=== PATIENT | female | born 1960 | race Caucasian/White ===

== ENCOUNTER 2016-09-06 23:08 | Emergency (ER) | payer MEDICARE ==
[2016-09-06] MEDS ORDERED: Norco 10/325 MG Tablet PO ONE (23:39)
--- NOTE | 2016-09-06 23:45 | ERPHSYRPT ---
- History of Present Illness Time Seen by Provider: 09/06/16 23:35 Source: patient Exam Limitations: clinical condition Patient Subjective Stated Complaint: pt states she tripped over her dog causing her to fall and hit the window on the car with the left side of her head so hard she thought she broke the window and thought there should be bleeding -she is unsure of the exact time it happened -no loc no vomiting she is tired and has been all day and has a persistant headache tonight so her family thought she should be checked -there in obvious sign of injury no contusion no deformity -she has sl right sided neck pain when she turns her head to the far left -no numbness or tingling in extremeties and has been able to drive to [employer] and all around today Triage Nursing Assessment: pt is awake and talkative and able to answer questions Physician History: PATIENT WALKING HER DOG YESTERDAY, TRIPPED AND STRUCK HER HEAD AGAINST THE CAR DOOR WINDOW SUSTAINED HEADACHE, NECK PAIN AND DIZZINESS SINCE YESTERDAY. DENIES LOSS OF CONSCIOUSNESS, NUMBNESS, TINGLING IN EXTREMITIES. Occurred: yesterday Severity: moderate Head Injury Location: frontal, temporal Method of Injury: direct blow, fell Loss of Consciousness: no loss of consciousness, dazed Associated Symptoms: headaches, other (DIZZINESS) Allergies/Adverse Reactions: aripiprazole [From Abilify] Allergy (Verified 09/06/16 23:38) cyclobenzaprine HCl [From Flexeril] Allergy (Verified 09/06/16 23:37) Home Medications: Albuterol Sulfate [Ventolin Hfa] 1 puffs DAILY 09/06/16 [History] Amitriptyline HCl [Elavil] 1 tab HS 09/06/16 [History] Bupropion HCl [Wellbutrin] 75 mg DAILY 09/06/16 [History] Clonazepam 0.5 mg [Klonopin 0.5 MG] 1 tab HS 09/06/16 [History] Escitalopram Oxalate 10 mg [Lexapro 10 MG] 15 mg PO DAILY 09/06/16 [History] Meclizine HCl 25 mg [Antivert 25 mg] 1 tab DAILY 09/06/16 [History] Multivitamin with Folic Acid [One Daily Multivitamin Tablet] 1 tab DAILY [History] Omeprazole 20 MG [Prilosec 20 mg] 1 tab DAILY 09/06/16 [History] Hx Tetanus, Diphtheria Vaccination/Date Given: No Hx Influenza Vaccination/Date Given: No Hx Pneumococcal Vaccination/Date Given: No Immunizations Up to Date: No - Review of Systems Constitutional: No Fever, No Chills Eyes: No Symptoms Ears, Nose, & Throat: No Symptoms Respiratory: No Symptoms, No Cough, No Dyspnea Cardiac: No Symptoms, No Chest Pain, No Edema, No Syncope Abdominal/Gastrointestinal: No Symptoms, No Abdominal Pain, No Nausea, No Vomiting, No Diarrhea Genitourinary Symptoms: No Dysuria Musculoskeletal: Neck Pain, No Back Pain Skin: No Rash Neurological: Other (DIZZINESS), No Dizziness, No Focal Weakness, No Sensory Changes Psychological: No Symptoms Endocrine: No Symptoms All Other Systems: Reviewed and Negative - Past Medical History Pertinent Past Medical History: Yes Neurological History: Other ENT History: No Pertinent History Cardiac History: Arrhythmia, Hypertension Respiratory History: COPD Endocrine Medical History: No Pertinent History Musculoskeletal History: Arthritis, Other GI Medical History: GERD History: No Pertinent History Psycho-Social History: Anxiety Female Reproductive Disorders: No Pertinent History Other Medical History: FREQUENT PVCs vertigo history of abnormal vag bleeding which she is being treated for - Past Surgical History Past Surgical History: Yes Neuro Surgical History: No Pertinent History Cardiac: No Pertinent History Respiratory: No Pertinent History Gastrointestinal: Cholecystectomy Musculoskeletal: Orthopedic Surgery Female Surgical History: Tubal Ligation Other Surgical History: l foot - Social History Smoking Status: Current every day smoker How long have you smoked: 30 Exposure to second hand smoke: Yes Drug Use: none Patient Lives Alone: No - Female History Hx Last Menstrual Period: 4 months ago Hx Now: No - Nursing Vital Signs Nursing Vital Signs: Initial Vital Signs Temperature 98.4 F Temperature Source Oral Pulse Rate 80 Respiratory Rate 16 Blood Pressure [Right Arm] 120/78 Pain Intensity 3 - Physical Exam General Appearance: no apparent distress, alert Head Injury: tenderness (ANTERIOR SCALP, LEFT TEMPORAL, NO SWELLILN OR ECCHYMOSIS) Eye Exam: bilateral eye: normal inspection, PERRL, EOMI ENT Exam: airway nml, evidence of ENT injury Neck Exam: muscle spasm, tenderness (A RIGID CERVICAL APPLIED UPON ARRIVAL TO EMERGENCY ROOM) Cardiovascular/Respiratory Exam: chest non-tender Gastrointestinal/Abdominal Exam: soft, non tender, no distention, no mass Pelvic Exam: not done Back Exam: normal inspection, normal range of motion Extremity Exam: non-tender, normal range of motion 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 Exam: normal hearing, abnormal pupil position Coordination/Gait Exam: normal finger to nose Motor/Sensory Exam: no motor deficit DTR Exam: bicep (R): 2+, bicep (L): 2+, tricep (R): 2+, tricep (L): 2+, knee (R) : 2+, knee (L): 2+, ankle (R): 2+, ankle (L): 2+ SpO2: 95 Oxygen Delivery: Room Air - CT Exams Head CT Interpretation: Tele-radiologist Report, No/Intracranial Hemorrhag Cervical Spine CT Interpretation: Tele-radiologist Report (NO FRACTURE, LOSS OF NORMAL CERVICAL LORDOSIS) Ordered Tests: Active Orders 24 hr Category Date Time Status Cervical Collar Application STAT Care 09/06/16 23:36 Active CERVICAL SPINE WO CONTRAST [CT] Stat Exams 09/06/16 23:36 Taken HEAD WITHOUT CONTRAST [CT] Stat Exams 09/06/16 23:36 Taken Medication Summary Discontinued Medications Generic Name Dose Route Start Last Admin Trade Name Jose PRN Reason Stop Dose Admin Acetaminophen 650 mg 09/07/16 00:16 09/07/16 00:21 Tylenol 325 Mg PO 09/07/16 00:17 650 mg STAT STA Administration Acetaminophen Confirm 09/07/16 00:20 Tylenol 325 Mg Administered 09/07/16 00:21 Dose 650 mg .ROUTE .STK-MED ONE Hydrocodone Bitart/Acetaminophen 1 tab 09/06/16 23:39 09/07/16 00:15 [place] 10/325 Mg Tablet PO 09/07/16 00:14 Not Given STAT ONE - Progress Progress Note: 09/06/16 23:47 PATIENT GIVEN TYLENOL 650MG ORALLY 09/07/16 00:46 Counseled pt/family regarding: diagnosis, need for follow-up, rad results - Departure Time of Disposition: 01:57 Departure Disposition: Home Clinical Impression: CLOSED HEAD SYNDROME, ACUTE CERVICAL STRAID Condition: Stable Critical Care Time: No Additional Instructions: [place] 5/325 EVERY 4 HOURS FOR PAIN NEEDED. CONSULT YOUR FAMILY PHYSICIAN FOR FOLLOWUP. RETURN TO THE EMERGENCY ROOM FOR INCREASING PAIN DISCOMFORT, Prescriptions: Hydrocodone/Acetaminophen [[place] 5-325 Tablet] 1 each PO Q4H PRN PRN #10 tablet PRN Reason: Pain
[2016-09-07] MEDS ORDERED: TYLENOL 325 MG PO STA (00:16)
[2016-09-07] MEDS ORDERED: TYLENOL 325 MG ONE (00:20)
[2016-09-07] MEDS ORDERED: Norco 10/325 MG Tablet PO ONE (00:54)
[2016-09-07] MEDS ORDERED: Norco 10/325 MG Tablet ONE (00:59)
[2016-09-07 01:18] VITALS: BP 121/78; PULSE 76; O2SAT 98
--- NOTE | 2016-09-07 09:08 | XRAY ---
Indication: Head injury against car. Multiple contiguous axial images obtained through the head without contrast. Comparison: None Normal appearing brain parenchyma, ventricles, and bony calvarium. Visualized paranasal sinuses and mastoid air cells are clear. Impression: Normal CT head without contrast exam. Comment: Preliminary interpretation was made by [facility]. No discrepancy. CT DI 51.54
--- NOTE | 2016-09-07 09:10 | XRAY ---
Indication: Head/neck injury against car. Multiple contiguous axial images obtained through the cervical spine. Sagittal and coronal reformatted images obtained. Comparison: None Axial images negative for acute fracture, suspicious bony lesions, or spinal canal stenosis. Minimal C3-C4 endplate spurring. Sagittal and coronal reformatted images demonstrates lordotic straightening, positional versus paraspinal muscular spasm. Disc spaces maintained. No acute compression fracture, subluxation, or jumped facet. Normal-appearing craniocervical junction. Visualized noncontrasted soft tissues demonstrates benign bilateral cervical nodes. Lung apices are clear. Impression: Negative for acute fracture/subluxation. Lordotic straightening, positional versus paraspinal spasm. Minimal C3-C4 degenerative spurring. Comment: Preliminary interpretation was made by [facility]. No critical discrepancy. CT DI 57.12
== END 2016-09-07 01:19 | disposition home or self-care (01) ==
LOC: ED 23:08
DX: S00.93XA Contusion of unspecified part of head, initial encounter (principal); S16.1XXA Strain of muscle, fascia and tendon at neck level, initial encounter; R51 Headache; W01.198A Fall on same level from slipping, tripping and stumbling with subsequent striking against other object, initial encounter; Y93.K1 Activity, walking an animal
CPT/HCPCS: 70450; 72125; 99283; L0172; A9270-GY

== ENCOUNTER 2017-05-11 05:55 | Day surgery (SDC) | payer MEDICARE ==
[2017-05-11] MEDS ORDERED: Ketamine HCl 50 MG/ML IV ONE (05:56)
[2017-05-11] MEDS ORDERED: DIPRIVAN 200 MG/20 ML IV ONE (05:56)
[2017-05-11] MEDS ORDERED: Lactated Ringers 1,000 ML IV SCH (06:30)
[2017-05-11 09:06] VITALS: BP 135/87; PULSE 85; O2SAT 93
--- NOTE | 2017-05-11 10:16 | OP ---
SURGERY DATE/TIME: 05/11/2017 0756 PREOPERATIVE DIAGNOSIS: Screening exam. POSTOPERATIVE DIAGNOSIS: Normal colon. PROCEDURE: Colonoscopy. SURGEON: Dr. Oconnell. ANESTHESIA: MAC. Medications given by anesthesia department. HISTORY: The patient is a 57 year-old white female presenting now for her first colonoscopy. She was appraised of the risks of the procedure including the risk of perforation, phlebitis, untoward reaction to medication, bleeding and missed lesions. The patient verbalized her understanding and desired to have the procedure performed. DESCRIPTION OF PROCEDURE: The patient was given the medications by the anesthesia department. She had continuous pulse oximetry, ECG monitoring, intermittent blood pressure monitoring and tidal CO2 monitoring during the examination. She was placed in the left lateral decubitus position. A digital rectal examination was performed and revealed normal anal sphincter tone and no masses. The flexible Olympus pediatric colonoscope was used to intubate the rectum. A view of the colon was developed sequentially to the cecum. Upon insertion and withdrawal, including a retroflex view in the rectum, no mucosal lesions were encountered. The scope was removed from the patient who tolerated the procedure well and was sent back to OP recovery in good condition. The prep was noted to be fair.
== END 2017-05-11 09:15 | disposition home or self-care (01) ==
LOC: SDC 05:55
PROVIDERS: ATTEND Family Medicine
PROC: 0DJD8ZZ Inspection of Lower Intestinal Tract, Via Natural or Artificial Opening Endoscopic (ICD-10-PCS; principal; 2017-05-11)
DX: Z12.11 Encounter for screening for malignant neoplasm of colon (principal)
CPT/HCPCS: 00812; J2704

== ENCOUNTER 2018-11-06 07:56 | Day surgery (SDC) | payer MEDICARE ==
[2012-03-02 23:16] VITALS: BP 140/80
[2018-11-06] MEDS ORDERED: Depo-Medrol 40 MG/ML IM ONE (07:57)
[2018-11-06] MEDS ORDERED: Marcaine 0.5% SDV 10 ML IJ ONE (07:57)
[2018-11-06] MEDS ORDERED: DIPRIVAN 200 MG/20 ML IV ONE (09:31)
[2018-11-06] MEDS ORDERED: Ketamine HCl 50 MG/ML ONE (09:31)
--- NOTE | 2018-11-06 11:35 | XRAY ---
4 seconds fluoroscopy time in surgery for left intra-articular knee injection.
--- NOTE | 2018-11-06 11:35 | XRAY ---
10 seconds fluoroscopy time in surgery for right intra-articular knee injection.
--- NOTE | 2018-11-06 11:35 | XRAY ---
Indication: Right knee intra-articular injection. Intraoperative fluoroscopy was provided for 10 seconds. Single digital spot image submitted for interpretation demonstrates needle tip projecting over the right intercondylar notch. Small amount of contrast injected for needle tip placement. Correlate with intraoperative findings/report.
--- NOTE | 2018-11-06 11:45 | XRAY ---
Indication: Left knee intra-articular injection. Intraoperative fluoroscopy was provided for 4 seconds. Single digital spot image submitted for interpretation demonstrates needle tip projecting over the left intercondylar notch. Small amount of contrast injected for needle tip placement. Correlate with intraoperative findings/report.
[2018-11-06] MEDS ORDERED: Lactated Ringers 1,000 ML IV ONE (13:10)
== END 2018-11-06 09:53 | disposition home or self-care (01) ==
LOC: SDC-PAIN 07:56
PROVIDERS: ATTEND Psychiatry & Neurology Pain Medicine
DX: M17.0 Bilateral primary osteoarthritis of knee (principal); E11.9 Type 2 diabetes mellitus without complications; E78.5 Hyperlipidemia, unspecified; F31.9 Bipolar disorder, unspecified; J44.9 Chronic obstructive pulmonary disease, unspecified; F41.9 Anxiety disorder, unspecified; I48.92 Unspecified atrial flutter; K21.9 Gastro-esophageal reflux disease without esophagitis; F17.200 Nicotine dependence, unspecified, uncomplicated
CPT/HCPCS: 20610; 73560; 77002; 82962; J1030; J2704; Q9966

== ENCOUNTER 2019-03-19 09:25 | Day surgery (SDC) | payer MEDICARE ==
[2012-03-02 23:16] VITALS: BP 140/80
[2019-03-19] MEDS ORDERED: Marcaine 0.5% SDV 10 ML IJ ONE (09:26)
[2019-03-19] MEDS ORDERED: Depo-Medrol 40 MG/ML IM ONE (09:26)
[2019-03-19] MEDS ORDERED: DIPRIVAN 200 MG/20 ML IV ONE (11:10)
[2019-03-19] MEDS ORDERED: Ketamine HCl 50 MG/ML ONE (11:10)
--- NOTE | 2019-03-19 12:38 | XRAY ---
9 seconds fluoroscopy time in surgery for left intra-articular shoulder injection.
--- NOTE | 2019-03-19 12:39 | XRAY ---
Indication: Left shoulder injection. Intraoperative fluoroscopy was provided for 9 seconds. Single digital spot image submitted for interpretation demonstrates needle tip projecting over the superior left glenohumeral joint. Small amount of contrast injected for needle tip placement. Correlate with intraoperative findings/report.
--- NOTE | 2019-03-19 12:39 | XRAY ---
Indication: Right shoulder injection. Intraoperative fluoroscopy was provided for 15 seconds. Single digital spot image submitted for interpretation demonstrates needle tip projecting over the superior right glenohumeral joint. Small amount of contrast injected for needle tip placement. Correlate with intraoperative findings/report.
--- NOTE | 2019-03-19 12:48 | XRAY ---
15 seconds fluoroscopy time in surgery for right intra-articular shoulder injection.
[2019-03-19] MEDS ORDERED: Lactated Ringers 1,000 ML IV ONE (15:17)
== END 2019-03-19 11:41 | disposition home or self-care (01) ==
LOC: SDC-PAIN 09:25
PROVIDERS: ATTEND Psychiatry & Neurology Pain Medicine
DX: M75.52 Bursitis of left shoulder (principal); M75.51 Bursitis of right shoulder; E78.5 Hyperlipidemia, unspecified; E11.9 Type 2 diabetes mellitus without complications; J44.9 Chronic obstructive pulmonary disease, unspecified; I48.92 Unspecified atrial flutter; K21.9 Gastro-esophageal reflux disease without esophagitis; F41.8 Other specified anxiety disorders; F31.9 Bipolar disorder, unspecified; Z79.899 Other long term (current) drug therapy
CPT/HCPCS: 20610; 73030; 77002; 82962; J1030; J2704; Q9966

== ENCOUNTER 2019-11-12 08:24 | Day surgery (SDC) | payer MEDICARE ==
[2012-03-02 23:16] VITALS: BP 140/80
[2019-11-12] MEDS ORDERED: Depo-Medrol 40 MG/ML IM ONE (08:25)
[2019-11-12] MEDS ORDERED: LIDOCAINE HCL 2% 100 MG/5 ML IJ ONE (08:25)
[2019-11-12] MEDS ORDERED: Ketamine HCl 50 MG/ML ONE (11:00)
[2019-11-12] MEDS ORDERED: DIPRIVAN 200 MG/20 ML IV ONE (11:00)
[2019-11-12] MEDS ORDERED: Lactated Ringers 1,000 ML IV ONE (13:52)
--- NOTE | 2019-11-15 17:58 | XRAY ---
Indication: Bilateral L3-S1 MBB. Intraoperative fluoroscopy was provided for 20 seconds. A PA digital spot image demonstrates posterior spinal needle tips projected over the expected course of the left and right L3-S1 nerve roots. Correlate with intraoperative findings/report.
--- NOTE | 2019-11-17 07:45 | XRAY ---
20 seconds fluoroscopy time in surgery for bilateral L3-S1 MBB.
== END 2019-11-12 11:32 | disposition home or self-care (01) ==
LOC: SDC-PAIN 08:24
PROVIDERS: ATTEND Psychiatry & Neurology Pain Medicine
DX: M47.816 Spondylosis without myelopathy or radiculopathy, lumbar region (principal); E11.9 Type 2 diabetes mellitus without complications; E78.5 Hyperlipidemia, unspecified; F31.9 Bipolar disorder, unspecified; I48.92 Unspecified atrial flutter; J44.9 Chronic obstructive pulmonary disease, unspecified; F41.9 Anxiety disorder, unspecified; Z79.899 Other long term (current) drug therapy
CPT/HCPCS: 64493; 64494; 64495; 72020; 77002; 82962; J1030; J2704

== ENCOUNTER 2019-12-19 15:50 | Emergency (ER) | payer MEDICARE ==
--- NOTE | 2019-12-19 16:27 | ERPHSYRPT ---
- History of Present Illness Time Seen by Provider: 12/19/19 16:05 Source: patient Exam Limitations: no limitations Patient Subjective Stated Complaint: fell a week ago today on a ramp and co pain to left hip, lower back and sacrum, she states her home pain meds are to working Triage Nursing Assessment: pt alert, resp easy, face mask in place, has large purple bruise to left buttuck, moves all ext well Physician History: This is an obese 59-year-old white female who has multiple pain issues and sees a pain specialist for chronic pain issues. She saw her pain specialist approximately 3 weeks ago. Patient does have chronic low back pain and presents with left hip pain, low back pain and pain in her coccyx after a fall that occurred 1 week ago when she slipped on a ramp at her home. She has no other complaints of pain today. Patient takes hydrocodone 7.5 daily for her chronic pain issues. she has noticed bruising in the coccyx area. She primarily wants to know if there is anything broken. Timing/Duration: week(s) Method of Injury: fall Quality: aching Back Pain Location: lumbar spine, coccyx Severity of Pain-Max: moderate Severity of Pain-Current: moderate Associated Symptoms: denies symptoms Previous symptoms: no prior history Allergies/Adverse Reactions: aripiprazole [From Abilify] Allergy (Verified 12/19/19 16:04) cyclobenzaprine HCl [From Flexeril] Allergy (Verified 12/19/19 16:04) Home Medications: Albuterol Sulfate [Ventolin Hfa] 1 puffs IH Q4HPRN PRN 09/06/16 [History] Bupropion HCl [Wellbutrin] 150 mg PO DAILY 09/06/16 [History] Meclizine HCl 25 mg [Antivert 25 mg] 12.5 mg PO DAILY 09/06/16 [History] Multivitamin with Folic Acid [One Daily Multivitamin Tablet] 1 tab DAILY 09/06/16 [History] Omeprazole 20 MG [Prilosec 20 mg] 1 tab PO DAILY 09/06/16 [History] Atorvastatin Calcium [Lipitor] 1 ea DAILY 12/19/19 [History] Hydrocodone/Acetaminophen [Hydrocodone-Acetamin 7.5-325] 1 ea TID 12/19/19 [History] Metformin HCl 500 mg [Glucophage 500 MG] 1 ea BID 12/19/19 [History] Quetiapine Fumarate 1 ea DAILY 12/19/19 [History] Hx Tetanus, Diphtheria Vaccination/Date Given: No Hx Influenza Vaccination/Date Given: No Hx Pneumococcal Vaccination/Date Given: No Immunizations Up to Date: Yes Travel Risk - International Travel Have you traveled outside of the country in past 3 weeks: No - Coronavirus Screening Are you exhibiting any of the following symptoms?: No Close contact with a COVID-19 positive Pt in past 14-21 Days: No - Review of Systems Constitutional: No Symptoms Eyes: No Symptoms Ears, Nose, & Throat: No Symptoms Respiratory: No Symptoms Cardiac: No Symptoms Abdominal/Gastrointestinal: No Symptoms Genitourinary Symptoms: No Symptoms Musculoskeletal: Back Pain, Fall, Injury Skin: Other (bruising ) Neurological: No Symptoms Psychological: No Symptoms Endocrine: No Symptoms Hematologic/Lymphatic: No Symptoms Immunological/Allergic: No Symptoms All Other Systems: Reviewed and Negative - Past Medical History Pertinent Past Medical History: Yes Neurological History: Other ENT History: Glaucoma Cardiac History: Arrhythmia, High Cholesterol, Hypertension Respiratory History: COPD Endocrine Medical History: Diabetes Type II Musculoskeletal History: Arthritis, Other GI Medical History: GERD History: No Pertinent History Psycho-Social History: Anxiety Female Reproductive Disorders: No Pertinent History Other Medical History: FREQUENT PVCs vertigo history of abnormal vag bleeding which she is being treated for - Past Surgical History Past Surgical History: Yes Neuro Surgical History: No Pertinent History Cardiac: No Pertinent History Respiratory: No Pertinent History Gastrointestinal: Cholecystectomy Genitourinary: No Pertinent History Musculoskeletal: Orthopedic Surgery Female Surgical History: Tubal Ligation, Other Other Surgical History: l foot,leep procedure - Social History Smoking Status: Current every day smoker How long have you smoked: 30 Exposure to second hand smoke: Yes Drug Use: none Patient Lives Alone: No - Female History Hx Last Menstrual Period: post Hx Now: No - Nursing Vital Signs Nursing Vital Signs: Initial Vital Signs Temperature 98.1 F 12/19/19 15:53 Pulse Rate 69 12/19/19 15:53 Respiratory Rate 18 12/19/19 15:53 Blood Pressure 142/78 12/19/19 15:53 O2 Sat by Pulse Oximetry 92 L 12/19/19 15:53 Pain Scale Pain Intensity [Sacrum] 8 Pain Intensity 8 - Physical Exam General Appearance: no apparent distress, alert, anxiety, obese Eye Exam: PERRL/EOMI, eyes nml inspection Ears, Nose, Throat Exam: normal ENT inspection, moist mucous membranes Neck Exam: normal inspection, non-tender, supple, full range of motion Respiratory Exam: normal breath sounds, lungs clear, airway intact, No chest tenderness, No respiratory distress Cardiovascular Exam: regular rate/rhythm, normal heart sounds, normal peripheral pulses Gastrointestinal Exam: soft, normal bowel sounds, No tenderness Pelvic Exam: not done Rectal Exam: not done Back Exam: normal inspection, normal range of motion, No CVA tenderness, No vertebral tenderness Extremity Exam: normal inspection, normal range of motion, pelvis stable Neurologic Exam: alert, oriented x 3, cooperative, pump mechanic II-XII nml as tested, normal mood/affect, nml cerebellar function, nml station & gait, sensation nml Skin Exam: normal color, warm, dry Lymphatic Exam: No adenopathy SpO2 Interpretation: borderline oxygenation SpO2: 92 O2 Delivery: Room Air - Course Nursing assessment & vital signs reviewed: Yes Ordered Tests: Active Orders 24 hr Category Date Time Status HIP UNI (2V) INCL PEL IF DONE Stat Exams 12/19/19 16:09 Ordered LUMBAR LIMITED (2 OR 3 VIEWS) Stat Exams 12/19/19 16:10 Ordered SACRUM AND COCCYX Stat Exams 12/19/19 Ordered - Progress Progress: unchanged Progress Note: 12/19/19 16:49 X-ray of pelvis shows no acute fracture dislocation X-ray of left hip shows no acute fracture or dislocation X-ray of sacrum and coccyx reveals no acute fracture or dislocation X-ray of lumbar spine reveals no acute fracture or subluxation. However there is a possible old/chronic posterior compression fracture present. Counseled pt/family regarding: diagnosis, need for follow-up, rad results - Departure Departure Disposition: Home Clinical Impression: Fall with injury, Contusion Condition: Stable Critical Care Time: No Referrals: AMALIA PINEDA MD [Primary Care Provider] - Additional Instructions: Ice pack to area 3 times a day for the next 48 hours. Take your hydrocodone at home as prescribed. Follow-up with your primary care or your pain specialist for further management of your pain issues.
--- NOTE | 2019-12-19 16:51 | XRAY ---
Indication: Pain left hip pain following fall one week ago. Comparison: None. 2 view left hip obtained. No bony, articular, or soft tissue abnormalities.
--- NOTE | 2019-12-19 16:51 | XRAY ---
Indication: Pain left hip pain following fall one week ago. Comparison: None. 3 view sacrum/coccyx demonstrates lower lumbar degenerative changes reported separately and mild aortoiliac calcifications. No other bony, articular, or soft tissue abnormalities.
--- NOTE | 2019-12-19 16:54 | XRAY ---
Indication: Pain left hip pain following fall one week ago. Comparison: January 24, 2012. 3 view lumbar spine unchanged again demonstrating normal alignment with L5-S1 disc space narrowing, moderate bilateral L5-S1 degenerative facet hypertrophy, mild aortic calcifications, and cholecystectomy clips. No new/acute findings.
[2019-12-19 16:57] VITALS: BP 111/63; PULSE 72; O2SAT 95
== END 2019-12-19 16:57 | disposition home or self-care (01) ==
LOC: ED 15:50
DX: S30.0XXS Contusion of lower back and pelvis, sequela (principal); W10.2XXA Fall (on)(from) incline, initial encounter; M25.552 Pain in left hip
CPT/HCPCS: 72100; 72220; 73502; 99283

== ENCOUNTER 2020-01-18 13:17 | Emergency (ER) | payer MEDICARE ==
[2020-01-18] MEDS ORDERED: XYLOCAINE 1% HCL 20 ML MDV IJ ONE (13:18)
--- NOTE | 2020-01-18 13:54 | ERPHSYRPT ---
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 hx abnormal vag bleeding in which OBGYN found fibroid tumor "when she did my pap smear. 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 reports bright red blood. post menopausal x 5 years. denies problems with urination or bowel. 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 hx abnormal vag bleeding in which OBGYN found fibroid tumor "when she did my pap smear. 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 reports bright red blood. post menopausal x 5 years. denies problems with urination or bowel. Timing/Duration: today Activites at Onset: none Quality: cramping Onset Location: LLQ Pain Radiation: none Severity of Pain-Max: mild Severity of Pain-Current: mild Prior abdominal problems: none Sexual intercourse history: non-contributory Modifying Factors: Improves With: nothing Associated Symptoms: denies symptoms Allergies/Adverse Reactions: aripiprazole [From Abilify] Allergy (Verified 01/18/20 13:34) cyclobenzaprine HCl [From Flexeril] Allergy (Verified 01/18/20 13:34) Home Medications: Albuterol Sulfate [Ventolin Hfa] 1 puffs IH Q4HPRN PRN 09/06/16 [History] Bupropion HCl [Wellbutrin] 150 mg PO DAILY 09/06/16 [History] Meclizine HCl 25 mg [Antivert 25 mg] 12.5 mg PO DAILY 09/06/16 [History] Multivitamin with Folic Acid [One Daily Multivitamin Tablet] 1 tab DAILY 09/06/16 [History] Omeprazole 20 MG [Prilosec 20 mg] 1 tab PO DAILY 09/06/16 [History] Atorvastatin Calcium [Lipitor] 1 ea DAILY 12/19/19 [History] Hydrocodone/Acetaminophen [Hydrocodone-Acetamin 7.5-325] 1 ea TID 12/19/19 [History] Metformin HCl 500 mg [Glucophage 500 MG] 1 ea BID 12/19/19 [History] Quetiapine Fumarate 1 ea DAILY 12/19/19 [History] Hx Tetanus, Diphtheria Vaccination/Date Given: Yes Hx Influenza Vaccination/Date Given: No Hx Pneumococcal Vaccination/Date Given: No Travel Risk - International Travel Have you traveled outside of the country in past 3 weeks: No - Coronavirus Screening Are you exhibiting any of the following symptoms?: No Close contact with a COVID-19 positive Pt in past 14-21 Days: No - Review of Systems Constitutional: No Fever, No Chills Eyes: No Symptoms Ears, Nose, & Throat: No Symptoms Respiratory: No Cough, No Dyspnea Cardiac: No Chest Pain, No Edema, No Syncope Abdominal/Gastrointestinal: No Abdominal Pain, No Nausea, No Vomiting, No Diarrhea Genitourinary Symptoms: Vaginal Bleeding, No Dysuria Musculoskeletal: No Back Pain, No Neck Pain Skin: No Rash Neurological: No Dizziness, No Focal Weakness, No Sensory Changes Psychological: No Symptoms Endocrine: No Symptoms All Other Systems: Reviewed and Negative - Past Medical History Pertinent Past Medical History: Yes Neurological History: Other ENT History: Glaucoma Cardiac History: Arrhythmia, High Cholesterol, Hypertension Respiratory History: COPD Endocrine Medical History: Diabetes Type II Musculoskeletal History: Arthritis, Other GI Medical History: GERD History: No Pertinent History Psycho-Social History: Anxiety Female Reproductive Disorders: No Pertinent History Other Medical History: FREQUENT PVCs vertigo history of abnormal vag bleeding which she is being treated for - Past Surgical History Past Surgical History: Yes Neuro Surgical History: No Pertinent History Cardiac: No Pertinent History Respiratory: No Pertinent History Gastrointestinal: Cholecystectomy Genitourinary: No Pertinent History Musculoskeletal: Orthopedic Surgery Female Surgical History: Tubal Ligation, Other Other Surgical History: l foot,leep procedure - Social History Smoking Status: Current every day smoker How long have you smoked: 30 Exposure to second hand smoke: Yes Drug Use: none Patient Lives Alone: No - Female History Hx Now: No - Nursing Vital Signs Nursing Vital Signs: Initial Vital Signs Temperature 98.3 F 01/18/20 13:33 Pulse Rate 72 01/18/20 13:33 Respiratory Rate 18 01/18/20 13:33 Blood Pressure 150/92 01/18/20 13:33 O2 Sat by Pulse Oximetry 93 L 01/18/20 13:33 Pain Scale Pain Intensity 1 - Physical Exam General Appearance: no apparent distress, alert Eye Exam: PERRL/EOMI, eyes nml inspection Ears, Nose, Throat Exam: normal ENT inspection, TMs normal, pharynx normal, moist mucous membranes Neck Exam: normal inspection, non-tender, supple, full range of motion Respiratory Exam: normal breath sounds, lungs clear, No respiratory distress Cardiovascular Exam: regular rate/rhythm, normal heart sounds, normal peripheral pulses Gastrointestinal/Abdomen Exam: soft, No tenderness, No mass Pelvic Exam: not done Rectal Exam: deferred Back Exam: normal inspection, normal range of motion, No CVA tenderness, No vertebral tenderness Extremity Exam: normal inspection, normal range of motion, pelvis stable Neurologic Exam: alert, oriented x 3, cooperative, utilization review nurse II-XII nml as tested, normal mood/affect, sensation nml, No motor deficits Skin Exam: normal color, warm, dry Lymphatic Exam: No adenopathy SpO2: 93 - Course Nursing assessment & vital signs reviewed: Yes Ordered Tests: Active Orders 24 hr Category Date Time Status PELVIS TRANS VAGINAL [US] Routine Exams 01/19/20 13:36 Ordered CBC W DIFF Stat Lab 01/18/20 14:00 Completed CMP Stat Lab 01/18/20 14:00 Received CULTURE,URINE Stat Lab 01/18/20 13:51 Received HCG, Quantitative (Inhouse) Stat Lab 01/18/20 14:00 Received UA W/RFX UR CULTURE Stat Lab 01/18/20 13:51 Completed Lab/Rad Data: Laboratory Result Diagrams 01/18/20 14:00 Laboratory Results 01/18/20 01/18/20 Range/Units 14:00 13:51 WBC 8.5 (4.0-10.5) K/mm3 RBC 4.51 (4.1-5.4) M/mm3 Hgb 15.0 (12.0-16.0) gm/dl Hct 46.4 (35-47) % MCV 102.9 H (78-100) fl MCH 33.3 H (26-32) pg MCHC 32.3 (32-36) g/dl RDW 14.1 H (11.5-14.0) % Plt Count 216 (150-450) K/mm3 MPV 8.5 (7.5-11.0) fl Gran % 64.5 (36.0-66.0) % Eos # (Auto) 0.10 (0-0.5) Absolute Lymphs (auto) 2.40 (1.0-4.6) Absolute Monos (auto) 0.50 (0.0-1.3) Lymphocytes % 28.2 (24.0-44.0) % Monocytes % 5.9 (0.0-12.0) % Eosinophils % 1.2 (0.00-5.0) % Basophils % 0.2 (0.0-0.4) % Absolute Granulocytes 5.48 (1.4-6.9) Basophils # 0.02 (0-0.4) Urine Color YELLOW (YELLOW) Urine Appearance CLEAR (CLEAR) Urine pH 6.0 (5-6) Ur Specific Occidental 1.013 (1.005-1.025) Urine Protein NEGATIVE (Negative) Urine Ketones NEGATIVE (NEGATIVE) Urine Blood MODERATE (0-5) Edin/ul Urine Nitrite NEGATIVE (NEGATIVE) Urine Bilirubin NEGATIVE (NEGATIVE) Urine Urobilinogen NEGATIVE (0-1) mg/dL Ur Leukocyte Esterase MODERATE (NEGATIVE) Urine WBC (Auto) 16-25 (0-5) /HPF Urine RBC (Auto) 0-2 (0-2) /HPF U Epithel Cells (Auto) NONE (FEW) /HPF Urine Bacteria (Auto) FEW (NEGATIVE) /HPF Unidentified Crystals 2-5 (NEGATIVE) /HPF Urine Mucus (Auto) SLIGHT (NEGATIVE) /HPF Urine Yeast (Budding) Few (NEGATIVE) /HPF Urine Culture Reflexed YES (NO) Urine Glucose NEGATIVE (NEGATIVE) mg/dL - Progress Progress: unchanged Air Movement: good Progress Note: 01/18/20 13:55 .Patient pelvic ultrasound transvaginal is ordered. Patient is going to get that ultrasound tomorrow at 1:30 PM. Outpatient order form given to the patient. Blood Culture(s) Obtained: No Antibiotics given: No Counseled pt/family regarding: diagnosis, need for follow-up (Pelvic transvginal US ordered for 01/19/2020 at 130 pm) - Departure Departure Disposition: Home Clinical Impression: Abnormal vaginal bleeding in postmenopausal patient Fibroid uterus Qualifiers: Uterine leiomyoma location: intramural Qualified Code(s): D25.1 - Intramural leiomyoma of uterus UTI (urinary tract infection) Qualifiers: Urinary tract infection type: acute pyelonephritis Qualified Code(s): N10 - Acute pyelonephritis Condition: Stable Critical Care Time: No Referrals: AMALIA PINEDA MD [Primary Care Provider] - Instructions: Uterine Fibroids, Heavy Periods (DC) Additional Instructions: Schedule for pelvic ultrasound tomorrow at 1:30 PM. Please bring these o utpatient form with you tomorrow. Discharge/Care Plan JOYCE THOMAS was seen on 01/18/20 in the Emergency Room. The patient was counseled regarding Diagnosis,Lab results, Imaging studies, need for follow up and when to return to the Emergency Room. Prescriptions given: Discharge Note I have spoken with the patient and/or caregivers. I have explained the patient's condition, diagnosis and treatment plan based on the information available to me at this time. I have answered the patient's and/or caregiver's questions and addressed any concerns. The patient and/or caregivers have as good understanding of the patient's diagnosis, condition and treatment plan as can be expected at this point. The vital signs have been stable. The patient's condition is stable and appropriate for discharge from the emergency department. The patient will pursue further outpatient evaluation with the primary care physician or other designated or consulting physician as outlined in the discharge instructions. The patient and/or caregivers are agreeable to this plan of care and follow-up instructions have been explained in detail. The patient and/or caregivers have received these instruction. The patient/and or caregivers are aware that any significant change in condition or worsening of symptoms should prompt an immediate return to this or the closest emergency department or call 911. JOYCE THOMAS was seen on 01/18/20 n the Emergency Room. At that time you were treated for an emergent condition, during your visit Laboratory, Radiology and/or other procedures may have been ordered. It is very important that you follow-up with your Primary Care Physician AMALIA PINEDA within the next 24-48 hours to review your Emergency Room visit and the final results of testing that was ordered. Some test results such as Urine Cultures, Blood Cultures, and other cultures if ordered will not be finalized for 24-48 hours. If you do not have a Primary Care Provider please call the medical records department at [phone] ext [phone] to obtain a copy of your results or you may sign into our patient portal to obtain these results by visiting us @ [email or web address] and completing the following steps: 1. Click on the Patient Portal link 2. Click the Patient Self Enrollment Link to complete the enrollment form and entering your 3. Once the enrollment form is completed you will receive an email with a temporary ID and password at the email address you provided. 4. Next choose a user name and password. Your user name must be at least 4 misael cters long and your password must be at least 4 characters long. 5. Choose a security question from the list and provide your answer to the question. If you already have signed into the Health Portal you may access your Health Care Information 13/11 by the following steps: 1. Login to our website @ [email or web address] 2. Enter your original user name and password. FAQS The [facility] Portal is an online tool that contains your Lab Results, Radiology Reports, Visit History, Discharge Instructions and Health Summary Lab and Radiology Results will not be available for 72 hours on the portal. The Portal is a secure site, passwords are encryted and URLs are re-written so they cannot be copied and pasted. You and authorized family members are the only ones who can access your Portal. Also there is a timeout feature that protects your information if you leave the Portal page open. If you have technical difficulty please use the Contact Us link on the page this will allow you to submit any questions you have regarding the Portal or you may contact the Medical Record Department at [phone]. Prescriptions: Smz/Tmp Ds Tablet [Bactrim Ds Tablet] 1 udtab PO BID #20 tablet
[2020-01-18 14:24] LABS: Absolute Neutrophil Ct (ANC) 5.48 (1.4-6.9); BASOPHIL % 0.2 % (0.0-0.4); Basophil (Absolute #) 0.02 (0-0.4); Eosinophil % 1.2 % (0.00-5.0); Hematocrit 46.4 % (35-47); Lymphocytes % 28.2 % (24.0-44.0); Mean Cell Volume 102.9 fl (78-100); Mean Corpuscular Hemoglobin 33.3 pg (26-32); Mean Corpuscular Hgb Concent. 32.3 g/dl (32-36); Mean Platelet Volume 8.5 fl (7.5-11.0); Monocytes % 5.9 % (0.0-12.0); Neutrophil % 64.5 % (36.0-66.0); Platelet Count 216 K/mm3 (150-450); Red Blood Count 4.51 M/mm3 (4.1-5.4); Red Cell Distribution Width 14.1 % (11.5-14.0); White Blood Count 8.5 K/mm3 (4.0-10.5)
[2020-01-18 14:35] LABS: Appearance CLEAR (CLEAR); Bacteria FEW /HPF (NEGATIVE); Bilirubin NEGATIVE (NEGATIVE); Blood MODERATE Ery/ul (0-5); Glucose NEGATIVE (NEGATIVE); Ketones NEGATIVE (NEGATIVE); Leukocyte Esterase MODERATE (NEGATIVE); Mucus SLIGHT /HPF (NEGATIVE); Nitrite NEGATIVE (NEGATIVE); Protein,Urine Dip NEGATIVE (Negative); RBC 0-2 /HPF (0-2); Specific Gravity 1.013 (1.005-1.025); Urobilinogen NEGATIVE mg/dL (0-1)
[2020-01-18 14:40] LABS: Budding Yeast Few /HPF (NEGATIVE)
[2020-01-18 14:50] LABS: ALBUMIN 3.9 g/dL (3.5-5.0); ALKALINE PHOSPHATASE 87 U/L (38-126); ANION GAP 6.4 MEQ/L (5-15); BLOOD UREA NITROGEN 12 mg/dL (7-17); CHLORIDE 104 mmol/L (98-107); Calcium 8.8 mg/dL (8.4-10.2); Carbon Dioxide 33 mmol/L (22-30); Creatinine 1 0.68 mg/dL (0.52-1.04); EST GLOMERULAR FILTRATION RATE > 60.0 ML/MIN; Glucose 124 mg/dL (74-106); HCG, Quantitative (Inhouse) 3.25 mIU/ml; Potassium 4.4 mmol/L (3.5-5.1); SGOT/AST 33 U/L (14-36); SGPT/ALT 18 U/L (0-35); SODIUM 139 mmol/L (137-145); Total Protein 6.6 g/dL (6.3-8.2)
[2020-01-18] MEDS ORDERED: Rocephin 1000 MG INJ IM ONE (14:50)
[2020-01-18] MEDS ORDERED: Rocephin 1000 MG INJ ONE (14:53)
[2020-01-18 15:08] VITALS: BP 133/83; PULSE 69; O2SAT 99
== END 2020-01-18 15:30 | disposition home or self-care (01) ==
LOC: ED 13:17
DX: N95.0 Postmenopausal bleeding (principal); N10 Acute pyelonephritis; R10.32 Left lower quadrant pain; D25.1 Intramural leiomyoma of uterus; N39.0 Urinary tract infection, site not specified
CPT/HCPCS: 36415; 80053; 81001; 84702; 85025; 87077; 87086; 87186; 96372; 99284; J0696

== ENCOUNTER 2020-03-30 06:06 | Day surgery (SDC) | payer MEDICARE ==
[2020-03-30] MEDS ORDERED: CEFAZOLIN 2 GM-D5W BAG** 2 GM/50 ML ML IV ONE (06:52)
[2020-03-30] MEDS ORDERED: Lactated Ringers 1,000 ML IV ONE (06:52)
[2020-03-30] MEDS ORDERED: Lactated Ringers 1,000 ML IV SCH (07:00)
[2020-03-30] MEDS ORDERED: CEFAZOLIN 2 GM-D5W BAG** 2 GM/50 ML ML IV SCH (07:00)
[2020-03-30] MEDS ORDERED: Xopenex 1.25 MG/0.5 ML UD NEBULE IH ONE ×2 (07:29→07:43)
[2020-03-30] MEDS ORDERED: Sodium Chloride 3 ML UD NEBULES IH ONE (07:43)
[2020-03-30] MEDS ORDERED: SUBLIMAZE 100 MCG/2 ML ONE (08:27)
[2020-03-30] MEDS ORDERED: Zofran 4 MG/2 ML VIAL ONE (08:27)
[2020-03-30] MEDS ORDERED: DIPRIVAN 200 MG/20 ML IV ONE (08:27)
[2020-03-30] MEDS ORDERED: Decadron 4 MG INJ ONE (08:27)
[2020-03-30] MEDS ORDERED: Versed 2 MG/2 ML Injection ONE (08:27)
[2020-03-30] MEDS ORDERED: Xylocaine-Mpf 2% 5 Ml Vial ONE (08:27)
[2020-03-30] MEDS ORDERED: TORAdol 30 mg Injection ONE (09:30)
[2020-03-30 10:06] VITALS: PULSE 70
[2020-03-30 10:26] VITALS: BP 155/77; O2SAT 99
--- NOTE | 2020-03-31 09:54 | OP ---
SURGERY DATE/TIME: 03/30/2020 0833 PREOPERATIVE DIAGNOSES: 1) Abnormal uterine bleeding. 2) Postmenopausal bleeding and submucosal fibroid. POSTOPERATIVE DIAGNOSES: 1) Abnormal uterine bleeding. 2) Postmenopausal bleeding. There was no submucosal fibroid that was noted. PROCEDURE: Hysteroscopy, D&C. SURGEON: Kirk Mooney D.O. CAN SLIDER: advanced manufacturing technician. ANESTHESIA: General. ESTIMATED BLOOD LOSS: Minimal. COMPLICATIONS: None. INDICATIONS: The risks, benefits, indications and alternatives of the procedure were reviewed with the patient prior to procedure. The patient understood the risk of infection, bleeding, bowel injury, bladder injury, ureteral injury, uterine perforation, pelvic infection and thromboembolic disorder associated with this surgery. However desires to have this surgery as a possible need to alleviate her current medical condition. DESCRIPTION OF PROCEDURE AND FINDINGS: At this point the patient is taken to the operating room, given general sedation, placed in dorsal lithotomy position. Prepped and draped in the usual sterile fashion. A weighted speculum is then placed in the patient's vagina and the anterior lip of the cervix was grasped with a single tooth tenaculum. Endocervical dilators are advanced through the endocervical canal as a means to dilate the cervix. At this point a 5 mm hysteroscope was then placed in through the endocervical canal where visualization revealed no gross abnormalities in the uterine cavity. From this point the hysteroscope was then removed and the curette was then placed into the fundal region where currettage was performed in all quadrants of the uterus retrieving a mild to moderate amount of tissue. At this point hemostasis was obtained. From this point all instruments were then removed from the patient's vaginal region. The patient was then taken out of anesthesia and then taken to the recovery room in stable condition. All instruments and laps were accounted for x2.
== END 2020-03-30 10:30 | disposition home or self-care (01) ==
LOC: SDC 06:06
PROVIDERS: ATTEND Obstetrics & Gynecology
DX: N95.0 Postmenopausal bleeding (principal); N93.9 Abnormal uterine and vaginal bleeding, unspecified; E11.9 Type 2 diabetes mellitus without complications; Z79.899 Other long term (current) drug therapy
CPT/HCPCS: 82947; 94640; J0690; J1100; J1885; J2250; J2405; J2704; J3010; A9270-GY

== ENCOUNTER 2020-05-26 09:24 | Day surgery (SDC) | payer MEDICARE ==
[2012-03-02 23:16] VITALS: BP 140/80
[2020-05-26] MEDS ORDERED: BUPIVACAINE 0.5% VIAL IJ ONE (09:25)
[2020-05-26] MEDS ORDERED: Depo-Medrol 40 MG/ML IM ONE (09:25)
[2020-05-26] MEDS ORDERED: DIPRIVAN 200 MG/20 ML IV ONE (11:31)
[2020-05-26] MEDS ORDERED: Ketamine HCl 50 MG/ML ONE (11:31)
--- NOTE | 2020-05-26 12:08 | XRAY ---
Indication: Bilateral L3-S1 MBB. Intraoperative fluoroscopy was provided for 21 seconds. Single digital spot image submitted for interpretation demonstrates posterior needle tips projecting over the expected left and right L3-S1 nerve roots. Correlate with intraoperative findings/report.
--- NOTE | 2020-05-26 12:13 | XRAY ---
21 seconds fluoroscopy time in surgery for bilateral L3-S1 MBB.
[2020-05-26] MEDS ORDERED: Lactated Ringers 1,000 ML IV ONE (14:39)
== END 2020-05-26 11:56 | disposition home or self-care (01) ==
LOC: SDC-PAIN 09:24
PROVIDERS: ATTEND Psychiatry & Neurology Pain Medicine
DX: M47.816 Spondylosis without myelopathy or radiculopathy, lumbar region (principal); E11.9 Type 2 diabetes mellitus without complications; E78.5 Hyperlipidemia, unspecified; J44.9 Chronic obstructive pulmonary disease, unspecified; K21.9 Gastro-esophageal reflux disease without esophagitis; F31.9 Bipolar disorder, unspecified; Z79.899 Other long term (current) drug therapy
CPT/HCPCS: 64493; 64494; 64495; 72020; 77002; 82947; J1030; J2704

== ENCOUNTER 2020-06-15 16:37 | Emergency (ER) | payer MEDICARE ==
[2020-06-15] MEDS ORDERED: BABY ASPIRIN 81 MG CHEW PO ONE (17:55)
--- NOTE | 2020-06-15 17:59 | ERPHSYRPT ---
- History of Present Illness Time Seen by Provider: 06/15/20 17:00 Source: patient Exam Limitations: no limitations Patient Subjective Stated Complaint: pt here for headache frontal for 06/03 after starting on percocet, stoped meds on . which helped her headache, she aslo was at eye dr today and has high pressures in eye, and is started on new drops today Triage Nursing Assessment: pt alert, resp easy, face mask in place, skin w/d/p Physician History: Patient is a 60-year-old female presents to our ED for evaluation of possible ACS. Patient states she has a history of chronic low back pain. Patient's pain doctor started her on Percocet. Patient states the Percocet has been causing her to experience a headache. Patient followed up with her primary care doctor. Patient reports that her doctor was concerned because she appeared to be diaphoretic in the office. Therefore patient was sent to our ED to assess for possible acute coronary syndrome. Patient does not have chest pain. Patient denied being diaphoretic. Patient is here per her primary care doctor's request. No nausea or vomiting. No diaphoresis at time of this physical examination. Patient only complains of a mild frontal headache for which she does not want to be treated. No associated numbness tingling or weakness. No trauma. No fever. Patient voices no other complaints or concerns at this time. Timing/Duration: today Severity: mild Modifying Factors: Improves With: nothing Associated Symptoms: denies symptoms Allergies/Adverse Reactions: aripiprazole [From Abilify] Allergy (Severe, Verified 06/15/20 16:44) Lightheadedness cyclobenzaprine HCl [From Flexeril] Allergy (Severe, Verified 06/15/20 16:44) Lightheadedness Home Medications: Bupropion HCl [Wellbutrin] 150 mg PO DAILY 09/06/16 [History] Meclizine HCl 25 mg [Antivert 25 mg] 25 mg PO DAILY 09/06/16 [History] Omeprazole 20 MG [Prilosec 20 mg] 1 tab PO DAILY 09/06/16 [History] Atorvastatin Calcium [Lipitor] 1 ea PO DAILY 12/19/19 [History] Hydrocodone/Acetaminophen [Hydrocodone-Acetamin 7.5-325] 1 ea PO TID 12/19/19 [History] Metformin HCl 500 mg [Glucophage 500 MG] 1 ea DAILY 12/19/19 [History] Quetiapine Fumarate 100 mg PO HS 12/19/19 [History] Naproxen Sodium [Aleve] 220 mg PO Q6HPRN PRN 03/10/20 [History] Docusate Sodium [Colace] 100 mg PO DAILY 03/30/20 [History] Escitalopram Oxalate [Lexapro] 20 mg PO DAILY 03/30/20 [History] Nebivolol HCl 5 MG [Bystolic 5 MG] 5 mg PO DAILY 03/30/20 [History] Quetiapine Fumarate 25 mg [Seroquel 25 MG] 25 mg PO BID 03/30/20 [History] Hx Tetanus, Diphtheria Vaccination/Date Given: Yes Hx Influenza Vaccination/Date Given: No Hx Pneumococcal Vaccination/Date Given: No Immunizations Up to Date: Yes Travel Risk - International Travel Have you traveled outside of the country in past 3 weeks: No - Coronavirus Screening Are you exhibiting any of the following symptoms?: No Close contact with a COVID-19 positive Pt in past 14-21 Days: No - Review of Systems Constitutional: No Symptoms, No Fever, No Chills Eyes: No Symptoms Ears, Nose, & Throat: No Symptoms Respiratory: No Symptoms, No Cough, No Dyspnea Cardiac: No Symptoms, No Chest Pain, No Edema, No Syncope Abdominal/Gastrointestinal: No Symptoms, No Abdominal Pain, No Nausea, No Vomiting, No Diarrhea Genitourinary Symptoms: No Symptoms, No Dysuria Musculoskeletal: No Symptoms, No Back Pain, No Neck Pain Skin: No Symptoms, No Rash Neurological: No Symptoms, No Dizziness, No Focal Weakness, No Sensory Changes Psychological: No Symptoms Endocrine: No Symptoms Hematologic/Lymphatic: No Symptoms Immunological/Allergic: No Symptoms All Other Systems: Reviewed and Negative - Past Medical History Pertinent Past Medical History: Yes Neurological History: Other ENT History: Glaucoma Cardiac History: Arrhythmia, High Cholesterol, Hypertension Respiratory History: COPD Endocrine Medical History: Diabetes Type II Musculoskeletal History: Arthritis, Other GI Medical History: GERD History: No Pertinent History Psycho-Social History: Anxiety Female Reproductive Disorders: No Pertinent History Other Medical History: FREQUENT PVCs vertigo history of abnormal vag bleeding which she is being treated for - Past Surgical History Past Surgical History: Yes Neuro Surgical History: No Pertinent History Cardiac: No Pertinent History Respiratory: No Pertinent History Gastrointestinal: Cholecystectomy Genitourinary: No Pertinent History Musculoskeletal: Orthopedic Surgery Female Surgical History: Tubal Ligation, Other Other Surgical History: l foot,leep procedure. laser eye surgery - Social History Smoking Status: Current every day smoker How long have you smoked: 30 Exposure to second hand smoke: Yes Drug Use: none Patient Lives Alone: No - Female History Hx Last Menstrual Period: post Hx Now: No - Nursing Vital Signs Nursing Vital Signs: Initial Vital Signs Temperature 97.2 F 06/15/20 16:55 Pulse Rate 77 06/15/20 16:55 Respiratory Rate 18 06/15/20 16:55 Blood Pressure 130/82 06/15/20 16:55 O2 Sat by Pulse Oximetry 95 06/15/20 16:55 Pain Scale Pain Intensity 4 - Physical Exam General Appearance: no apparent distress, alert Eye Exam: PERRL/EOMI, eyes nml inspection Ears, Nose, Throat Exam: normal ENT inspection, TMs normal, pharynx normal, m oist mucous membranes Neck Exam: normal inspection, non-tender, supple, full range of motion Respiratory Exam: normal breath sounds, lungs clear, No respiratory distress Cardiovascular Exam: regular rate/rhythm, normal heart sounds, normal peripheral pulses Gastrointestinal/Abdomen Exam: soft, normal bowel sounds, No tenderness, No mass Back Exam: normal inspection, normal range of motion, No CVA tenderness, No vertebral tenderness Extremity Exam: normal inspection, normal range of motion, pelvis stable Neurologic Exam: alert, oriented x 3, cooperative, surgery specialist II-XII nml as tested, normal mood/affect, nml cerebellar function, nml station & gait, sensation nml, No motor deficits, No sensory deficit Skin Exam: normal color, warm, dry, No rash Lymphatic Exam: No adenopathy SpO2 Interpretation: normal SpO2: 95 O2 Delivery: Room Air - Course Nursing assessment & vital signs reviewed: Yes EKG Interpreted by Me: RATE (69), Sinus Rhythm, NORMAL AXIS, NORMAL INTERVALS - Radiology Exams Chest X-ray Interpretation: Interpreted by me (Negative chest x-ray.) Ordered Tests: Active Orders 24 hr Category Date Time Status Quality Control Tech STAT Care 06/15/20 17:53 Active EKG-ER Only STAT Care 06/15/20 17:52 Active IV Insertion STAT Care 06/15/20 17:52 Active Pulse Oximetry (ED) STAT Care 06/15/20 17:52 Active CHEST 1 VIEW (PORTABLE) Stat Exams 06/15/20 17:53 Taken CBC W DIFF Stat Lab 06/15/20 06:10 Completed CMP Stat Lab 06/15/20 06:10 Completed MAGNESIUM Stat Lab 06/15/20 06:10 Completed TROPONIN Q3H Lab 06/15/20 06:10 Completed TROPONIN Q3H Lab 06/15/20 20:41 Completed TROPONIN Q3H Lab 06/16/20 00:00 Ordered TROPONIN Q3H Lab 06/16/20 03:00 Ordered TROPONIN Q3H Lab 06/16/20 06:00 Ordered UA W/RFX UR CULTURE Stat Lab 06/15/20 20:24 Completed Medication Summary Discontinued Medications Generic Name Dose Route Start Last Admin Trade Name Freq PRN Reason Stop Dose Admin Aspirin 324 mg 06/15/20 17:55 06/15/20 18:01 Baby Aspirin 81 Mg Chew PO 06/15/20 17:56 324 mg STAT ONE Administration Lab/Rad Data: Laboratory Result Diagrams 06/15/20 06:10 06/15/20 06:10 Laboratory Results 06/15/20 06/15/20 06/15/20 Range/Units 20:41 20:24 06:10 WBC (4.0-10.5) K/mm3 RBC (4.1-5.4) M/mm3 Hgb (12.0-16.0) gm/dl Hct (35-47) % MCV (78-100) fl MCH (26-32) pg MCHC (32-36) g/dl RDW (11.5-14.0) % Plt Count (150-450) K/mm3 MPV (7.5-11.0) fl Gran % (36.0-66.0) % Eos # (Auto) (0-0.5) Absolute Lymphs (auto) (1.0-4.6) Absolute Monos (auto) (0.0-1.3) Lymphocytes % (24.0-44.0) % Monocytes % (0.0-12.0) % Eosinophils % (0.00-5.0) % Basophils % (0.0-0.4) % Absolute Granulocytes (1.4-6.9) Basophils # (0-0.4) Sodium (137-145) mmol/L Potassium (3.5-5.1) mmol/L Chloride (98-107) mmol/L Carbon Dioxide (22-30) mmol/L Anion Gap (5-15) MEQ/L BUN (7-17) mg/dL Creatinine (0.52-1.04) mg/dL Estimated GFR ML/MIN Glucose (74-106) mg/dL Calcium (8.4-10.2) mg/dL Magnesium (1.6-2.3) mg/dL Total Bilirubin (0.2-1.3) mg/dL AST (14-36) U/L ALT (0-35) U/L Alkaline Phosphatase (38-126) U/L Troponin I < 0.012 < 0.012 (0.000-0.034) ng/mL Serum Total Protein (6.3-8.2) g/dL Albumin (3.5-5.0) g/dL Urine Color YELLOW (YELLOW) Urine Appearance CLEAR (CLEAR) Urine pH 6.0 (5-6) Ur Specific [place] 1.017 (1.005-1.025) Urine Protein NEGATIVE (Negative) Urine Ketones NEGATIVE (NEGATIVE) Urine Blood NEGATIVE (0-5) Edin/ul Urine Nitrite NEGATIVE (NEGATIVE) Urine Bilirubin NEGATIVE (NEGATIVE) Urine Urobilinogen NEGATIVE (0-1) mg/dL Ur Leukocyte Esterase NEGATIVE (NEGATIVE) Urine WBC (Auto) 0-2 (0-5) /HPF Urine RBC (Auto) NONE (0-2) /HPF U Hyaline Cast (Auto) 0-2 (0-2) /LPF U Epithel Cells (Auto) RARE (FEW) /HPF Urine Bacteria (Auto) NONE SEEN (NEGATIVE) /HPF Urine Mucus (Auto) SLIGHT (NEGATIVE) /HPF Urine Culture Reflexed NO (NO) Urine Glucose NEGATIVE (NEGATIVE) mg/dL 06/15/20 06/15/20 Range/Units 06:10 06:10 WBC 9.4 (4.0-10.5) K/mm3 RBC 4.85 (4.1-5.4) M/mm3 Hgb 15.0 (12.0-16.0) gm/dl Hct 48.6 H (35-47) % MCV 100.2 H (78-100) fl MCH 30.9 (26-32) pg MCHC 30.9 L (32-36) g/dl RDW 14.0 (11.5-14.0) % Plt Count 206 (150-450) K/mm3 MPV 8.2 (7.5-11.0) fl Gran % 69.5 H (36.0-66.0) % Eos # (Auto) 0.09 (0-0.5) Absolute Lymphs (auto) 2.19 (1.0-4.6) Absolute Monos (auto) 0.56 (0.0-1.3) Lymphocytes % 23.3 L (24.0-44.0) % Monocytes % 6.0 (0.0-12.0) % Eosinophils % 1.0 (0.00-5.0) % Basophils % 0.2 (0.0-0.4) % Absolute Granulocytes 6.54 (1.4-6.9) Basophils # 0.02 (0-0.4) Sodium 135 L (137-145) mmol/L Potassium 4.9 (3.5-5.1) mmol/L Chloride 99 (98-107) mmol/L Carbon Dioxide 33 H (22-30) mmol/L Anion Gap 7.9 (5-15) MEQ/L BUN 15 (7-17) mg/dL Creatinine 0.63 (0.52-1.04) mg/dL Estimated GFR > 60.0 ML/MIN Glucose 116 H (74-106) mg/dL Calcium 9.8 (8.4-10.2) mg/dL Magnesium 1.9 (1.6-2.3) mg/dL Total Bilirubin 0.60 (0.2-1.3) mg/dL AST 33 (14-36) U/L ALT 25 (0-35) U/L Alkaline Phosphatase 83 (38-126) U/L Troponin I (0.000-0.034) ng/mL Serum Total Protein 7.2 (6.3-8.2) g/dL Albumin 4.1 (3.5-5.0) g/dL Urine Color (YELLOW) Urine Appearance (CLEAR) Urine pH (5-6) Ur Specific [place] (1.005-1.025) Urine Protein (Negative) Urine Ketones (NEGATIVE) Urine Blood (0-5) Edin/ul Urine Nitrite (NEGATIVE) Urine Bilirubin (NEGATIVE) Urine Urobilinogen (0-1) mg/dL Ur Leukocyte Esterase (NEGATIVE) Urine WBC (Auto) (0-5) /HPF Urine RBC (Auto) (0-2) /HPF U Hyaline Cast (Auto) (0-2) /LPF U Epithel Cells (Auto) (FEW) /HPF Urine Bacteria (Auto) (NEGATIVE) /HPF Urine Mucus (Auto) (NEGATIVE) /HPF Urine Culture Reflexed (NO) Urine Glucose (NEGATIVE) mg/dL - Progress Progress: improved Progress Note: 06/15/20 21:24 Patient reassessed. She remains asymptomatic. Troponin negative x2. Patient has no chest pain or shortness of breath. No nausea vomiting. No diaphoresis. Headache resolved. Chest x-ray negative as well. Patient requesting discharge. Will discharge at this time. Patient agrees to follow-up with her primary care doctor within 48 hours for reevaluation. Patient voices no other complaints concerns at this time. Counseled pt/family regarding: lab results, diagnosis, need for follow-up, rad results - Departure Departure Disposition: Home Clinical Impression: Encounter for medical screening examination, Cough, Diaphoresis Condition: Stable Critical Care Time: No Referrals: AMALIA PINEDA MD [Primary Care Provider] - Additional Instructions: Discharge/Care Plan MARTHAJOYCE LIM was seen on 06/15/20 in the Emergency Room. The patient was counseled regarding Diagnosis,Lab results, Imaging studies, need for follow up and when to return to the Emergency Room. Prescriptions given: Discharge Note I have spoken with the patient and/or caregivers. I have explained the patient's condition, diagnosis and treatment plan based on the information available to me at this time. I have answered the patient's and/or caregiver's questions and addressed any concerns. The patient and/or caregivers have as good understanding of the patient's diagnosis, condition and treatment plan as can be expected at this point. The vital signs have been stable. The patient's condition is stable and appropriate for discharge from the emergency department. The patient will pursue further outpatient evaluation with the primary care physician or other designated or consulting physician as outlined in the disch arge instructions. The patient and/or caregivers are agreeable to this plan of care and follow-up instructions have been explained in detail. The patient and/or caregivers have received these instruction. The patient/and or caregivers are aware that any significant change in condition or worsening of symptoms should prompt an immediate return to this or the closest emergency department or call 911.
[2020-06-15 18:17] LABS: Absolute Neutrophil Ct (ANC) 6.54 (1.4-6.9); BASOPHIL % 0.2 % (0.0-0.4); Basophil (Absolute #) 0.02 (0-0.4); Eosinophil (Absolute #) 0.09 (0-0.5); Hematocrit 48.6 % (35-47); Lymphocyte (Absolute #) 2.19 (1.0-4.6); Lymphocytes % 23.3 % (24.0-44.0); Mean Cell Volume 100.2 fl (78-100); Mean Corpuscular Hemoglobin 30.9 pg (26-32); Mean Corpuscular Hgb Concent. 30.9 g/dl (32-36); Mean Platelet Volume 8.2 fl (7.5-11.0); Monocyte (Absolute #) 0.56 (0.0-1.3); Neutrophil % 69.5 % (36.0-66.0); Platelet Count 206 K/mm3 (150-450); Red Blood Count 4.85 M/mm3 (4.1-5.4); White Blood Count 9.4 K/mm3 (4.0-10.5)
[2020-06-15 18:39] LABS: ALBUMIN 4.1 g/dL (3.5-5.0); ALKALINE PHOSPHATASE 83 U/L (38-126); BLOOD UREA NITROGEN 15 mg/dL (7-17); Calcium 9.8 mg/dL (8.4-10.2); Carbon Dioxide 33 mmol/L (22-30); Creatinine 1 0.63 mg/dL (0.52-1.04); EST GLOMERULAR FILTRATION RATE > 60.0 ML/MIN; Glucose 116 mg/dL (74-106); MAGNESIUM 1.9 mg/dL (1.6-2.3); SGOT/AST 33 U/L (14-36); SGPT/ALT 25 U/L (0-35); SODIUM 135 mmol/L (137-145); Total Protein 7.2 g/dL (6.3-8.2)
[2020-06-15 18:52] LABS: CHLORIDE 99 mmol/L (98-107); Potassium 4.9 mmol/L (3.5-5.1)
[2020-06-15 18:54] LABS: ANION GAP 7.9 MEQ/L (5-15)
[2020-06-15 20:34] LABS: Appearance CLEAR (CLEAR); Bacteria NONE SEEN /HPF (NEGATIVE); Bilirubin NEGATIVE (NEGATIVE); Blood NEGATIVE Ery/ul (0-5); Epithelial Cells RARE /HPF (FEW); Glucose NEGATIVE (NEGATIVE); Hyaline Casts 0-2 /LPF (0-2); Ketones NEGATIVE (NEGATIVE); Leukocyte Esterase NEGATIVE (NEGATIVE); Mucus SLIGHT /HPF (NEGATIVE); Nitrite NEGATIVE (NEGATIVE); Protein,Urine Dip NEGATIVE (Negative); Specific Gravity 1.017 (1.005-1.025); Urobilinogen NEGATIVE mg/dL (0-1); WBC 0-2 /HPF (0-5)
[2020-06-15 21:05] VITALS: BP 134/73; PULSE 67
[2020-06-15 21:24] VITALS: O2SAT 95
--- NOTE | 2020-06-16 08:44 | XRAY ---
Indication: Cough. Comparison: None Portable apical lordotic chest hyperinflated and clear. Heart and mediastinal structures within normal limits. Bony thorax intact. Impression: Nonacute hyperinflated chest.
== END 2020-06-15 21:29 | disposition home or self-care (01) ==
LOC: ED 16:37
DX: R51.9 Headache, unspecified (principal); R05 Cough; R61 Generalized hyperhidrosis; E78.5 Hyperlipidemia, unspecified; E11.9 Type 2 diabetes mellitus without complications; I10 Essential (primary) hypertension; I49.9 Cardiac arrhythmia, unspecified; F17.210 Nicotine dependence, cigarettes, uncomplicated; Z79.899 Other long term (current) drug therapy; Z51.89 Encounter for other specified aftercare
CPT/HCPCS: 36000; 36415; 71045; 80053; 81001; 83735; 84484; 85025; 93005; 93041; 94760; 99284; A9270-GY

== ENCOUNTER 2020-07-14 09:23 | Day surgery (SDC) | payer MEDICARE ==
[2012-03-02 23:16] VITALS: BP 140/80
[2020-07-14] MEDS ORDERED: Depo-Medrol 40 MG/ML IM ONE (09:24)
[2020-07-14] MEDS ORDERED: Xylocaine 1% Vial 30 ML PF IJ ONE (09:24)
[2020-07-14] MEDS ORDERED: BUPIVACAINE 0.5% VIAL IJ ONE (09:24)
[2020-07-14] MEDS ORDERED: DIPRIVAN 200 MG/20 ML IV ONE (11:10)
[2020-07-14] MEDS ORDERED: Ketamine HCl 50 MG/ML ONE (11:10)
--- NOTE | 2020-07-14 14:14 | XRAY ---
Indication: Left L3-S1 RFA. Intraoperative fluoroscopy provided for 46 seconds. 3 digital spot image submitted for interpretation demonstrates posterior needle tips projecting over the expected left L3-S1 nerve roots. Correlate with intraoperative findings/report.
--- NOTE | 2020-07-14 14:18 | XRAY ---
46 seconds of fluoroscopy was used in surgery for a left L3-L4, L4-L5, and L5-S1 RFA.
[2020-07-14] MEDS ORDERED: Lactated Ringers 1,000 ML IV ONE (15:13)
== END 2020-07-14 12:17 | disposition home or self-care (01) ==
LOC: SDC-PAIN 09:23
PROVIDERS: ATTEND Psychiatry & Neurology Pain Medicine
DX: M47.816 Spondylosis without myelopathy or radiculopathy, lumbar region (principal); E11.9 Type 2 diabetes mellitus without complications; E78.5 Hyperlipidemia, unspecified; J44.9 Chronic obstructive pulmonary disease, unspecified; K21.9 Gastro-esophageal reflux disease without esophagitis; I48.92 Unspecified atrial flutter; F31.9 Bipolar disorder, unspecified; Z79.899 Other long term (current) drug therapy
CPT/HCPCS: 64635; 64636; 72100; 77002; 82947; J1030; J2001; J2704

== ENCOUNTER 2020-08-04 09:55 | Day surgery (SDC) | payer MEDICARE ==
[2012-03-02 23:16] VITALS: BP 140/80
[2020-08-04] MEDS ORDERED: Depo-Medrol 40 MG/ML IM ONE (09:56)
[2020-08-04] MEDS ORDERED: BUPIVACAINE 0.5% VIAL IJ ONE (09:56)
[2020-08-04] MEDS ORDERED: Xylocaine 1% Vial 30 ML PF IJ ONE (09:56)
[2020-08-04] MEDS ORDERED: DIPRIVAN 200 MG/20 ML IV ONE (11:20)
--- NOTE | 2020-08-04 12:56 | XRAY ---
Indication: Right L3-S1 RFA. Intraoperative fluoroscopy provided for 30 seconds. 3 digital spot images submitted for interpretation demonstrates posterior needle tips projecting over the expected right L3-S1 nerve roots. Correlate with intraoperative findings/report.
--- NOTE | 2020-08-04 12:59 | XRAY ---
30 seconds fluoroscopy time in surgery for right L3-S1 RFA.
[2020-08-04] MEDS ORDERED: Lactated Ringers 1,000 ML IV ONE (16:11)
== END 2020-08-04 11:57 | disposition home or self-care (01) ==
LOC: SDC-PAIN 09:55
PROVIDERS: ATTEND Psychiatry & Neurology Pain Medicine
DX: M47.816 Spondylosis without myelopathy or radiculopathy, lumbar region (principal); E11.9 Type 2 diabetes mellitus without complications; E78.5 Hyperlipidemia, unspecified; J44.9 Chronic obstructive pulmonary disease, unspecified; F31.9 Bipolar disorder, unspecified; F41.9 Anxiety disorder, unspecified; Z79.899 Other long term (current) drug therapy; I48.92 Unspecified atrial flutter
CPT/HCPCS: 64635; 64636; 72100; 77002; 82947; J1030; J2001; J2704

== ENCOUNTER 2020-09-15 07:33 | Day surgery (SDC) | payer MEDICARE ==
[2012-03-02 23:16] VITALS: BP 140/80
[2020-09-15] MEDS ORDERED: BUPIVACAINE 0.5% VIAL IJ ONE (07:34)
[2020-09-15] MEDS ORDERED: Depo-Medrol 40 MG/ML IM ONE (07:34)
[2020-09-15] MEDS ORDERED: DIPRIVAN 200 MG/20 ML IV ONE (09:12)
--- NOTE | 2020-09-15 10:45 | XRAY ---
Indication: Bilateral SI joint injection. Intraoperative fluoroscopy provided for 24 seconds. 4 digital spot images submitted for interpretation demonstrates posterior needle tip projecting over the inferior left and right SI joint. Correlate with intraoperative findings/report.
--- NOTE | 2020-09-15 10:58 | XRAY ---
24 seconds fluoroscopy time in surgery for bilateral injections of the SI joints.
[2020-09-15] MEDS ORDERED: Lactated Ringers 1,000 ML IV ONE (16:17)
== END 2020-09-15 09:45 | disposition home or self-care (01) ==
LOC: SDC-PAIN 07:33
PROVIDERS: ATTEND Psychiatry & Neurology Pain Medicine
DX: M46.1 Sacroiliitis, not elsewhere classified (principal); E78.5 Hyperlipidemia, unspecified; E11.9 Type 2 diabetes mellitus without complications; J44.9 Chronic obstructive pulmonary disease, unspecified; F31.9 Bipolar disorder, unspecified; I48.92 Unspecified atrial flutter; K21.9 Gastro-esophageal reflux disease without esophagitis; F41.9 Anxiety disorder, unspecified; H40.9 Unspecified glaucoma; Z79.899 Other long term (current) drug therapy
CPT/HCPCS: 27096; 72202; 77002; 82947; G0260; J1030; J2704

== ENCOUNTER 2020-12-11 19:30 | Emergency (ER) | payer MEDICARE ==
[2020-12-11] MEDS ORDERED: XYLOCAINE 1% HCL 20 ML MDV IJ ONE (19:31)
--- NOTE | 2020-12-11 20:00 | ERPHSYRPT ---
- History of Present Illness Time Seen by Provider: 12/11/20 20:00 Source: patient Exam Limitations: no limitations Physician History: This is a 60-year-old white female patient of nurse practitioner Carolee who has been given 2 rounds of antibiotics of Augmentin in the last approximately 2 weeks. She was on 1 dose of Augmentin and completed that and she is now on second round of Augmentin but higher strength and has been on this for 2 days. She has persistent left ear pain. Patient is on hydrocodone for chronic pain issues. She has not seen an research soil scientist. She is here because there is persistent pain in her left ear despite the antibiotic treatment that she is on. Timing/Duration: gradual onset Severity: moderate ENT Location: ear (L) Prearrival Treatment: over the counter meds, prescription meds Associated Symptoms: ear pain (L) Allergies/Adverse Reactions: aripiprazole [From Abilify] Allergy (Severe, Verified 12/11/20 19:41) Lightheadedness cyclobenzaprine HCl [From Flexeril] Allergy (Severe, Verified 12/11/20 19:41) Lightheadedness Home Medications: Bupropion HCl [Wellbutrin] 150 mg PO DAILY 09/06/16 [History] Meclizine HCl 25 mg [Antivert 25 mg] 25 mg PO DAILY 09/06/16 [History] Omeprazole 20 MG [Prilosec 20 mg] 1 tab PO DAILY 09/06/16 [History] Atorvastatin Calcium [Lipitor] 1 ea PO DAILY 12/19/19 [History] Hydrocodone/Acetaminophen [Hydrocodone-Acetamin 7.5-325] 1 ea PO TID 12/19/19 [History] Metformin HCl 500 mg [Glucophage 500 MG] 1 ea DAILY 12/19/19 [History] Quetiapine Fumarate 200 mg PO HS 12/19/19 [History] Docusate Sodium [Colace] 100 mg PO DAILY 03/30/20 [History] Escitalopram Oxalate [Lexapro] 20 mg PO DAILY 03/30/20 [History] Nebivolol HCl 5 MG [Bystolic 5 MG] 5 mg PO DAILY 03/30/20 [History] Quetiapine Fumarate 25 mg [Seroquel 25 MG] 25 mg PO DAILY 03/30/20 [History] Albuterol Sulfate [Albuterol Sulfate Hfa] 18 gm IH Q4-6HPRN PRN 12/11/20 [History] Amoxicillin [Amoxil] 875 mg PO BID 12/11/20 [History] Naloxone HCl [Narcan] 1 puff IH PRN 12/11/20 [History] Nitroglycerin [Nitrostat] 0.3 mg SL 12/11/20 [History] Prazosin HCl 3 mg PO HS 12/11/20 [History] Hx Tetanus, Diphtheria Vaccination/Date Given: Yes Hx Influenza Vaccination/Date Given: No Hx Pneumococcal Vaccination/Date Given: No Travel Risk - International Travel Have you traveled outside of the country in past 3 weeks: No - Coronavirus Screening Are you exhibiting any of the following symptoms?: No Close contact with a COVID-19 positive Pt in past 14-21 Days: No - Review of Systems Constitutional: No Symptoms Eyes: No Symptoms Ears, Nose, & Throat: Ear Pain (Left), Ear Discharge (Mild) Respiratory: No Symptoms Cardiac: No Symptoms Abdominal/Gastrointestinal: No Symptoms Genitourinary Symptoms: No Symptoms Musculoskeletal: No Symptoms Skin: No Symptoms Neurological: No Symptoms Psychological: No Symptoms Endocrine: No Symptoms Hematologic/Lymphatic: No Symptoms Immunological/Allergic: No Symptoms All Other Systems: Reviewed and Negative - Past Medical History Pertinent Past Medical History: Yes Neurological History: Other ENT History: Glaucoma Cardiac History: Arrhythmia, High Cholesterol, Hypertension Respiratory History: COPD Endocrine Medical History: Diabetes Type II Musculoskeletal History: Arthritis, Other GI Medical History: GERD History: No Pertinent History Psycho-Social History: Anxiety Female Reproductive Disorders: No Pertinent History Other Medical History: FREQUENT PVCs vertigo history of abnormal vag bleeding which she is being treated for - Past Surgical History Past Surgical History: Yes Neuro Surgical History: No Pertinent History Cardiac: No Pertinent History Respiratory: No Pertinent History Gastrointestinal: Cholecystectomy Genitourinary: No Pertinent History Musculoskeletal: Orthopedic Surgery Female Surgical History: Tubal Ligation, Other Other Surgical History: l foot,leep procedure. laser eye surgery - Social History Smoking Status: Current every day smoker How long have you smoked: 30 Exposure to second hand smoke: Yes Drug Use: none Patient Lives Alone: No - Nursing Vital Signs Nursing Vital Signs: Initial Vital Signs Temperature 98.8 F 12/11/20 19:49 Pulse Rate 81 12/11/20 19:49 Respiratory Rate 22 12/11/20 19:49 Blood Pressure 144/86 12/11/20 19:49 O2 Sat by Pulse Oximetry 93 L 12/11/20 19:49 Pain Scale Pain Intensity 9 - Physical Exam General Appearance: no apparent distress, alert, anxiety Eye Exam: bilateral eye: normal inspection, PERRL, EOMI Ear Exam: right ear: canal normal, other (Tympanic membrane obscured by cerumen), left ear: discharge, tenderness, bilateral ear: auricle normal Nasal Exam: normal inspection Throat Exam: normal Neck Exam: normal inspection, non-tender, supple, full range of motion, trachea midline Cardiovascular/Respiratory Exam: chest non-tender, no respiratory distress Abdominal Exam: non-tender Neurologic Exam: alert Skin Exam: normal color, warm, dry SpO2 Interpretation: normal O2 Delivery: Room Air - Course Nursing assessment & vital signs reviewed: Yes Ordered Tests: Medication Summary Discontinued Medications Generic Name Dose Route Start Last Admin Trade Name Jose PRN Reason Stop Dose Admin Ceftriaxone Sodium 1,000 mg 12/11/20 21:09 Rocephin 1000 Mg Inj IM 12/11/20 21:10 STAT ONE Ceftriaxone Sodium Confirm 12/11/20 21:17 Rocephin 1000 Mg Inj Administered 12/11/20 21:18 Dose 1,000 mg .ROUTE .STK-MED ONE Methylprednisolone Sodium 0 mg 12/11/20 21:09 Succinate 125 mg/ Sterile IM 12/11/20 21:10 Water 2 ml STAT ONE Methylprednisolone Sodium Succinate Confirm 12/11/20 21:17 Solu-Medrol Administered 12/11/20 21:18 Dose 125 mg .ROUTE .STK-MED ONE Sterile Water Confirm 12/11/20 21:17 Sterile H2o 10 Ml Administered 12/11/20 21:18 Dose 10 ml IJ .STK-MED ONE - Progress Progress: unchanged, pain not gone completely Progress Note: 12/11/20 21:29 Medical decision making: This patient has been on 2 rounds of antibiotics of Augmentin. What was changed and the second round was the same antibiotics but stronger medication dosing. The patient does not want a new antibiotic at this time. She is only been taking the second round for 2 days and wants to see if this is going to clear up her left ear infection. We will provide her with names of a couple different research soil scientist that she should contact. I will be adding steroid to her pain regimen Counseled pt/family regarding: diagnosis, need for follow-up - Departure Departure Disposition: Home Clinical Impression: Left otitis media Condition: Stable Critical Care Time: No Additional Instructions: Take your antibiotics as prescribed. Fill the your steroid prescription. Monitor your blood glucose closely while taking steroids. Call research soil scientist on 12/13/2020 for further management. Prescriptions: Prednisone 10 mg [Deltasone 10 mg] 10 mg PO BID #10 tablet
[2020-12-11] MEDS ORDERED: Rocephin 1000 MG INJ IM ONE (21:09)
[2020-12-11] MEDS ORDERED: solu-MEDROL 125 MG, Sterile H2O 10 ml 2 ML IM ONE ×2 (21:09)
[2020-12-11] MEDS ORDERED: solu-MEDROL ONE (21:17)
[2020-12-11] MEDS ORDERED: Rocephin 1000 MG INJ ONE (21:17)
[2020-12-11] MEDS ORDERED: Sterile H2O 10 ml IJ ONE (21:17)
[2020-12-11 21:43] VITALS: BP 144/86; PULSE 83; O2SAT 94
== END 2020-12-11 21:41 | disposition home or self-care (01) ==
LOC: ED 19:30
DX: H66.92 Otitis media, unspecified, left ear (principal)
CPT/HCPCS: 96372; 99284; J0696; J2930

== ENCOUNTER 2021-02-09 16:16 | Emergency (ER) | payer MEDICARE ==
[2021-02-09] MEDS ORDERED: TORAdol 30 mg Injection IM ONE (16:22)
[2021-02-09] MEDS ORDERED: TORAdol 30 mg Injection ONE (16:48)
--- NOTE | 2021-02-09 16:51 | XRAY ---
Indication: Pain and swelling following fall. Comparison: None 3 view right ankle demonstrates mildly displaced distal fibula shaft and posterior malleolus fractures with laterally subluxed talus and soft tissue swelling. Incidental small posterior/plantar heel spurs.
--- NOTE | 2021-02-09 16:51 | XRAY ---
Indication: Pain and swelling following fall. Comparison: None 2 view right lower leg demonstrates mildly displaced distal fibula shaft and posterior malleolus fractures with laterally subluxed talus and soft tissue swelling. Incidental small heel spurs. No other bony, articular, or soft tissue abnormalities.
--- NOTE | 2021-02-09 17:01 | ERPHSYRPT ---
- History of Present Illness Time Seen by Provider: 02/09/21 16:30 Source: patient Exam Limitations: no limitations Patient Subjective Stated Complaint: PT states "I was going to the bathroom in the childs and I slid into a hole and my ankle snapped." Triage Nursing Assessment: PT presented alert and oriented X 3, skin pwd Pt right ankle deformity noted to ankle Physician History: Patient is a 61-year-old female presents to our ED with pain to her right ankle. Patient states she was walking in the childs looking for a place to use the bathroom when she stepped into a hole. Patient fell and heard a pop at her right ankle. Patient arrived via EMS. Patient complains of swelling and pain to the right ankle. No other injuries reported. No knee pain. No hip pain no back pain. No BHT or LOC. The fall was mechanical. The fall was not associated with any neuro cardiovascular symptomology. No chest pain or shortness of breath. No numbness tingling or weakness. Patient voices no other complaints concerns at this time. Method of Injury: fell, twisted Occurred: just prior to arrival Quality: constant Severity of Pain-Max: moderate Severity of Pain-Current: mild Lower Extremities Pain: ankle: right Modifying Factors: Improves With: movement Associated Symptoms: none Allergies/Adverse Reactions: aripiprazole [From Abilify] Allergy (Severe, Verified 12/11/20 19:41) Lightheadedness cyclobenzaprine HCl [From Flexeril] Allergy (Severe, Verified 12/11/20 19:41) Lightheadedness Home Medications: Bupropion HCl [Wellbutrin] 150 mg PO DAILY 09/06/16 [History] Meclizine HCl 25 mg [Antivert 25 mg] 25 mg PO DAILY 09/06/16 [History] Omeprazole 20 MG [Prilosec 20 mg] 1 tab PO DAILY 09/06/16 [History] Atorvastatin Calcium [Lipitor] 1 ea PO DAILY 12/19/19 [History] Hydrocodone/Acetaminophen [Hydrocodone-Acetamin 7.5-325] 1 ea PO TID 12/19/19 [History] Metformin HCl 500 mg [Glucophage 500 MG] 1 ea DAILY 12/19/19 [History] Quetiapine Fumarate 200 mg PO HS 12/19/19 [History] Docusate Sodium [Colace] 100 mg PO DAILY 03/30/20 [History] Escitalopram Oxalate [Lexapro] 20 mg PO DAILY 03/30/20 [History] Nebivolol HCl 5 MG [Bystolic 5 MG] 5 mg PO DAILY 03/30/20 [History] Quetiapine Fumarate 25 mg [Seroquel 25 MG] 25 mg PO DAILY 03/30/20 [History] Albuterol Sulfate [Albuterol Sulfate Hfa] 18 gm IH Q4-6HPRN PRN 12/11/20 [History] Amoxicillin [Amoxil] 875 mg PO BID 12/11/20 [History] Naloxone HCl [Narcan] 1 puff IH PRN 12/11/20 [History] Nitroglycerin [Nitrostat] 0.3 mg SL 12/11/20 [History] Prazosin HCl 3 mg PO HS 12/11/20 [History] Hx Tetanus, Diphtheria Vaccination/Date Given: Yes Hx Influenza Vaccination/Date Given: No Hx Pneumococcal Vaccination/Date Given: No Immunizations Up to Date: Yes Travel Risk - International Travel Have you traveled outside of the country in past 3 weeks: No - Coronavirus Screening Are you exhibiting any of the following symptoms?: No Close contact with a COVID-19 positive Pt in past 14-21 Days: No - Vaccine Status Have you recieved a Covid-19 vaccination: No - Review of Systems Constitutional: No Symptoms, No Fever, No Chills Eyes: No Symptoms Ears, Nose, & Throat: No Symptoms Respiratory: No Symptoms, No Cough, No Dyspnea Cardiac: No Symptoms, No Chest Pain, No Edema, No Syncope Abdominal/Gastrointestinal: No Symptoms, No Abdominal Pain, No Nausea, No Vomiting, No Diarrhea Genitourinary Symptoms: No Symptoms, No Dysuria Musculoskeletal: No Symptoms, No Back Pain, No Neck Pain Skin: No Symptoms, No Rash Neurological: No Symptoms, No Dizziness, No Focal Weakness, No Sensory Changes Psychological: No Symptoms Endocrine: No Symptoms Hematologic/Lymphatic: No Symptoms Immunological/Allergic: No Symptoms All Other Systems: Reviewed and Negative - Past Medical History Pertinent Past Medical History: Yes Neurological History: Other ENT History: Glaucoma Cardiac History: Arrhythmia, High Cholesterol, Hypertension Respiratory History: COPD Endocrine Medical History: Diabetes Type II Musculoskeletal History: Arthritis, Other GI Medical History: GERD History: No Pertinent History Psycho-Social History: Anxiety Female Reproductive Disorders: No Pertinent History Other Medical History: FREQUENT PVCs vertigo history of abnormal vag bleeding which she is being treated for - Past Surgical History Past Surgical History: Yes Neuro Surgical History: No Pertinent History Cardiac: No Pertinent History Respiratory: No Pertinent History Gastrointestinal: Cholecystectomy Genitourinary: No Pertinent History Musculoskeletal: Orthopedic Surgery Female Surgical History: Tubal Ligation, Other Other Surgical History: l foot,leep procedure. laser eye surgery - Social History Smoking Status: Current every day smoker How long have you smoked: 30 Exposure to second hand smoke: Yes Drug Use: none Patient Lives Alone: No - Nursing Vital Signs Nursing Vital Signs: Initial Vital Signs Temperature 97.5 F 02/09/21 16:18 Pulse Rate 77 02/09/21 16:18 Respiratory Rate 22 02/09/21 16:18 Blood Pressure 122/68 02/09/21 16:18 O2 Sat by Pulse Oximetry 96 02/09/21 16:18 Pain Scale Pain Intensity 6 - Physical Exam General Appearance: no apparent distress, alert Eyes, Ears, Nose, Throat Exam: normal ENT inspection, TMs normal, pharynx normal, moist mucous membranes Neck Exam: normal inspection, non-tender, supple, full range of motion Cardiovascular/Respiratory Exam: chest non-tender, normal breath sounds, regular rate/rhythm, no respiratory distress Gastrointestinal/Abdominal Exam: non-tender, guarding Back Exam: normal inspection, No vertebral tenderness Hips Exam: bilateral: non-tender, normal inspection, normal range of motion, no evidence of injury Legs Exam: bilateral leg: non-tender, normal inspection, normal range of motion, no evidence of injury Knees Exam: bilateral knee: non-tender, normal inspection, normal range of motion, no evidence of injury Ankle Exam: right ankle: pain, soft tissue tenderness, swelling, other (Right ankle swollen and slightly deformed. PT DP pulse palpable. Cap refill less than 2 seconds. Sensation intact.), left ankle: non-tender, normal inspection, normal range of motion, no evidence of injury Foot Exam: bilateral foot: non-tender, normal inspection, normal range of motion, no evidence of injury Neuro/Tendon Exam: normal sensation, normal motor functions Mental Status Exam: alert, oriented x 3, cooperative Skin Exam: normal color, warm, dry SpO2 Interpretation: normal SpO2: 96 O2 Delivery: Room Air Procedures - Joint Reduction Time of Procedure: 18:07 Timeout: Performed Joint Reduction Site: Right, ankle Conscious Sedation: No Reduction Attempts: 1 Pre-Procedure Neurovascular Exam: neurovascular intact Post Procedure Neurovascular Exam: neurovascular intact Post Joint Reduction Film: joint reduced Progress: Patient neurovascular tact post procedure. Analgesia achieved using hematoma block. Hematoma block was performed: The skin was prepped using Betadine and alcohol. A 25-gauge needle was used to anesthetize the overlying skin. A 18-gauge needle was used to perform the block. A total of 8 cc 2% lidocaine was used to perform the block. 4 cc on the medial and forces on the lateral side from an anterior approach. Patient tolerated procedure well. We achieved excellent anesthesia. Patient's foot was suspended the joint was reduced and splinted. Patient tolerated procedure well. Patient neurovascular intact post procedure. - Course Nursing assessment & vital signs reviewed: Yes - Radiology Exams Ankle X-ray Interpretation: Interpreted by me (Bimalleolar ankle fracture involving the lateral and the posterior malleolus. There is a anterolateral dislocation of the tibia on the talus. Heel spur. No soft tissue abnormalities.) Lower Leg X-ray Interpretation: Interpreted by me (Lateral and posterior malleolus fracture with anterolateral subluxation, heel spur. No soft tissue abnormalities. Tib-fib otherwise intact.) Other X-ray Interpretation: Interpreted by me (Postreduction view of right ankle shows improved alignment of ankle subluxation on the lateral and mortise view.) Ordered Tests: Active Orders 24 hr Category Date Time Status ANKLE (3 VIEWS) Stat Exams 02/09/21 16:21 Completed ANKLE (3 VIEWS) Stat Exams 02/09/21 17:37 Taken LOWER LEG Stat Exams 02/09/21 16:22 Completed Medication Summary Discontinued Medications Generic Name Dose Route Start Last Admin Trade Name Freq PRN Reason Stop Dose Admin Ketorolac Tromethamine 30 mg 02/09/21 16:22 02/09/21 16:50 Ketorolac Tromethamine 30 Mg/Ml Inj IM 02/09/21 16:23 Not Given STAT ONE Ketorolac Tromethamine Confirm 02/09/21 16:48 Ketorolac Tromethamine 30 Mg/Ml Inj Administered 02/09/21 16:49 Dose 30 mg .ROUTE .STK-MED ONE Lidocaine HCl 5 ml 02/09/21 17:05 02/09/21 17:09 Lidocaine Hcl 2% 20 Ml Mdv IJ 02/09/21 17:06 5 ml STAT ONE Administration Lidocaine HCl Confirm 02/09/21 17:08 Lidocaine Hcl 2% 20 Ml Mdv Administered 02/09/21 17:09 Dose 5 ml .ROUTE .STK-MED ONE - Progress Progress: improved Progress Note: 61-year-old female status post mechanical fall with subsequent right ankle fracture subluxation. Ankle successfully reduced. Ankle splinted. Patient neurovascular intact post procedure. Patient was provided a referral to podiatry who performs ankle surgery. Patient will follow up tomorrow morning for reevaluation. Plan of care discussed with patient. She agrees to follow-up tomorrow morning for reevaluation. Patient voiced no other complaints concerns at this time. Portions of this note were created with voice recognition technology. There may be grammatical, spelling, punctuation or sound alike errors 02/09/21 18:11 Counseled pt/family regarding: diagnosis, need for follow-up, rad results - Departure Departure Disposition: Home Clinical Impression: Bimalleolar ankle fracture, Subluxation of ankle joint Condition: Stable Critical Care Time: No Referrals: SHARATH SIFUENTES [employer]INEER[employer]OLOGIST [Primary Care Provider] - Additional Instructions: Discharge/Care Plan MARTHAJOYCE LIM was seen on 02/09/21 in the Emergency Room. The patient was counseled regarding Diagnosis,Lab results, Imaging studies, need for follow up and when to return to the Emergency Room. Prescriptions given: Discharge Note I have spoken with the patient and/or caregivers. I have explained the patient's condition, diagnosis and treatment plan based on the information available to me at this time. I have answered the patient's and/or caregiver's questions and addressed any concerns. The patient and/or caregivers have as good understanding of the patient's diagnosis, condition and treatment plan as can be expected at this point. The vital signs have been stable. The patient's condition is stable and appropriate for discharge from the emergency department. The patient will pursue further outpatient evaluation with the primary care physician or other designated or consulting physician as outlined in the discharge instructions. The patient and/or caregivers are agreeable to this plan of care and follow-up instructions have been explained in detail. The patient and/or caregivers have received these instruction. The patient/and or caregivers are aware that any significant change in condition or worsening of symptoms should prompt an immediate return to this or the closest emergency department or call 911. Outpatient Orders: Ortho Referral Time Frame: 1 Day, Facility: [facility], Location: ORTHO CLINIC
[2021-02-09] MEDS ORDERED: XYLOCAINE 2% HCL 20 ML MDV IJ ONE (17:05)
[2021-02-09] MEDS ORDERED: XYLOCAINE 2% HCL 20 ML MDV ONE (17:08)
[2021-02-09 18:43] VITALS: BP 134/86; PULSE 96; O2SAT 97
--- NOTE | 2021-02-10 08:55 | XRAY ---
Indication: Post reduction. Comparison: Taken earlier today. 3 view right ankle demonstrates new posterior splint material with stable minimally displaced posterior malleolus fracture and incidental heel spurs. Distal fibula fracture and laterally subluxed talus mildly improved in apposition/alignment. Talus remains mildly subluxed laterally. No other bony, articular, or soft tissue abnormalities.
== END 2021-02-09 18:44 | disposition home or self-care (01) ==
LOC: ED 16:16
DX: S82.841A Displaced bimalleolar fracture of right lower leg, initial encounter for closed fracture (principal); W17.2XXA Fall into hole, initial encounter; Y93.89 Activity, other specified; Y92.89 Other specified places as the place of occurrence of the external cause; X50.1XXA Overexertion from prolonged static or awkward postures, initial encounter; I10 Essential (primary) hypertension; E11.9 Type 2 diabetes mellitus without complications; Z79.899 Other long term (current) drug therapy; E78.00 Pure hypercholesterolemia, unspecified; J44.9 Chronic obstructive pulmonary disease, unspecified
CPT/HCPCS: 73590; 73610; 96372; 99284; J1885

== ENCOUNTER 2021-02-11 08:22 | Observation (INO) | payer MEDICARE ==
[~2021-02-11 08:22] MED LIST: BUPIVACAINE 0.5% VIAL IJ ONE; XYLOCAINE 1% HCL 20 ML MDV ONE
[2021-02-11] MEDS ORDERED: Xopenex 1.25 MG/0.5 ML UD NEBULE IH ONE (09:12)
[2021-02-11] MEDS ORDERED: Sodium Chloride 3 ML UD NEBULES IH ONE (09:13)
[2021-02-11] MEDS ORDERED: Lactated Ringers 1,000 ML IV ONE (09:51)
[2021-02-11] MEDS: Lactated Ringers 1,000 ML IV SCH ×2 (09:54→17:18)
[2021-02-11] MEDS ORDERED: CEFAZOLIN 2 GM-D5W BAG** 2 GM/50 ML ML IV SCH (10:00)
[2021-02-11] MEDS ORDERED: CEFAZOLIN 2 GM-D5W BAG** 2 GM/50 ML ML IV ONE (10:04)
[2021-02-11 10:28] LABS: Hematocrit 47.9 % (35-47); Hemoglobin 15.4 gm/dl (12.0-16.0); Mean Cell Volume 99.8 fl (78-100); Mean Corpuscular Hemoglobin 32.1 pg (26-32); Mean Corpuscular Hgb Concent. 32.2 g/dl (32-36); Mean Platelet Volume 8.3 fl (7.5-11.0); Platelet Count 202 K/mm3 (150-450); Red Cell Distribution Width 14.6 % (11.5-14.0); White Blood Count 9.5 K/mm3 (4.0-10.5)
[2021-02-11 10:42] LABS: ANION GAP 11.3 MEQ/L (5-15); BLOOD UREA NITROGEN 15 mg/dL (7-17); CHLORIDE 100 mmol/L (98-107); Calcium 9.2 mg/dL (8.4-10.2); Carbon Dioxide 33 mmol/L (22-30); Creatinine 1 0.54 mg/dL (0.52-1.04); EST GLOMERULAR FILTRATION RATE > 60.0 ML/MIN; Glucose 115 mg/dL (74-106); Potassium 4.7 mmol/L (3.5-5.1); SODIUM 140 mmol/L (137-145)
[2021-02-11] MEDS ORDERED: Versed 2 MG/2 ML Injection ONE (11:20)
[2021-02-11] MEDS ORDERED: SUBLIMAZE 100 MCG/2 ML ONE (11:20)
[2021-02-11] MEDS ORDERED: DIPRIVAN 200 MG/20 ML IV ONE ×6 (11:20→15:57)
[2021-02-11] MEDS ORDERED: Ketamine HCl 50 MG/ML ONE (11:22)
[2021-02-11] MEDS ORDERED: Zofran 4 MG/2 ML VIAL ONE (11:22)
--- NOTE | 2021-02-11 12:17 | XRAY ---
Indication: Preop testing. Comparison: June 20, 2020. Portable chest again hyperinflated with new right mid to lower lung hazy interstitial alveolar opacity, possibly pneumonia in the right clinical setting. Remaining heart and lungs unremarkable. Bony thorax intact.
[2021-02-11] MEDS ORDERED: EPINEPHRINE 1MG/ML AMP ONE (12:46)
[2021-02-11] MEDS ORDERED: Decadron 4 MG INJ ONE (15:25)
[2021-02-11] MEDS ORDERED: Naropin 0.5% 30 ML VIAL ONE (15:25)
[2021-02-11] MEDS ORDERED: TORAdol 30 mg Injection ONE (15:57)
[2021-02-11] MEDS ORDERED: HYDROCODONE-ACETAMIN 10-325 MG PO PRN (17:24)
[2021-02-11] MEDS ORDERED: MOTRIN 600 MG PO PRN (17:25)
[2021-02-11] MEDS ORDERED: NITROGLYCERIN 0.3 MG SL PRN (17:28)
[2021-02-11] MEDS ORDERED: Ventolin Hfa MDI IH PRN (17:28)
[2021-02-11] MEDS ORDERED: [UNRECOGNIZED DRUG - REMARK] IH PRN (17:28)
[2021-02-11] MEDS ORDERED: Nitrostat 0.4 MG Tablet SL PRN (17:35)
[2021-02-11] MEDS ORDERED: VENTOLIN COMMON CANISTER IH PRN (17:37)
[2021-02-11] MEDS: Wellbutrin XL 150 MG PO SCH (17:42)
[2021-02-11] MEDS: Protonix 40MG Tablet PO SCH (17:42)
[2021-02-11] MEDS: Lexapro 10 MG PO SCH (17:42)
[2021-02-11] MEDS: Glucophage 500 MG PO SCH (17:42)
[2021-02-11] MEDS: Bystolic 5 MG PO SCH (17:42)
[2021-02-11] MEDS: XARELTO 10 MG TABLET PO SCH (17:42)
[2021-02-11] MEDS: ANTIVERT 25 MG PO SCH (17:42)
[2021-02-11] MEDS: Zocor 10MG PO SCH (17:43)
[2021-02-11] MEDS ORDERED: MEDICATION INTERVENTION PO SCH (17:45)
[2021-02-11] MEDS ORDERED: MEDICATION INTERVENTION MC SCH (17:45)
[2021-02-11 20:50] LABS: Appearance CLEAR (CLEAR); Bilirubin NEGATIVE (NEGATIVE); Blood NEGATIVE Ery/ul (0-5); Epithelial Cells RARE /HPF (FEW); Glucose NEGATIVE (NEGATIVE); Ketones NEGATIVE (NEGATIVE); Leukocyte Esterase NEGATIVE (NEGATIVE); Mucus SLIGHT /HPF (NEGATIVE); Nitrite NEGATIVE (NEGATIVE); Protein,Urine Dip NEGATIVE (Negative); RBC 0-2 /HPF (0-2); Specific Gravity 1.019 (1.005-1.025); Urobilinogen NEGATIVE mg/dL (0-1); WBC 0-2 /HPF (0-5)
[2021-02-11] MEDS: Vibramycin 100 MG PO SCH (20:57)
[2021-02-11] MEDS: NON-FORMULARY ITEM PO SCH (20:57)
[2021-02-11] MEDS ORDERED: NON-FORMULARY ITEM (Cefdinir [Cefdinir] 300 MG Capsule) PO SCH (22:00)
[2021-02-11] MEDS ORDERED: NON-FORMULARY ITEM (Quetiapine Fumarate [Quetiapine Fumarate] 50 MG Tablet) PO SCH (22:00)
[2021-02-11] MEDS ORDERED: Seroquel 100 MG PO SCH (22:00)
[2021-02-11] MEDS ORDERED: NON-FORMULARY ITEM (Prazosin Hcl [Prazosin Hcl] 1 MG Capsule) PO SCH (22:00)
--- NOTE | 2021-02-11 23:02 | XRAY ---
Indication: Right ankle open reduction internal fixation. Intraoperative fluoroscopy provided for 3 minutes 48 seconds. 18 digital spot images submitted for interpretation ultimately demonstrates lateral fixation plate/screws fixating distal fibula shaft fracture and 2 screws traversing distal tibia/fibula. Fracture apposition/alignment appears anatomic. Correlate with intraoperative findings/report.
--- NOTE | 2021-02-12 07:57 | PCM.NOTE ---
Date and Time: 02/12/21748 Subjective Assessment: Patient seen at bedside this morning. Status post right ankle open reduction internal fixation with syndesmotic reduction and deltoid ligament repair postop day 1 date of surgery 02/11/2021. Resting comfortably. Admits to no pain. No complaints of calf pain. No shortness of breath. Physical Exam - Narrative Narrative Physical Exam: Podiatry Physical Exam Posterior splint with sugar tong overlying right lower extremity with no stri kethrough noted wiggles toes no pain on compression to the bilateral calfs. No subjective complaints of shortness of breath. Capillary refill time is less than 3 seconds OBJECTIVE DATA Vital Signs: Vital Signs - 24 hr Temp Pulse Resp BP Pulse Ox 02/12/21 04:00 97.6 F 85 16 116/61 97 02/12/21 00:00 18 02/11/21 23:07 97.1 F 88 18 111/59 93 L 02/11/21 20:50 98.1 F 85 20 167/73 94 L 02/11/21 20:00 17 02/11/21 19:50 97.9 F 90 17 113/68 96 02/11/21 18:50 97.7 F 97 H 16 107/60 91 L 02/11/21 18:20 97.1 F 85 18 120/71 92 L 02/11/21 17:44 78 20 92 L 02/11/21 17:24 97.6 F 91 H 18 150/76 91 L 02/11/21 09:47 97.6 F 91 H 18 150/76 91 L 02/11/21 09:42 97.6 F 91 H 18 150/76 91 L 02/11/21 09:23 87 18 88 L Pain Assessment - Last Documented Pain Intensity [right ankle] 4 Pain Intensity 0 Pain Scale Used 0-10 Pain Scale Intake and Output: Intake & Output 02/09/21 02/10/21 02/11/21 02/12/21 11:59 11:59 11:59 11:59 Intake Total 1587 Output Total 900 Balance 687 Weight 114.305 kg 114.305 kg Lab Results: Lab Results-Last 24 Hours 02/11/21 02/11/21 02/11/21 Range/Units 10:00 10:00 11:49 WBC 9.5 (4.0-10.5) K/mm3 RBC 4.80 (4.1-5.4) M/mm3 Hgb 15.4 (12.0-16.0) gm/dl Hct 47.9 H (35-47) % MCV 99.8 (78-100) fl MCH 32.1 H (26-32) pg MCHC 32.2 (32-36) g/dl RDW 14.6 H (11.5-14.0) % Plt Count 202 (150-450) K/mm3 MPV 8.3 (7.5-11.0) fl Sodium 140 (137-145) mmol/L Potassium 4.7 (3.5-5.1) mmol/L Chloride 100 (98-107) mmol/L Carbon Dioxide 33 H (22-30) mmol/L Anion Gap 11.3 (5-15) MEQ/L BUN 15 (7-17) mg/dL Creatinine 0.54 (0.52-1.04) mg/dL Estimated GFR > 60.0 ML/MIN Glucose 115 H (74-106) mg/dL Calcium 9.2 (8.4-10.2) mg/dL Urine Color (YELLOW) Urine Appearance (CLEAR) Urine pH (5-6) Ur Specific [place] (1.005-1.025) Urine Protein (Negative) Urine Ketones (NEGATIVE) Urine Blood (0-5) Edin/ul Urine Nitrite (NEGATIVE) Urine Bilirubin (NEGATIVE) Urine Urobilinogen (0-1) mg/dL Ur Leukocyte Esterase (NEGATIVE) Urine WBC (Auto) (0-5) /HPF Urine RBC (Auto) (0-2) /HPF U Epithel Cells (Auto) (FEW) /HPF Urine Mucus (Auto) (NEGATIVE) /HPF Urine Glucose (NEGATIVE) mg/dL SARS-CoV-2 (PCR) NEGATIVE (NEGATIVE) 02/11/21 Range/Units 13:30 WBC (4.0-10.5) K/mm3 RBC (4.1-5.4) M/mm3 Hgb (12.0-16.0) gm/dl Hct (35-47) % MCV (78-100) fl MCH (26-32) pg MCHC (32-36) g/dl RDW (11.5-14.0) % Plt Count (150-450) K/mm3 MPV (7.5-11.0) fl Sodium (137-145) mmol/L Potassium (3.5-5.1) mmol/L Chloride (98-107) mmol/L Carbon Dioxide (22-30) mmol/L Anion Gap (5-15) MEQ/L BUN (7-17) mg/dL Creatinine (0.52-1.04) mg/dL Estimated GFR ML/MIN Glucose (74-106) mg/dL Calcium (8.4-10.2) mg/dL Urine Color YELLOW (YELLOW) Urine Appearance CLEAR (CLEAR) Urine pH 5.0 (5-6) Ur Specific [place] 1.019 (1.005-1.025) Urine Protein NEGATIVE (Negative) Urine Ketones NEGATIVE (NEGATIVE) Urine Blood NEGATIVE (0-5) Edin/ul Urine Nitrite NEGATIVE (NEGATIVE) Urine Bilirubin NEGATIVE (NEGATIVE) Urine Urobilinogen NEGATIVE (0-1) mg/dL Ur Leukocyte Esterase NEGATIVE (NEGATIVE) Urine WBC (Auto) 0-2 (0-5) /HPF Urine RBC (Auto) 0-2 (0-2) /HPF U Epithel Cells (Auto) RARE (FEW) /HPF Urine Mucus (Auto) SLIGHT (NEGATIVE) /HPF Urine Glucose NEGATIVE (NEGATIVE) mg/dL SARS-CoV-2 (PCR) (NEGATIVE) Radiology Exams: Radiology Procedures Category Date Time Status ANKLE (3 VIEWS) Routine Exams 02/11/21 15:48 Completed CHEST 1 VIEW (PORTABLE) Stat Exams 02/11/21 11:55 Completed FLUOROSCOPY UP TO 1 HR Routine Exams 02/11/21 15:48 Taken Multi-Disciplinary Progress Notes: Multi-Disciplinary Progress Notes 02/11/21 13:04 Case Management Note by Doreen Serrano ORDER FOR KNEE SCOOTER FAXED TO [facility] AT THIS TIME Initialized on 02/11/21 13:04 - END OF NOTE 02/11/21 09:18 (created 02/11/21 11:28) Respiratory Note by Winter Davidson The patient's O2 sat on room air at rest is 88%. Checked patient's O2 sats with two different oximeters and O2 sat remains 88% on room air at rest. Initialized on 02/11/21 11:28 - END OF NOTE Assessment/Plan (1) COPD (chronic obstructive pulmonary disease) Current Visit: Yes Status: Acute (2) Pain in right ankle and joints of right foot Current Visit: Yes Status: Acute Code(s): M25.571 - PAIN IN RIGHT ANKLE AND JOINTS OF RIGHT FOOT (3) Tear of deltoid ligament of right ankle Current Visit: Yes Status: Acute Code(s): S93.421A - SPRAIN OF DELTOID LIGAMENT OF RIGHT ANKLE, INITIAL ENCOUNTER (4) Tobacco dependence due to cigarettes Current Visit: Yes Status: Acute Code(s): F17.210 - NICOTINE DEPENDENCE, CIGARETTES, UNCOMPLICATED (5) Fall with injury Current Visit: No Status: Acute Code(s): W19.XXXA - UNSPECIFIED FALL, INITIAL ENCOUNTER (6) Bimalleolar ankle fracture Current Visit: No Status: Acute Assessment & Plan: Patient examination evaluation. Patient is progressing without complication at this time and is resting comfort ably without pain status post bimalleolar ankle open reduction internal fixation with syndesmotic reduction and deltoid ligament repair postop day 1 date of surgery 02/11/2021. Patient is to remain nonweightbearing to the right lower extremity with the assistance of knee scooter Dressings to remain clean dry and intact to the right lower extremity Postoperative pain control prescribed [place] 10 every 6 hours for breakthrough pain alternate with ibuprofen 600 mg every 6 hours for first 2 weeks Postoperative DVT prophylaxis Xarelto 10 mg p.o. daily until fully weightbearing Postoperative infection prophylaxis doxycycline 100 mg twice daily for 10 days Follow-up 1 week() in office for postop visit #1 Patient okay from my standpoint to discharge home once patient has obtained means for home oxygen therapy secondary to her COPD. Advised smoking cessation. Please provide patient education. Will follow until dc Code(s): S82.843A - DISPLACED BIMALLEOLAR FRACTURE OF UNSP LOWER LEG, INIT
--- NOTE | 2021-02-12 08:14 | XRAY ---
3 minutes 48 seconds of fluoroscopy was used in surgery for a right ankle ORIF deltoid ligament repair.
--- NOTE | 2021-02-12 08:53 | PCM.NOTE ---
Date and Time: 02/12/21850 Subjective Assessment: patient is feeling ok, still requiring oxygen. she is taking po, pain is controlled Objective Exam General Appearance: no apparent distress, obese Wound Assessment: Skin/Wound Assessment Wound/Incision Assessment Start: 02/11/21 12:24 Text: Status: Active Freq: Q4H Protocol: Document 02/12/21 04:00 ST (Rec: 02/12/21 04:13 ST [id number]) Wound/Incision Assessment Right Ankle Wound Assessment Shift Assessment Dressing Status Dry & Intact Comment Plaster splint with ZACHARY wrap intact, elevated on pillows Respiratory Exam: wheezing, No accessory muscle use Cardiovascular Exam: regular rate/rhythm, normal heart sounds Gastrointestinal/Abdomen Exam: soft, No tenderness, No mass OBJECTIVE DATA Vital Signs: Vital Signs - 24 hr Temp Pulse Resp BP Pulse Ox 02/12/21 08:00 96.6 F 84 18 128/69 90 L 02/12/21 04:00 97.6 F 85 16 116/61 97 02/12/21 00:00 18 02/11/21 23:07 97.1 F 88 18 111/59 93 L 02/11/21 20:50 98.1 F 85 20 167/73 94 L 02/11/21 20:00 17 02/11/21 19:50 97.9 F 90 17 113/68 96 02/11/21 18:50 97.7 F 97 H 16 107/60 91 L 02/11/21 18:20 97.1 F 85 18 120/71 92 L 02/11/21 17:44 78 20 92 L 02/11/21 17:24 97.6 F 91 H 18 150/76 91 L 02/11/21 09:47 97.6 F 91 H 18 150/76 91 L 02/11/21 09:42 97.6 F 91 H 18 150/76 91 L 02/11/21 09:23 87 18 88 L Pain Assessment - Last Documented Pain Intensity [right ankle] 4 Pain Intensity 0 Pain Scale Used 0-10 Pain Scale Intake and Output: Intake & Output 02/09/21 02/10/21 02/11/21 02/12/21 11:59 11:59 11:59 11:59 Intake Total 1587 Output Total 900 Balance 687 Weight 114.305 kg 114.305 kg Lab Results: Lab Results-Last 24 Hours 02/11/21 02/11/21 02/11/21 Range/Units 10:00 10:00 11:49 WBC 9.5 (4.0-10.5) K/mm3 RBC 4.80 (4.1-5.4) M/mm3 Hgb 15.4 (12.0-16.0) gm/dl Hct 47.9 H (35-47) % MCV 99.8 (78-100) fl MCH 32.1 H (26-32) pg MCHC 32.2 (32-36) g/dl RDW 14.6 H (11.5-14.0) % Plt Count 202 (150-450) K/mm3 MPV 8.3 (7.5-11.0) fl Sodium 140 (137-145) mmol/L Potassium 4.7 (3.5-5.1) mmol/L Chloride 100 (98-107) mmol/L Carbon Dioxide 33 H (22-30) mmol/L Anion Gap 11.3 (5-15) MEQ/L BUN 15 (7-17) mg/dL Creatinine 0.54 (0.52-1.04) mg/dL Estimated GFR > 60.0 ML/MIN Glucose 115 H (74-106) mg/dL Calcium 9.2 (8.4-10.2) mg/dL Urine Color (YELLOW) Urine Appearance (CLEAR) Urine pH (5-6) Ur Specific [place] (1.005-1.025) Urine Protein (Negative) Urine Ketones (NEGATIVE) Urine Blood (0-5) Edin/ul Urine Nitrite (NEGATIVE) Urine Bilirubin (NEGATIVE) Urine Urobilinogen (0-1) mg/dL Ur Leukocyte Esterase (NEGATIVE) Urine WBC (Auto) (0-5) /HPF Urine RBC (Auto) (0-2) /HPF U Epithel Cells (Auto) (FEW) /HPF Urine Mucus (Auto) (NEGATIVE) /HPF Urine Glucose (NEGATIVE) mg/dL SARS-CoV-2 (PCR) NEGATIVE (NEGATIVE) 02/11/21 Range/Units 13:30 WBC (4.0-10.5) K/mm3 RBC (4.1-5.4) M/mm3 Hgb (12.0-16.0) gm/dl Hct (35-47) % MCV (78-100) fl MCH (26-32) pg MCHC (32-36) g/dl RDW (11.5-14.0) % Plt Count (150-450) K/mm3 MPV (7.5-11.0) fl Sodium (137-145) mmol/L Potassium (3.5-5.1) mmol/L Chloride (98-107) mmol/L Carbon Dioxide (22-30) mmol/L Anion Gap (5-15) MEQ/L BUN (7-17) mg/dL Creatinine (0.52-1.04) mg/dL Estimated GFR ML/MIN Glucose (74-106) mg/dL Calcium (8.4-10.2) mg/dL Urine Color YELLOW (YELLOW) Urine Appearance CLEAR (CLEAR) Urine pH 5.0 (5-6) Ur Specific [place] 1.019 (1.005-1.025) Urine Protein NEGATIVE (Negative) Urine Ketones NEGATIVE (NEGATIVE) Urine Blood NEGATIVE (0-5) Edin/ul Urine Nitrite NEGATIVE (NEGATIVE) Urine Bilirubin NEGATIVE (NEGATIVE) Urine Urobilinogen NEGATIVE (0-1) mg/dL Ur Leukocyte Esterase NEGATIVE (NEGATIVE) Urine WBC (Auto) 0-2 (0-5) /HPF Urine RBC (Auto) 0-2 (0-2) /HPF U Epithel Cells (Auto) RARE (FEW) /HPF Urine Mucus (Auto) SLIGHT (NEGATIVE) /HPF Urine Glucose NEGATIVE (NEGATIVE) mg/dL SARS-CoV-2 (PCR) (NEGATIVE) Radiology Exams: Radiology Procedures Category Date Time Status ANKLE (3 VIEWS) Routine Exams 02/11/21 15:48 Completed CHEST 1 VIEW (PORTABLE) Stat Exams 02/11/21 11:55 Completed FLUOROSCOPY UP TO 1 HR Routine Exams 02/11/21 15:48 Completed Multi-Disciplinary Progress Notes: Multi-Disciplinary Progress Notes 02/11/21 13:04 Case Management Note by Doreen Serrano ORDER FOR KNEE SCOOTER FAXED TO [facility] AT THIS TIME Initialized on 02/11/21 13:04 - END OF NOTE 02/11/21 09:18 (created 02/11/21 11:28) Respiratory Note by Winter Davidson The patient's O2 sat on room air at rest is 88%. Checked patient's O2 sats with two different oximeters and O2 sat remains 88% on room air at rest. Initialized on 02/11/21 11:28 - END OF NOTE Assessment/Plan (1) COPD (chronic obstructive pulmonary disease) Current Visit: Yes Status: Acute Assessment & Plan: on doxy, add po prednisone, nebs and advair. might require home oxygen (2) Trimalleolar fracture of right ankle Current Visit: Yes Status: Acute Code(s): S82.851A - DISPLACED TRIMALLEOLAR FRACTURE OF RIGHT LOWER LEG, INIT
[2021-02-12] MEDS ORDERED: Seroquel 25 MG PO SCH (10:00)
[2021-02-12] MEDS ORDERED: NON-FORMULARY ITEM (Omeprazole 20 Mg [Prilosec 20 Mg] 20 MG Capsule.Dr) PO SCH (10:00)
[2021-02-12] MEDS ORDERED: NON-FORMULARY ITEM (Atorvastatin Calcium 10 MG Tablet) PO SCH (10:00)
[2021-02-12] MEDS ORDERED: BUPROPION HCL 100 MG PO SCH (10:00)
[2021-02-12] MEDS ORDERED: NON-FORMULARY ITEM (Escitalopram Oxalate [Lexapro] 20 MG Tablet) PO SCH (10:00)
[2021-02-12] MEDS ORDERED: DELTASONE 20 MG PO SCH (10:00)
[2021-02-12] MEDS: Glucophage 500 MG PO SCH (10:22)
[2021-02-12] MEDS: XARELTO 10 MG TABLET PO SCH (10:22)
[2021-02-12] MEDS: Lexapro 10 MG PO SCH (10:22)
[2021-02-12] MEDS: Protonix 40MG Tablet PO SCH (10:23)
[2021-02-12] MEDS: ANTIVERT 25 MG PO SCH (10:23)
[2021-02-12] MEDS: Zocor 10MG PO SCH (10:23)
[2021-02-12] MEDS: Vibramycin 100 MG PO SCH (10:23)
[2021-02-12] MEDS: NON-FORMULARY ITEM PO SCH (10:23)
[2021-02-12] MEDS: Bystolic 5 MG PO SCH (10:23)
[2021-02-12] MEDS: Wellbutrin XL 150 MG PO SCH (10:24)
[2021-02-12 12:03] VITALS: BP 127/72; PULSE 77; O2SAT 92
[2021-02-12] MEDS ORDERED: DUONEB 0.5-3 MG/3 ml Neb IH SCH (13:00)
[2021-02-12] MEDS ORDERED: Advair Hfa 230/21 Mcg COMMON CANISTER IH SCH (19:00)
--- NOTE | 2021-02-14 11:42 | OP ---
SURGERY DATE/TIME: 02/11/2021 1300 PREOPERATIVE DIAGNOSIS: Bimalleolar equivalent with medial deltoid ligament rupture as well as syndesmosis rupture. POSTOPERATIVE DIAGNOSIS: Bimalleolar equivalent with medial deltoid ligament rupture as well as syndesmosis rupture. PROCEDURE: Open reduction internal fixation of right ankle fracture, syndesmotic reduction as well as medial deltoid repair. SURGEON: Nav Hannon DPM. SCIENTIFIC LABORATORY SUPERVISOR: None. ANESTHESIA: Spinal block with sedation as well as a popliteal and saphenous block postoperatively. HEMOSTASIS: Thigh tourniquet set to 350 mm of Mercury for a total of 118 minutes total tourniquet time. ESTIMATED BLOOD LOSS: Less than 40 cc. MATERIALS: Prasad 10-hole anatomical fibular plate with a combination of locking and nonlocking screws, two syndesmotic screws as well as a 5.5 biocomposite suture anchor for medial deltoid repair, 2-0 Vicryl, 4-0 Monocryl and surgical staple. INJECTABLES: See anesthesia report for details. INDICATION FOR PROCEDURE: Fifi is a very pleasant 61-year-old female who presented to my clinic on Sunday after having suffered a fracture the previous night. The patient indicates that she was in the childs and slipped and fell and suffered an ankle fracture while in the seated position. She indicates when she went to get up there was a further snapping sensation of the ankle. Immediate pain and inability to bear weight and presented to the emergency department. The patient was diagnosed with a bimalleolar ankle fracture with a widened syndesmosis as well as widening in the clear space. The patient was reduced in the emergency room and sent to my clinic the following day for assessment. At the time of assessment, the patient was deemed to have adequate skin tension lines with no cyanosis, necrosis or significant ecchymosis associated with the fracture and we decided to proceed the following day with surgical intervention. The patient understands given the fact that she is a significantly heavy cigarette smoker as well as controlled diabetic, she has a higher risk than the normal population for potential complications by treating this nonoperatively and still having complications of being a diabetic and going forward with surgical intervention. She understands and wishes to proceed with surgical intervention at this time understanding all risks that were presented to her including but not limited to delayed wound healing, nonwound healing, delayed bone healing, no bone healing, possible failure of surgical intervention, potential failure of hardware and possible need for surgical intervention in the future. The patient was also consulted on the possibility of loss of limb and loss of life as a result of the fracture and complications that could result with this type of injury. The patient understands all of this and wishes to proceed at this time. Surgical consent has been signed, dated and is in the patient's paper chart. It is with that she wishes to proceed with surgical intervention. DESCRIPTION OF PROCEDURE AND FINDINGS: The patient was brought into the OR and placed on the OR table in supine position. She as then placed in the seated position and a spinal block was administered. Following the successful spinal block, the patient was sedated mildly and a well-padded thigh tourniquet was applied to the right lower extremity. At this time the right lower extremity was prepped and draped in the typical sterile fashion. At this time fluoroscopy was brought in and utilized to identify the location of fibular fracture. This was marked out using a skin marker and an Esmarch was then utilized to exsanguinate the right lower extremity. At this time the tourniquet was set to 350 mm of Mercury and inflated. Attention was directed to the lateral aspect of the right lower extremity where an incision was made directly over the fibula. At this time attention was made while making dissection which was completed using a combination of sharp and blunt in order to provide for no neurovascular injury. We encountered the fracture site. At this time copious amounts of sterile saline were utilized to flush the fracture site and dental pick was utilized to elevate periosteum that was enveloped within the fracture. At this time, bone reduction forceps were utilized to hold the bone in anatomical position this was checked under fluoroscopy and temporary fixation was left while placing the lag screws perpendicular to longitudinal axis of the fracture site. Once this was achieved, the bone reduction forceps were removed and a 10-hole anatomically marking plate was applied to the fibula. At this time traditional fixation screws placed and BB tack this was checked under fluoroscopy and deemed to be in an adequate position. At this time the distal 2.7 mm screws were placed in combination of locking and nonlocking screws. At this time functional fixation was then accomplished utilizing 3.5 mm locking screws in bicortical fashion, this was checked under fluoroscopy and deemed to be adequate making sure that the ankle mortise was anatomical with dime sized fragment in the anatomical position. At this time the syndesmotic screws were placed in a bicortical fashion across the fibula and the tibia reducing the syndesmosis. The size screws that were used were a 50 and 55 in quadricortical-type fashion. At this time attention then was directed to the medial malleolus where the deltoid ligament was stressed under fluoroscopy and demonstrated a significant amount of laxity at this ligament. Incidentally, it was also found that there was a rupture of the lateral ankle ligaments as well. The medial deltoid was assessed at this time and a small 2 cm incision was made just over the distal tip of the fibula. At this time dissection was made and the distal and proximal length of the deep and superficial deltoid were found from this incision. A BioComposite 5.5 mm anchor was then drilled, tapped and placed into the distal tip of the medial malleolus. At this time the anchor was tested and deemed to be adequate. The two limbs of the fiber tape were then passed through the deep and superficial deltoid and secured utilizing hand tying making sure to hold the foot in rectus position while tying those down this was once again stressed demonstrating no laxity of the superficial or deep deltoid at this site. Copious amounts of sterile saline were utilized to flush the surgical site. A 2-0 Vicryl was then utilized to coapt the subcutaneous skin edges, and then the skin was coapted utilizing surgical haritha with everting staple edges. The tourniquet was then let down at 117 total minutes tourniquet time. A wet lap was used to cleanse the extremity and a dry lap was used to dry. Dressing consisting of Betadine, Adaptic, 4x4, Kerlix were then applied to the right lower extremity and then a well-padded posterior splint with Sugar-Tong was applied to the right lower extremity and secured with a 4-inch and 6-inch ZACHARY. Following the procedure, the patient will be sedated provided by popliteal as well as saphenous block in order to provide the patient in postoperative pain management. The patient was then reversed from anesthesia and brought to the postoperative anesthesia care unit with vital signs stable and vascular status intact. The patient handled the procedure without complication from the anesthesia or the procedure. Patient orders as indicated in the patient's outpatient chart.
--- NOTE | 2021-02-14 12:53 | HP ---
CHIEF COMPLAINT: Hypoxia and right ankle fracture. HISTORY OF PRESENT ILLNESS: This patient is a 61-year-old female patient who was taken to the OR by Dr. Nav Hannon today. She does not see a local physician but sees a nurse practitioner, Kary Bond at [facility]. The patient had a recent injury to the right ankle with a trimalleolar fracture and had open reduction internal fixation today with Dr. Chopra. She was mildly hypoxic on her arrival for this procedure therefore is being admitted postoperatively for observation. Of note, she has a 30 pack year history of tobacco use. She does have an Albuterol inhaler she uses as needed. She does not know of a specific diagnosis of chronic obstructive pulmonary disease but she has multiple other co-morbidities including morbid obesity and diabetes type II. She was seen by me today in the postoperative anesthesia care unit following her procedure and she is resting comfortably and saturating good on 2 liters of oxygen. Her surgery went successfully and she is alert, oriented and answered questions appropriately. PAST MEDICAL HISTORY: Includes diabetes type II, anxiety, depression, CURRENT MEDICATIONS: She takes Seroquel 200 mg at bedtime, Prazosin 1 to 3 capsules at bedtime, omeprazole 20 mg daily, Nitro PRN, metformin extended release 500 mg daily, meclizine 25 mg daily as needed for vertigo, lisinopril 10 mg daily, escitalopram 20 mg daily, Celebrex 100 mg twice a day, Bystolic 5 mg daily, bupropion XL 150 mg daily, atorvastatin 10 mg daily, aspirin 325 mg daily, Albuterol sulfate 2 puffs every six hours PRN. ALLERGIES: ABILIFY. CYCLOBENZAPRINE. PERCOCET. SOCIAL HISTORY: She has a 30 pack year history of smoking, denies alcohol or illicit drug use. FAMILY HISTORY: Noncontributory. REVIEW OF SYSTEMS: Again, she is seen in postoperative anesthesia care unit. She is alert but slightly drowsy from sedation. Her pain is currently well controlled postoperatively. CVS: She denies chest pain. No syncope. No palpitations. RESPIRATORY: She had some chronic cough which she attributes to her tobacco use. She is not acutely short of breath. Her cough is currently not productive. She has not had a fever. NEUROLOGIC: She denies numbness, tingling to the extremities. No muscle weakness or sensory deficits. SKIN: No rashes. No suspicious lesions. The remainder of systems reviewed on presentation was found to be negative. PHYSICAL EXAMINATION: Temperature 97.6F, pulse 91, respiratory rate 18, blood pressure 150/76. Oxygen saturation 98% on 2 liters nasal cannula during exam. GENERAL: Alert, oriented x3, morbidly obese in no apparent distress. HEENT: Head - Normocephalic, atraumatic. Eyes - Pupils equal round and reactive to light and accommodation. Extra-ocular movements intact. NECK: Supple without lymphadenopathy. CVS: Regular rate and rhythm. No murmur. No gallop. No rub. RESPIRATORY: There are prolonged expiratory phase with minimal wheezing throughout bilateral lung mccabe. ABDOMEN: Soft, obese. SKIN: Odon, warm and dry. EXTREMITIES: She has a dressing in the right lower extremity. LAB DATA AND TESTS: Laboratory results: CBC, white blood cell count 9.5, hemoglobin 15.4, hematocrit 47.9, PLT count 202,000. Chemistries: Sodium 140, potassium 4.7, chloride 100, carbon dioxide 33, BUN 15, creatinine 0.54, glucose 115. X-ray results: Chest x-ray shows mild interstitial haziness in the right lung, questionable infiltrate, no other acute cardiopulmonary process. ASSESSMENT: The patient is a 61-year-old female with apparent chronic obstructive pulmonary disease diagnosed clinically based upon tobacco use history and current symptomatology with suspected chronic hypoxemic respiratory failure. She had a successful open reduction internal fixation of trimalleolar right ankle fracture. At this time she is admitted to observation, will treat her with DuoNeb every six hours and supplemental oxygen and see if we can wean her from the oxygen requirement. Postoperative ankle fracture care will be managed per Dr. Chopra. Also for diabetes type II will continue sliding scale coverage at this time. No other changes.
== END 2021-02-12 16:00 | disposition home or self-care (01) ==
LOC: SDC 08:22 → MED SURG 11:46
PROVIDERS: ADMIT Family Medicine; ATTEND Family Medicine
DX: S82.841A Displaced bimalleolar fracture of right lower leg, initial encounter for closed fracture (principal); S93.421A Sprain of deltoid ligament of right ankle, initial encounter; M25.571 Pain in right ankle and joints of right foot; R09.02 Hypoxemia; E11.9 Type 2 diabetes mellitus without complications; E66.01 Morbid (severe) obesity due to excess calories; Z79.899 Other long term (current) drug therapy; F17.200 Nicotine dependence, unspecified, uncomplicated; Z20.822 Contact with and (suspected) exposure to COVID-19
CPT/HCPCS: 27695; 27814; 27829; 36415; 71045; 73610; 76000; 80048; 81001; 85027; 87086; 94640; 94760; G0378; U0003; 64450; 64486; 76937; 76942; J0171; J0690; J1100; J1885; J2250; J2405; J2704; J2795; J3010; A9270-GY

== ENCOUNTER 2021-05-25 09:54 | Day surgery (SDC) | payer MEDICARE ==
[2012-03-02 23:16] VITALS: BP 140/80
[2021-05-25] MEDS ORDERED: BUPIVACAINE 0.5% VIAL IJ ONE (09:55)
[2021-05-25] MEDS ORDERED: Depo-Medrol 40 MG/ML IM ONE (09:55)
[2021-05-25] MEDS ORDERED: Lactated Ringers 1,000 ML IV ONE (12:29)
[2021-05-25] MEDS ORDERED: DIPRIVAN 200 MG/20 ML IV ONE (12:48)
--- NOTE | 2021-05-25 13:59 | XRAY ---
10 seconds fluoroscopy time in surgery for injection of the right greater trochanter of the right hip.
--- NOTE | 2021-05-25 14:07 | XRAY ---
Indication: Right greater trochanter bursa injection. Intraoperative fluoroscopy provided for 10 seconds. Single digital spot image submitted for interpretation demonstrates needle tip projecting lateral to the right greater trochanter. Small amount of contrast injected for needle tip placement. Correlate with intraoperative findings/report.
== END 2021-05-25 13:15 | disposition home or self-care (01) ==
LOC: SDC-PAIN 09:54
PROVIDERS: ATTEND Psychiatry & Neurology Pain Medicine
DX: M70.61 Trochanteric bursitis, right hip (principal); E11.9 Type 2 diabetes mellitus without complications; Z79.899 Other long term (current) drug therapy
CPT/HCPCS: 20610; 73501; 77002; 82947; J1030; J2704; Q9966

== ENCOUNTER 2021-09-28 11:46 | Day surgery (SDC) | payer MEDICARE ==
[2012-03-02 23:16] VITALS: BP 140/80
[2021-09-28] MEDS ORDERED: Depo-Medrol 40 MG/ML IM ONE (11:47)
[2021-09-28] MEDS ORDERED: Marcaine Mpf 0.5% Vial 30 Ml IJ ONE (11:47)
[2021-09-28] MEDS ORDERED: DIPRIVAN 200 MG/20 ML IV ONE (12:56)
[2021-09-28] MEDS ORDERED: Lactated Ringers 1,000 ML IV ONE (14:14)
--- NOTE | 2021-09-28 14:34 | XRAY ---
Indication: Bilateral greater trochanter bursa injections. Intraoperative fluoroscopy provided for 21 seconds. 2 digital spot image submitted for interpretation demonstrates needle tip projecting lateral to the left and right greater trochanters. Small amount of contrast was injected for both needle tip placement. Correlate with intraoperative findings/report.
--- NOTE | 2021-09-28 14:36 | XRAY ---
21 seconds of fluoroscopy was used in surgery for bilateral hip greater trochanteric bursa injections.
== END 2021-09-28 13:22 | disposition home or self-care (01) ==
LOC: SDC-PAIN 11:46
PROVIDERS: ATTEND Psychiatry & Neurology Pain Medicine
DX: M70.62 Trochanteric bursitis, left hip (principal); M70.61 Trochanteric bursitis, right hip; E11.9 Type 2 diabetes mellitus without complications; Z79.899 Other long term (current) drug therapy
CPT/HCPCS: 20610; 73521; 77002; 82947; J1030; J2704; Q9966

== ENCOUNTER 2021-11-22 05:54 | Day surgery (SDC) | payer MEDICARE ==
[2021-11-22] MEDS ORDERED: Lactated Ringers 1,000 ML IV SCH (07:30)
[2021-11-22] MEDS ORDERED: CEFAZOLIN 2 GM-D5W BAG** 2 GM/50 ML ML IV SCH (07:30)
[2021-11-22] MEDS ORDERED: CEFAZOLIN 2 GM-D5W BAG** 2 GM/50 ML ML IV ONE (07:49)
[2021-11-22] MEDS ORDERED: Lactated Ringers 1,000 ML IV ONE (07:50)
[2021-11-22] MEDS ORDERED: Sodium Chloride 3 ML UD NEBULES IH ONE (09:17)
[2021-11-22] MEDS ORDERED: Xopenex 1.25 MG/0.5 ML UD NEBULE IH ONE (09:18)
[2021-11-22] MEDS ORDERED: Atrovent 0.5MG NEBULE IH ONE (09:19)
[2021-11-22 10:47] VITALS: BP 106/62; PULSE 83; O2SAT 91
--- NOTE | 2021-11-23 08:28 | OP ---
SURGERY DATE/TIME: 11/22/2021 0831 PREOPERATIVE DIAGNOSIS: Postmenopausal bleeding. POSTOPERATIVE DIAGNOSIS: Postmenopausal bleeding. PROCEDURE: Hysteroscopy D&C. SURGEON: Kirk Mooney D.O. SALES AND MARKETING MANAGER: Kellie Del Cid surgical product sales consultant. ANESTHESIA: General. ESTIMATED BLOOD LOSS: Minimal. COMPLICATIONS: None. INDICATIONS: The risks, benefits, indications and alternatives of the procedure were reviewed with the patient prior to the procedure. The patient understood the risk of infection, bleeding, bowel injury, bladder injury, ureteral injury, uterine perforation associated with this surgery and desires to have this surgery as a possible means to alleviate her current medical condition. DESCRIPTION OF PROCEDURE AND FINDINGS: At this point the patient is taken to the operating room, given general sedation, placed in dorsal lithotomy position, prepped and draped in the usual sterile fashion. A weighted speculum is then placed in the patient's vagina and the anterior lip of the cervix grasped with a single tooth tenaculum. Endocervical dilators were advanced through the endocervical canal as a means to dilate the cervix and a 5 mm hysteroscope was then placed in through the endocervical region where visualization of the uterine cavity appeared to be within normal limits. From this point, the hysteroscope was removed and a curette was then placed into the fundus of the uterus and curettage performed in all quadrants of the uterus retrieving a moderate amount of tissue. There did appear to be posteriorly a fibroid appearing lesion that was felt by the curette. At this point the curette was removed. There was minimal bleeding that was noted at this time. All instruments were then removed from the patient's vaginal region. The patient was then taken out of dorsal lithotomy position, was taken out of anesthesia and taken to the recovery room in stable condition. All instruments and laps were accounted for x2.
== END 2021-11-22 10:45 | disposition home or self-care (01) ==
LOC: SDC 05:54
PROVIDERS: ATTEND Obstetrics & Gynecology
DX: N95.0 Postmenopausal bleeding (principal); E11.9 Type 2 diabetes mellitus without complications
CPT/HCPCS: 82947; 94640; J0690; A9270-GY

== ENCOUNTER 2022-02-07 10:52 | Inpatient (IN) | payer MEDICARE ==
[2022-02-07] MEDS ORDERED: DUONEB 0.5-3 MG/3 ml Neb IH ONE ×2 (11:27→12:02)
[2022-02-07] MEDS: Sodium Chloride 0.9% 1000 ML 1,000 ML IV SCH ×3 (11:50→20:37)
[2022-02-07 12:05] LABS: Hematocrit 46.1 % (35-47); Hemoglobin 14.7 g/dL (12.0-16.0); Mean Cell Volume 98.5 fL (78-100); Mean Corpuscular Hemoglobin 31.4 pg (26-32); Mean Corpuscular Hgb Concent. 31.9 g/dL (32-36); Mean Platelet Volume 8.7 fL (7.5-11.0); Platelet Count 223 x10^3/uL (150-450); Red Blood Count 4.68 x10^6/uL (4.1-5.4); Red Cell Distribution Width 15.9 % (11.5-14.0); White Blood Count 19.7 x10^3/uL (4.0-10.5)
[2022-02-07 12:17] LABS: ISTAT CREA 2.7 mg/dL (0.6-1.3); ISTAT K 4.2 mmol/L (3.5-4.9)
[2022-02-07 12:21] LABS: INR 1.3 (0.8-3.0); PROTIME 13.5 SECONDS (9.4-12.5); PTT 30.2 SECONDS (25.1-36.5)
[2022-02-07 12:24] LABS: Bacteria MANY /HPF (NEGATIVE); Epithelial Cells FEW /HPF (FEW); Mucus SLIGHT /HPF (NEGATIVE); WBC 51-100 /HPF (0-5)
[2022-02-07 12:25] LABS: Appearance CLOUDY (CLEAR); Bilirubin MODERATE (NEGATIVE); Dipstick done @ ? MAIN LAB; Glucose NEGATIVE (NEGATIVE); Ketones SMALL-15 (NEGATIVE); Nitrite POSITIVE (NEGATIVE); Protein,Urine Dip 100 (Negative); RBC SMALL Ery/ul (0-5); Specific Gravity >=1.030 (1.005-1.025); Urobilinogen 1 mg/dL (0-1)
[2022-02-07 12:26] LABS: Urine Cultured Indicated? YES
[2022-02-07] MEDS ORDERED: Hydromorphone 1 mg/ml Injection ONE (12:27)
[2022-02-07] MEDS ORDERED: Hydromorphone 1 mg/ml Injection IV ONE (12:28)
--- NOTE | 2022-02-07 12:36 | ERPHSYRPT ---
- History of Present Illness Time Seen by Provider: 02/07/22 11:15 Source: patient Exam Limitations: no limitations Patient Subjective Stated Complaint: Vomiting Triage Nursing Assessment: Patient brought into ED per w/c and transferred to bed with assist of 1. Patient complains of vomiting blood tinged emesis, dizziness, pain to left upper back. Patient states it hurts to take a deep breath. Patient wears O2 at 2 liters per n/c but states she hasn't worn it since last night. O2 noted to be 88% on 6 liters per N/C. Patient complains of pain all over. Patient post hysterectomy December 30, 2021. Lungs noted to be diminished. Physician History: Patient is a 62-year-old white female who presents with a primary complaint of vomiting. She recently had a hysterectomy on 30 December and had done well until a few days ago. Her surgery consisted of a recent hysterectomy. She has COPD and is on O2 chronically at home she is on 2 L. She has not been using her O2 at home. She has been dizzy she has been vomiting she has been coughing up blood-streaked streaked sputum she has been short of breath she complains of weakness and left-sided chest pain in the left posterior chest primarily. Timing/Duration: yesterday Severity: moderate Associated Symptoms: nausea, vomiting, abdominal pain, shortness of breath, heartburn, cough, chest pain, weakness Allergies/Adverse Reactions: aripiprazole [From Abilify] Allergy (Severe, Verified 02/07/22 11:10) Lightheadedness cyclobenzaprine HCl [From Flexeril] Allergy (Severe, Verified 02/07/22 11:10) Lightheadedness oxycodone [From Percocet] Allergy (Verified 02/07/22 11:10) Home Medications: Omeprazole 20 MG [Prilosec 20 mg] 1 tab PO DAILY 09/06/16 [History] buPROPion HCL [Wellbutrin] 150 mg PO DAILY 09/06/16 [History] Atorvastatin Calcium [Lipitor] 1 ea PO DAILY 12/19/19 [History] Metformin HCl 500 mg [Glucophage 500 MG] 1 ea PO DAILY 12/19/19 [History] Quetiapine Fumarate 200 mg PO HS 12/19/19 [History] Escitalopram Oxalate [Lexapro] 20 mg PO DAILY 03/30/20 [History] Quetiapine Fumarate 25 mg [Seroquel 25 MG] 25 mg PO BID 03/30/20 [History] Albuterol Sulfate [Albuterol Sulfate Hfa] 18 gm IH Q4-6HPRN PRN 12/11/20 [History] Naloxone HCl [Narcan] 1 puff IH DIRECTIONS UNKNOWN PRN 12/11/20 [History] Nitroglycerin [Nitrostat] 0.3 mg SL Q5MIN PRN MR X 3 PRN 12/11/20 [History] Prazosin HCl 3 mg PO HS 12/11/20 [History] Hydrocodone/Acetaminophen [Hydrocodone-Acetamin 10-325 mg] 1 tablet PO QID 02/11/21 [History] Ibuprofen 600 mg PO Q8H PRN PRN 02/11/21 [History] Meclizine HCl 25 mg [Antivert 25 mg] 25 mg PO DAILY PRN PRN 11/18/21 [History] Hx Tetanus, Diphtheria Vaccination/Date Given: Yes Hx Influenza Vaccination/Date Given: No Hx Pneumococcal Vaccination/Date Given: No Immunizations Up to Date: Yes Travel Risk - International Travel Have you traveled outside of the country in past 3 weeks: No - Coronavirus Screening Are you exhibiting any of the following symptoms?: No Close contact with a COVID-19 positive Pt in past 14-21 Days: No - Vaccine Status Have you recieved a Covid-19 vaccination: No - Review of Systems Constitutional: Fatigue, Lethargy, Weakness Eyes: No Symptoms Ears, Nose, & Throat: No Symptoms Respiratory: Cough, Other (Hemoptysis) Cardiac: Chest Pain Abdominal/Gastrointestinal: Abdominal Pain, Nausea, Vomiting Genitourinary Symptoms: No Dysuria Musculoskeletal: Back Pain Skin: No Rash Neurological: No Dizziness, No Focal Weakness, No Sensory Changes Psychological: No Symptoms Endocrine: No Symptoms All Other Systems: Reviewed and Negative - Past Medical History Pertinent Past Medical History: Yes Neurological History: Migraines ENT History: Cataracts, Glaucoma Cardiac History: Hypertension Respiratory History: COPD Endocrine Medical History: Diabetes Type II Musculoskeletal History: Fractures, Osteoarthritis GI Medical History: GERD History: No Pertinent History Psycho-Social History: Anxiety Female Reproductive Disorders: Other Other Medical History: FREQUENT PVCs vertigo history of abnormal vag bleeding which. uterine cancer; total hysterectomy 2022 - Past Surgical History Past Surgical History: Yes Neuro Surgical History: No Pertinent History Cardiac: No Pertinent History Respiratory: No Pertinent History Gastrointestinal: Cholecystectomy Genitourinary: No Pertinent History Musculoskeletal: Orthopedic Surgery Female Surgical History: Hysterectomy, Tubal Ligation, Other Other Surgical History: l foot,leep procedure. laser eye surgery. ORIF of rt leg. hysterectomy 2021 - Social History Smoking Status: Current every day smoker How long have you smoked: 45 Exposure to second hand smoke: No Drug Use: none Patient Lives Alone: Yes - Nursing Vital Signs Nursing Vital Signs: Initial Vital Signs Temperature 97.2 F 02/07/22 11:11 Pulse Rate 104 H 02/07/22 11:11 Respiratory Rate 25 H 02/07/22 11:11 Blood Pressure 91/55 02/07/22 11:11 O2 Sat by Pulse Oximetry 88 L 02/07/22 11:11 Pain Scale Pain Intensity 3 - Physical Exam General Appearance: moderate distress, alert Eye Exam: PERRL/EOMI, eyes nml inspection Ears, Nose, Throat Exam: normal ENT inspection, TMs normal, pharynx normal, moist mucous membranes Neck Exam: normal inspection, non-tender, supple, full range of motion Respiratory Exam: respiratory distress, diminished breath sounds, crackles/rales, rhonchi, wheezing, pleural rub Cardiovascular Exam: regular rate/rhythm, normal heart sounds, normal peripheral pulses Gastrointestinal/Abdomen Exam: soft, normal bowel sounds, No tenderness, No mass Back Exam: normal inspection, normal range of motion, No CVA tenderness, No vertebral tenderness Extremity Exam: normal inspection, normal range of motion, pelvis stable Neurologic Exam: alert, oriented x 3, cooperative, normal mood/affect, nml cerebellar function, nml station & gait, sensation nml, No motor deficits Skin Exam: normal color, warm, dry, No rash Lymphatic Exam: No adenopathy SpO2: 90 - Course Nursing assessment & vital signs reviewed: Yes EKG Interpreted by Me: RATE (95), Sinus Rhythm, NORMAL AXIS, NORMAL INTERVALS, NORMAL QRS, NORMAL ST-T - CT Exams Chest CT Interpretation: Other (Left lower lobe consolidating pneumonia suspicious for aspiration) Abdomen/Pelvis CT Interpretation: Other (Abdomen pelvis CT essentially negative for any acute findings) Ordered Tests: Active Orders 24 hr Category Date Time Status Conductor Pullman STAT Care 02/07/22 11:31 Active EKG-ER Only STAT Care 02/07/22 11:30 Active ABDOMEN AND PELVIS W/0 CONTRAS [CT] Stat Exams 02/07/22 11:41 Ordered CHEST WITHOUT CONTRAST [CT] Stat Exams 02/07/22 11:36 Ordered AMYLASE Stat Lab 02/07/22 11:23 Received BLOOD CULTURE Stat Lab 02/07/22 12:47 Ordered CBC W DIFF Stat Lab 02/07/22 11:23 Completed CULTURE,SPUTUM Stat Lab 02/07/22 11:54 Received CULTURE,URINE Stat Lab 02/07/22 11:36 Received D-DIMER QUANTITATIVE Stat Lab 02/07/22 11:23 Completed LIPASE Stat Lab 02/07/22 11:23 Received Lactic Acid Stat Lab 02/07/22 11:32 Completed Manual Differential NC Stat Lab 02/07/22 11:23 Completed NT PRO BNP Stat Lab 02/07/22 11:23 Received PROCALCITONIN Stat Lab 02/07/22 11:23 Received PROTIME WITH INR Stat Lab 02/07/22 11:23 Completed PTT Stat Lab 02/07/22 11:23 Completed TROPONIN Q4H Lab 02/07/22 15:30 Ordered TROPONIN Q4H Lab 02/07/22 19:30 Ordered UA W/RFX CULTURE Stat Lab 02/07/22 11:36 Completed Urine Triage Profile Stat Lab 02/07/22 11:36 Received Respiratory Therapy Assessment DAILY RT 02/07/22 12:02 Active Medication Summary Generic Name Dose Route Start Last Admin Trade Name Freq PRN Reason Stop Dose Admin Sodium Chloride 1,000 mls @ 200 mls/hr 02/07/22 11:30 02/07/22 12:55 Sodium Chloride 0.9% 1000 Ml IV 03/09/22 11:29 999 mls/hr .Q5H GUNNER Infusion Metronidazole 500 mg in 100 mls @ 200 mls/hr 02/07/22 13:17 02/07/22 13:32 Flagyl 500 Mg Ivpb IV 02/07/22 13:46 200 mls/hr STAT STA 200 mls/hr Administration Discontinued Medications Generic Name Dose Route Start Last Admin Trade Name Freq PRN Reason Stop Dose Admin Albuterol/Ipratropium Confirm 02/07/22 11:27 Ipratropium/Albuterol Sulfate 3 Ml Ampul.Neb Administered 02/07/22 11:28 Dose 3 ml IH .STK-MED ONE Albuterol/Ipratropium 3 ml 02/07/22 12:02 02/07/22 11:30 Ipratropium/Albuterol Sulfate 3 Ml Ampul.Neb IH 02/07/22 12:03 3 ml STAT ONE Administration Hydromorphone HCl 1 mg 02/07/22 12:28 02/07/22 12:36 Hydromorphone 1 Mg/1ml Inj 1 Mg/Ml Syringe IV 02/07/22 12:29 1 mg STAT ONE Administration Hydromorphone HCl Confirm 02/07/22 12:27 Hydromorphone 1 Mg/1ml Inj 1 Mg/Ml Syringe Administered 02/07/22 12:28 Dose 1 mg .ROUTE .STK-MED ONE Ceftriaxone Sodium/Dextrose 1 g in 50 mls @ 100 mls/hr 02/07/22 12:48 02/07/22 13:33 Rocephin 1 Gm-D5w 50 Ml Bag IV 02/07/22 13:17 Infused STAT STA Infusion Ceftriaxone Sodium/Dextrose Confirm 02/07/22 13:01 Rocephin 1 Gm-D5w 50 Ml Bag Administered 02/07/22 13:02 Dose 1 g in 50 mls @ ud IV .STK-MED ONE Metronidazole Confirm 02/07/22 13:30 Flagyl 500 Mg Ivpb Administered 02/07/22 13:31 Dose 500 mg in 100 mls @ ud IV .STK-MED ONE Lab/Rad Data: Laboratory Result Diagrams 02/07/22 11:23 02/07/22 11:23 Laboratory Results 02/07/22 02/07/22 02/07/22 Range/Units 11:50 11:36 11:32 WBC (4.0-10.5) x10^3/uL RBC (4.1-5.4) x10^6/uL Hgb (12.0-16.0) g/dL Hct (35-47) % MCV (78-100) fL MCH (26-32) pg MCHC (32-36) g/dL RDW (11.5-14.0) % Plt Count (150-450) x10^3/uL MPV (7.5-11.0) fL PT (9.4-12.5) SECONDS INR (0.8-3.0) APTT (25.1-36.5) SECONDS D-Dimer (0.0-0.50) mg/L Sodium Direct (138-146) mmol/L Potassium (3.5-4.9) mmol/L Chloride (98-109) mmol/L Carbon Dioxide (24-29) mmol/L Venous BUN (8-26) mg/dL Creatinine (0.6-1.3) mg/dL Glucose (70-105) mg/dL Lactic Acid 2.6 H (0.4-2.0) Ionized Calcium (1.12-1.32) mmol/L Troponin (0.00-0.03) ng/mL Urinalys Dipstick Clnc MAIN LAB Urine Color SIGIFREDO (YELLOW) Urine Appearance CLOUDY (CLEAR) Urine pH 5.0 (5-6) Ur Specific [place] >=1.030 (1.005-1.025) POC Urine Protein Conf 100 (Negative) Urine Ketones SMALL-15 (NEGATIVE) Urine Nitrite POSITIVE (NEGATIVE) Urine Bilirubin MODERATE (NEGATIVE) Urine Urobilinogen 1 (0-1) mg/dL Urine Leukocytes SMALL (NEGATIVE) Urine WBC (Auto) 51-100 (0-5) /HPF Urine RBC (Auto) 6-10 (0-2) /HPF U Hyaline Cast (Auto) 3-5 (0-2) /LPF U Epithel Cells (Auto) FEW (FEW) /HPF Urine Bacteria (Auto) MANY (NEGATIVE) /HPF Urine RBC SMALL (0-5) Edin/ul Urine Mucus (Auto) SLIGHT (NEGATIVE) /HPF Ur Culture Indicated? YES Urine Glucose NEGATIVE (NEGATIVE) mg/dL Influenza Type A Ag NEGATIVE (NEGATIVE) Influenza Type B Ag NEGATIVE (NEGATIVE) RSV (PCR) NEGATIVE (Negative) SARS-CoV-2 (PCR) NEGATIVE (NEGATIVE) 02/07/22 02/07/22 02/07/22 Range/Units 11:23 11:23 11:23 WBC (4.0-10.5) x10^3/uL RBC (4.1-5.4) x10^6/uL Hgb (12.0-16.0) g/dL Hct (35-47) % MCV (78-100) fL MCH (26-32) pg MCHC (32-36) g/dL RDW (11.5-14.0) % Plt Count (150-450) x10^3/uL MPV (7.5-11.0) fL PT 13.5 H (9.4-12.5) SECONDS INR 1.30 (0.8-3.0) APTT 30.2 (25.1-36.5) SECONDS D-Dimer 0.76 H* (0.0-0.50) mg/L Sodium Direct 133 L (138-146) mmol/L Potassium 4.2 (3.5-4.9) mmol/L Chloride 92 L (98-109) mmol/L Carbon Dioxide 29 (24-29) mmol/L Venous BUN 30 H (8-26) mg/dL Creatinine 2.7 H (0.6-1.3) mg/dL Glucose 138 H (70-105) mg/dL Lactic Acid (0.4-2.0) Ionized Calcium 1.05 L (1.12-1.32) mmol/L Troponin 0.00 (0.00-0.03) ng/mL Urinalys Dipstick Clnc Urine Color (YELLOW) Urine Appearance (CLEAR) Urine pH (5-6) Ur Specific [place] (1.005-1.025) POC Urine Protein Conf (Negative) Urine Ketones (NEGATIVE) Urine Nitrite (NEGATIVE) Urine Bilirubin (NEGATIVE) Urine Urobilinogen (0-1) mg/dL Urine Leukocytes (NEGATIVE) Urine WBC (Auto) (0-5) /HPF Urine RBC (Auto) (0-2) /HPF U Hyaline Cast (Auto) (0-2) /LPF U Epithel Cells (Auto) (FEW) /HPF Urine Bacteria (Auto) (NEGATIVE) /HPF Urine RBC (0-5) Edin/ul Urine Mucus (Auto) (NEGATIVE) /HPF Ur Culture Indicated? Urine Glucose (NEGATIVE) mg/dL Influenza Type A Ag (NEGATIVE) Influenza Type B Ag (NEGATIVE) RSV (PCR) (Negative) SARS-CoV-2 (PCR) (NEGATIVE) 02/07/22 Range/Units 11:23 WBC 19.7 H (4.0-10.5) x10^3/uL RBC 4.68 (4.1-5.4) x10^6/uL Hgb 14.7 (12.0-16.0) g/dL Hct 46.1 (35-47) % MCV 98.5 (78-100) fL MCH 31.4 (26-32) pg MCHC 31.9 L (32-36) g/dL RDW 15.9 H (11.5-14.0) % Plt Count 223 (150-450) x10^3/uL MPV 8.7 (7.5-11.0) fL PT (9.4-12.5) SECONDS INR (0.8-3.0) APTT (25.1-36.5) SECONDS D-Dimer (0.0-0.50) mg/L Sodium Direct (138-146) mmol/L Potassium (3.5-4.9) mmol/L Chloride (98-109) mmol/L Carbon Dioxide (24-29) mmol/L Venous BUN (8-26) mg/dL Creatinine (0.6-1.3) mg/dL Glucose (70-105) mg/dL Lactic Acid (0.4-2.0) Ionized Calcium (1.12-1.32) mmol/L Troponin (0.00-0.03) ng/mL Urinalys Dipstick Clnc Urine Color (YELLOW) Urine Appearance (CLEAR) Urine pH (5-6) Ur Specific [place] (1.005-1.025) POC Urine Protein Conf (Negative) Urine Ketones (NEGATIVE) Urine Nitrite (NEGATIVE) Urine Bilirubin (NEGATIVE) Urine Urobilinogen (0-1) mg/dL Urine Leukocytes (NEGATIVE) Urine WBC (Auto) (0-5) /HPF Urine RBC (Auto) (0-2) /HPF U Hyaline Cast (Auto) (0-2) /LPF U Epithel Cells (Auto) (FEW) /HPF Urine Bacteria (Auto) (NEGATIVE) /HPF Urine RBC (0-5) Edin/ul Urine Mucus (Auto) (NEGATIVE) /HPF Ur Culture Indicated? Urine Glucose (NEGATIVE) mg/dL Influenza Type A Ag (NEGATIVE) Influenza Type B Ag (NEGATIVE) RSV (PCR) (Negative) SARS-CoV-2 (PCR) (NEGATIVE) - Progress Progress: improved Discussed with : Luda Will see patient in: hospital (observation) - Departure Departure Disposition: Observation Clinical Impression: Left lower lobe pneumonia, Cough, COPD (chronic obstructive pulmonary disease), Urinary tract infection, Sepsis Condition: Serious Critical Care Time: Yes Critical Care Time(excluding separately billable procedures): Critical 30-74 mins (60 minutes) Referrals: RASTA MCGHEE FNP [Primary Care Provider] - Follow up/PCP as directed Instructions: Chronic Obstructive Pulmonary Disease
[2022-02-07 12:40] LABS: D-DIMER QUANTITATIVE 0.76 mg/L (0.0-0.50)
[2022-02-07 12:43] LABS: INFLUENZA A NEGATIVE (NEGATIVE); INFLUENZA B NEGATIVE (NEGATIVE); RESPIRATORY SYNCTIAL VIRUS NEGATIVE (Negative); SARS-CoV-2 Xpert Express NEGATIVE (NEGATIVE)
[2022-02-07] MEDS ORDERED: ROCEPHIN 1 Gm-D5w 50 ml Bag** 1 G/50 ML IVPB IV STA (12:48)
[2022-02-07] MEDS ORDERED: ROCEPHIN 1 Gm-D5w 50 ml Bag** 1 G/50 ML IVPB IV ONE (13:01)
--- NOTE | 2022-02-07 13:08 | XRAY ---
Indication: Vomiting and cough. Hemoptysis. Multiple contiguous axial images obtained through the chest without contrast. Comparison: None There is near complete opacification of the left lower lobe favoring consolidating pneumonia. Remaining lungs demonstrates mild pulmonary emphysema, mild right lung dependent atelectasis, and scattered incidental tiny calcified granulomas. Heart not enlarged. Aorta is normal in course and caliber. Small mediastinal and bilateral hilar calcified nodes. No pathologic mediastinal lymphadenopathy. Bony thorax intact with minimal degenerative changes throughout the spine. CT abdomen/pelvis reported separately. Impression: 1. Consolidating left lower lobe pneumonia. Rule out aspiration. 2. Pulmonary emphysema and old granulomatous disease.
--- NOTE | 2022-02-07 13:10 | XRAY ---
Indication: Vomiting and cough. Hemoptysis. Bodyaches. Multiple contiguous axial images obtained through the abdomen and pelvis without contrast. Comparison: December 09, 2021 CT chest reported separately. Noncontrasted stomach and bowel loops nonobstructed with normal appendix. Interval hysterectomy. No free fluid/air. Again fatty liver, punctate splenic calcified granulomas, and cholecystectomy. Remaining liver, pancreas, spleen, adrenal glands, kidneys, ureters, and bladder are unremarkable for noncontrast exam. Again mild aortoiliac calcifications without AAA. Osseous structures intact again with mild degenerative changes throughout the spine. Impression: 1. Status post hysterectomy. No complications. 2. Again fatty liver, arteriosclerotic disease, and old granulomatous disease. 3. Remaining CT abdomen/pelvis without contrast exam is negative.
[2022-02-07] MEDS ORDERED: FLAGYL 500 MG IVPB 500 MG/100 ML BAG IV STA (13:17)
[2022-02-07] MEDS ORDERED: FLAGYL 500 MG IVPB 500 MG/100 ML BAG IV ONE (13:30)
[2022-02-07] MEDS ORDERED: DUONEB 0.5-3 MG/3 ml Neb IH PRN (13:41)
[2022-02-07] MEDS ORDERED: Sodium Chloride 0.9% 100 ML IV ONE (13:51)
[2022-02-07] MEDS ORDERED: Sodium Chloride 0.9% 1000 ML 1,000 ML IV STA (13:52)
[2022-02-07 14:34] LABS: PROCALCITONIN 26.3 ng/mL (0.030-0.080)
[2022-02-07 14:51] LABS: Amphetamine,Urine NEGATIVE (NEGATIVE); Barbiturate,Urine NEGATIVE (NEGATIVE); Benzodiazepine,Urine NEGATIVE (NEGATIVE); Cocaine,Urine NEGATIVE (NEGATIVE); Methadone,Urine NEGATIVE (NEGATIVE); Opiate,Urine POSITIVE (NEGATIVE); PCP,Urine NEGATIVE (NEGATIVE); THC,Urine NEGATIVE (NEGATIVE)
[2022-02-07] MEDS ORDERED: ENOXAPARIN SODIUM SQ SCH (15:00)
[2022-02-07] MEDS ORDERED: MEDICATION INTERVENTION MC SCH (16:15)
[2022-02-07] MEDS: Lexapro PO SCH (16:37)
[2022-02-07] MEDS: Hydromorphone 1 mg/ml Injection IV PRN ×3 (16:37→23:25)
[2022-02-07] MEDS: Wellbutrin XL 150 MG PO SCH (16:38)
[2022-02-07] MEDS: PIPERACILLIN/TAZOBACTAM 3.375 GM in Sodium Chloride 100ML MINI-BAG PLUS 100 ML IV SCH ×2 (16:39→23:25)
[2022-02-07 19:26] LABS: BAND 7 % (0.0-2.0); Lymphocytes 11 % (24-44); Monocyte 4 % (0.0-12.0); Platelet Estimate NORMAL (NORMAL); Total Cells Counted 100
[2022-02-07] MEDS: FLAGYL 500 MG IVPB 500 MG/100 ML BAG IV SCH (19:31)
[2022-02-07] MEDS: Requip 0.5 MG PO SCH (21:45)
[2022-02-07] MEDS: Seroquel 100 MG PO SCH (21:45)
[2022-02-07] MEDS: ANTIVERT 25 MG PO PRN (21:50)
[2022-02-07] MEDS ORDERED: NON-FORMULARY ITEM (Prazosin Hcl [Prazosin Hcl] 2 MG Capsule) PO SCH (22:00)
[2022-02-07] MEDS ORDERED: PROVENTIL 2.5 MG/3 ML NEB IH ONE (23:15)
[2022-02-07] MEDS: DUONEB 0.5-3 MG/3 ml Neb IH SCH (23:20)
[2022-02-08] MEDS: Sodium Chloride 0.9% 1000 ML 1,000 ML IV SCH ×5 (01:47→23:12)
[2022-02-08] MEDS: FLAGYL 500 MG IVPB 500 MG/100 ML BAG IV SCH ×4 (01:47→20:39)
[2022-02-08] MEDS: Hydromorphone 1 mg/ml Injection IV PRN ×4 (02:53→18:50)
[2022-02-08] MEDS: DUONEB 0.5-3 MG/3 ml Neb IH SCH ×6 (02:55→22:24)
[2022-02-08 03:24] LABS: A-aADO2 545; ABG POTASSIUM 4.2 (3.5-5.1); ARTERIAL BLD GAS O2 SATURATION 97.8 % (95-100); ARTERIAL BLOOD GAS BASE EXCESS -2.7 (-2.0-2.0); ARTERIAL BLOOD GAS FIO2 100 %; ARTERIAL BLOOD GAS PO2 88 mmHg (75-100); CARBOXYHEMOGLOBIN 2.1 % THgb (0.0-6.9); HCO3- 26.2 (22-28); HGB O2 SAT 94.6 g/dF (94-100); Methhemoglobin 1.3 % (1.4-1.5)
[2022-02-08 03:25] LABS: ABG SITE LEFT RADIAL; ALLEN TEST OK? YES; ARTERIAL BLOOD GAS PCO2 64 mmHg (35-45); ARTERIAL BLOOD GAS pH 7.22 (7.35-7.45)
[2022-02-08 05:12] LABS: VBG BASE EXCESS -3.4 (-2.0-2.0); VBG CARBOXYHEMOGLOBIN 2.3 % T HGB (0.0-6.9); VBG HCO3- 25.1 meq/L (22-28); VBG HEMOGLOBIN 12.9; VBG O2 SATURATION 96.8 (95-100); VBG POTASSIUM 4.2 (3.5-5.1)
[2022-02-08 05:13] LABS: VBG pH 7.23 (7.32-7.42)
[2022-02-08 05:20] LABS: Absolute Neutrophil Ct (ANC) 13.51 x10^3/uL (1.4-6.9); Basophil (Absolute #) 0.03 x10^3/uL (0-0.4); Eosinophil % 0.1 % (0.00-5.0); Eosinophil (Absolute #) 0.02 x10^3/uL (0-0.5); Hematocrit 40.2 % (35-47); Hemoglobin 12.5 g/dL (12.0-16.0); Lymphocytes % 7.8 % (24.0-44.0); Mean Cell Volume 101.5 fL (78-100); Mean Corpuscular Hemoglobin 31.6 pg (26-32); Mean Corpuscular Hgb Concent. 31.1 g/dL (32-36); Mean Platelet Volume 8.6 fL (7.5-11.0); Monocyte (Absolute #) 0.53 x10^3/uL (0.0-1.3); Monocytes % 3.4 % (0.0-12.0); Neutrophil % 87.5 % (36.0-66.0); Platelet Count 180 x10^3/uL (150-450); Red Blood Count 3.96 x10^6/uL (4.1-5.4); Red Cell Distribution Width 15.8 % (11.5-14.0); White Blood Count 15.4 x10^3/uL (4.0-10.5)
[2022-02-08 05:47] LABS: ALBUMIN 3.2 g/dL (3.5-5.0); ANION GAP 9.8 MEQ/L (5-15); BILIRUBIN,TOTAL 0.7 mg/dL (0.2-1.3); Creatinine 1 1.1 mg/dL (0.52-1.04); EST GLOMERULAR FILTRATION RATE 53.8 ML/MIN; Potassium 4.1 mmol/L (3.5-5.1); Total Protein 6.1 g/dL (6.3-8.2)
[2022-02-08] MEDS: PIPERACILLIN/TAZOBACTAM 3.375 GM in Sodium Chloride 100ML MINI-BAG PLUS 100 ML IV SCH ×4 (06:09→23:12)
--- NOTE | 2022-02-08 09:11 | PCM.HP ---
History of Present Illness - Chief Complaint Chief Complaint: SEPSIS, PNEUMONIA, UTI History of Present Illness: is a 62 year old female pt with COPD who was admitted to ER with UTI, COPD exacerbation, and LLL PNA (?aspiration). 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 Came in through ER c/o vomiting and coughing up bloody sputum, with saturations in the mid-80s. She was initially put on aeromask then high flow in ER; overnight had to be put on bipap. Her initial ABD with pH 7.22 and CO2 64. She is awaiting another ABG this morning. She was put on rocephin and flagyl intiially, but then started zosyn. Still on flagyl. She had abd surgery (hysterectomy) last month. Initial WBC 19,000. Was found overnight to have Blood Cx + for GPC in chains. this morning she c/o some back pain. Unable to speak much due to bipap. - Review of Systems All Other Systems: Unable due to condition Medications & Allergies Home Medications: Home Medication List Escitalopram Oxalate [Lexapro] 20 mg PO DAILY 03/30/20 [History Confirmed 02/07/22] Meclizine HCl 25 mg [Antivert 25 mg] 25 mg PO DAILY PRN PRN 11/18/21 [History Confirmed 02/07/22] Apixaban [Eliquis] 2.5 mg PO BID 02/07/22 [History Confirmed 02/07/22] Bupropion HCl [Wellbutrin Xl] 300 mg PO DAILY 02/07/22 [History Confirmed 02/07/22] Nebivolol HCl 5 MG [Bystolic 5 MG] 5 mg PO DAILY 02/07/22 [History Confirmed 02/07/22] Prazosin HCl 2 mg PO HS 02/07/22 [History Confirmed 02/07/22] Quetiapine Fumarate 100 mg [Seroquel 100 MG] 350 mg PO HS 02/07/22 [History Confirmed 02/07/22] Ropinirole HCl 0.5 mg [Requip 0.5 MG] 0.5 mg PO BID 02/07/22 [History Confirmed 02/07/22] Allergies/Adverse Reactions: Allergies Allergy/AdvReac Type Severity Reaction Status Date / Time aripiprazole [From Abilify] Allergy Severe Lightheaded Verified 02/07/22 11:10 ness cyclobenzaprine HCl Allergy Severe Lightheaded Verified 02/07/22 11:10 [From Flexeril] ness oxycodone [From Percocet] Allergy Verified 02/07/22 11:10 - Past Medical History Past Medical History: Yes Neurological History: Migraines ENT History: Cataracts, Glaucoma Cardiac History: Hypertension Respiratory History: COPD Endocrine Medical History: Diabetes Type II Musculoskelatal History: Fractures, Osteoarthritis GI Medical History: GERD History: No Pertinent History Pyscho-Social History: Anxiety Reproductive Disorders: Other Comment: uterine cancer; total hysterectomy 2021 - Female History Are you now?: No - Past Surgical History Past Surgical History: Yes Neuro Surgical History: No Pertinent History Cardiac History: No Pertinent History Respiratory Surgery: No Pertinent History GI Surgical History: Cholecystectomy Genitourinary Surgical Hx: No Pertinent History Musculskeletal Surgical Hx: Orthopedic Surgery Female Surgical History: Hysterectomy, Tubal Ligation, Other Other Surgical History: l foot,leep procedure. laser eye surgery. ORIF of rt leg. hysterectomy 2021 - Social History Smoking Status: Current every day smoker How long have you smoked: 45 Exposure to second hand smoke: No Alcohol: None Drug Use: none - Physical Exam Vital Signs: Vital Signs - 24 hr Temp Pulse Resp BP BP Pulse Ox 02/08/22 07:22 96.8 F 76 19 91/52 97 02/08/22 06:59 76 20 97 02/08/22 04:00 97.9 F 78 17 87/51 95 02/08/22 02:55 81 16 88 L 02/07/22 23:34 98 F 97 H 20 94/55 87 L 02/07/22 23:20 88 16 94 L 02/07/22 20:00 96.9 F 94 H 20 103/53 94 L 02/07/22 19:38 95 H 20 94 L 02/07/22 18:09 88 L 02/07/22 16:25 96 H 18 89 L 02/07/22 16:00 98.9 F 94 H 22 102/54 86 L 02/07/22 14:13 8.4 F 94 H 22 87/40 87 L 02/07/22 13:52 94 H 108/70 90 L 02/07/22 13:40 90 L 02/07/22 13:06 93 H 20 94/49 90 L 02/07/22 12:07 95 H 110/64 90 L 02/07/22 12:06 94 H 20 86 L 02/07/22 11:46 94 H 20 81/64 92 L 02/07/22 11:11 97.2 F 104 H 25 H 91/55 88 L General Appearance: obese, other (on bipap) Neurologic Exam: alert, cooperative Eye Exam: eyes nml inspection Ears, Nose, Throat Exam: moist mucous membranes, other (asks for a drink) Neck Exam: normal inspection Respiratory Exam: diminished breath sounds (poor air exchange), wheezing (scattered), No crackles/rales, No rhonchi Cardiovascular Exam: regular rate/rhythm, normal heart sounds, No murmur Gastrointestinal/Abdomen Exam: soft, normal bowel sounds, tenderness (diffuse, she thinks post op) Back Exam: normal inspection, No rash Extremity Exam: No pedal edema, No swelling Skin Exam: normal color, warm, dry, No rash Results - Labs Lab/Micro Results: Lab Results-Last 24 Hours 02/07/22 02/07/22 02/07/22 Range/Units 11:23 11:23 11:23 WBC 19.7 H (4.0-10.5) x10^3/uL RBC 4.68 (4.1-5.4) x10^6/uL Hgb 14.7 (12.0-16.0) g/dL Hct 46.1 (35-47) % MCV 98.5 (78-100) fL MCH 31.4 (26-32) pg MCHC 31.9 L (32-36) g/dL RDW 15.9 H (11.5-14.0) % Plt Count 223 (150-450) x10^3/uL MPV 8.7 (7.5-11.0) fL Gran % (36.0-66.0) % Immature Gran % (Auto) (0.00-0.4) % Nucleat RBC Rel Count (0.00-0.1) % Eos # (Auto) (0-0.5) x10^3/uL Immature Gran # (Auto) (0.00-0.03) x10^3u/L Absolute Lymphs (auto) (1.0-4.6) x10^3/uL Absolute Monos (auto) (0.0-1.3) x10^3/uL Absolute Nucleated RBC (0.00-0.01) x10^3u/L Lymphocytes % (24.0-44.0) % Monocytes % (0.0-12.0) % Eosinophils % (0.00-5.0) % Basophils % (0.0-0.4) % Absolute Granulocytes (1.4-6.9) x10^3/uL Segmented Neutrophils 78 H (36.0-66.0) % Band Neutrophils 7 H (0.0-2.0) % Lymphocytes (Manual) 11 L (24-44) % Monocytes (Manual) 4 (0.0-12.0) % Basophils # (0-0.4) x10^3/uL Platelet Estimate NORMAL (NORMAL) RBC Morphology NORMAL PT 13.5 H (9.4-12.5) SECONDS INR 1.30 (0.8-3.0) APTT 30.2 (25.1-36.5) SECONDS D-Dimer 0.76 H* (0.0-0.50) mg/L Puncture Site pCO2 (35-45) mmHg pO2 (75-100) mmHg pO2/FiO2 Ratio % Base Excess (-2.0-2.0) O2 Saturation (94-100) g/dF ABG pH (7.35-7.45) ABG HCO3 (22-28) ABG O2 Sat (Measured) (95-100) % Сергей Test VBG pH (7.32-7.42) VBG pCO2 at Pat Temp (42-55) mm/Hg VBG pO2 at Pat Temp (25-40) mm/Hg VBG HCO3 (22-28) meq/L VBG O2 Sat ([place]) (95-100) VBG Base Excess (-2.0-2.0) VBG Hemoglobin VBG Carboxyhemoglobin (0.0-6.9) % T HGB A-a Gradient a/A Ratio Hemoglobin Carboxyhemoglobin (0.0-6.9) % THgb Methemoglobin (1.4-1.5) % POC Potassium (3.5-5.1) Temperature C POC O2 Flow Rate % Sodium (137-145) mmol/L Sodium Direct (138-146) mmol/L Potassium (3.5-4.9) mmol/L Chloride (98-109) mmol/L Carbon Dioxide (24-29) mmol/L Anion Gap (5-15) MEQ/L BUN (7-17) mg/dL Venous BUN (8-26) mg/dL Creatinine (0.6-1.3) mg/dL Estimated GFR ML/MIN Glucose (70-105) mg/dL POC Glucometer (74 to 106) mg/dL Lactic Acid (0.4-2.0) Calcium (8.4-10.2) mg/dL Ionized Calcium (1.12-1.32) mmol/L Total Bilirubin (0.2-1.3) mg/dL AST (14-36) U/L ALT (0-35) U/L Alkaline Phosphatase (38-126) U/L Troponin (0.00-0.03) ng/mL Troponin I (0.000-0.034) ng/mL NT-Pro-B Natriuret Pep 874 (0-900) pg/mL Serum Total Protein (6.3-8.2) g/dL Albumin (3.5-5.0) g/dL Amylase 49 (30-110) U/L Lipase 12 L (23-300) U/L Procalcitonin 26.300 H* (0.030-0.080) ng/mL Urinalys Dipstick Clnc Urine Color (YELLOW) Urine Appearance (CLEAR) Urine pH (5-6) Ur Specific [place] (1.005-1.025) POC Urine Protein Conf (Negative) Urine Ketones (NEGATIVE) Urine Nitrite (NEGATIVE) Urine Bilirubin (NEGATIVE) Urine Urobilinogen (0-1) mg/dL Urine Leukocytes (NEGATIVE) Urine WBC (Auto) (0-5) /HPF Urine RBC (Auto) (0-2) /HPF U Hyaline Cast (Auto) (0-2) /LPF U Epithel Cells (Auto) (FEW) /HPF Urine Bacteria (Auto) (NEGATIVE) /HPF Urine RBC (0-5) Edin/ul Urine Mucus (Auto) (NEGATIVE) /HPF Ur Culture Indicated? Urine Glucose (NEGATIVE) mg/dL Urine Opiates Level (NEGATIVE) Ur Methadone (NEGATIVE) Urine Barbiturates (NEGATIVE) Ur Phencyclidine (PCP) (NEGATIVE) Urine Amphetamine (NEGATIVE) U Benzodiazepine Level (NEGATIVE) Urine Cocaine (NEGATIVE) Urine Marijuana (THC) (NEGATIVE) Influenza Type A Ag (NEGATIVE) Influenza Type B Ag (NEGATIVE) RSV (PCR) (Negative) SARS-CoV-2 (PCR) (NEGATIVE) 02/07/22 02/07/22 02/07/22 Range/Units 11:23 11:23 11:32 WBC (4.0-10.5) x10^3/uL RBC (4.1-5.4) x10^6/uL Hgb (12.0-16.0) g/dL Hct (35-47) % MCV (78-100) fL MCH (26-32) pg MCHC (32-36) g/dL RDW (11.5-14.0) % Plt Count (150-450) x10^3/uL MPV (7.5-11.0) fL Gran % (36.0-66.0) % Immature Gran % (Auto) (0.00-0.4) % Nucleat RBC Rel Count (0.00-0.1) % Eos # (Auto) (0-0.5) x10^3/uL Immature Gran # (Auto) (0.00-0.03) x10^3u/L Absolute Lymphs (auto) (1.0-4.6) x10^3/uL Absolute Monos (auto) (0.0-1.3) x10^3/uL Absolute Nucleated RBC (0.00-0.01) x10^3u/L Lymphocytes % (24.0-44.0) % Monocytes % (0.0-12.0) % Eosinophils % (0.00-5.0) % Basophils % (0.0-0.4) % Absolute Granulocytes (1.4-6.9) x10^3/uL Segmented Neutrophils (36.0-66.0) % Band Neutrophils (0.0-2.0) % Lymphocytes (Manual) (24-44) % Monocytes (Manual) (0.0-12.0) % Basophils # (0-0.4) x10^3/uL Platelet Estimate (NORMAL) RBC Morphology PT (9.4-12.5) SECONDS INR (0.8-3.0) APTT (25.1-36.5) SECONDS D-Dimer (0.0-0.50) mg/L Puncture Site pCO2 (35-45) mmHg pO2 (75-100) mmHg pO2/FiO2 Ratio % Base Excess (-2.0-2.0) O2 Saturation (94-100) g/dF ABG pH (7.35-7.45) ABG HCO3 (22-28) ABG O2 Sat (Measured) (95-100) % Сергей Test VBG pH (7.32-7.42) VBG pCO2 at Pat Temp (42-55) mm/Hg VBG pO2 at Pat Temp (25-40) mm/Hg VBG HCO3 (22-28) meq/L VBG O2 Sat ([place]) (95-100) VBG Base Excess (-2.0-2.0) VBG Hemoglobin VBG Carboxyhemoglobin (0.0-6.9) % T HGB A-a Gradient a/A Ratio Hemoglobin Carboxyhemoglobin (0.0-6.9) % THgb Methemoglobin (1.4-1.5) % POC Potassium (3.5-5.1) Temperature C POC O2 Flow Rate % Sodium (137-145) mmol/L Sodium Direct 133 L (138-146) mmol/L Potassium 4.2 (3.5-4.9) mmol/L Chloride 92 L (98-109) mmol/L Carbon Dioxide 29 (24-29) mmol/L Anion Gap (5-15) MEQ/L BUN (7-17) mg/dL Venous BUN 30 H (8-26) mg/dL Creatinine 2.7 H (0.6-1.3) mg/dL Estimated GFR ML/MIN Glucose 138 H (70-105) mg/dL POC Glucometer (74 to 106) mg/dL Lactic Acid 2.6 H (0.4-2.0) Calcium (8.4-10.2) mg/dL Ionized Calcium 1.05 L (1.12-1.32) mmol/L Total Bilirubin (0.2-1.3) mg/dL AST (14-36) U/L ALT (0-35) U/L Alkaline Phosphatase (38-126) U/L Troponin 0.00 (0.00-0.03) ng/mL Troponin I (0.000-0.034) ng/mL NT-Pro-B Natriuret Pep (0-900) pg/mL Serum Total Protein (6.3-8.2) g/dL Albumin (3.5-5.0) g/dL Amylase (30-110) U/L Lipase (23-300) U/L Procalcitonin (0.030-0.080) ng/mL Urinalys Dipstick Clnc Urine Color (YELLOW) Urine Appearance (CLEAR) Urine pH (5-6) Ur Specific [place] (1.005-1.025) POC Urine Protein Conf (Negative) Urine Ketones (NEGATIVE) Urine Nitrite (NEGATIVE) Urine Bilirubin (NEGATIVE) Urine Urobilinogen (0-1) mg/dL Urine Leukocytes (NEGATIVE) Urine WBC (Auto) (0-5) /HPF Urine RBC (Auto) (0-2) /HPF U Hyaline Cast (Auto) (0-2) /LPF U Epithel Cells (Auto) (FEW) /HPF Urine Bacteria (Auto) (NEGATIVE) /HPF Urine RBC (0-5) Edin/ul Urine Mucus (Auto) (NEGATIVE) /HPF Ur Culture Indicated? Urine Glucose (NEGATIVE) mg/dL Urine Opiates Level (NEGATIVE) Ur Methadone (NEGATIVE) Urine Barbiturates (NEGATIVE) Ur Phencyclidine (PCP) (NEGATIVE) Urine Amphetamine (NEGATIVE) U Benzodiazepine Level (NEGATIVE) Urine Cocaine (NEGATIVE) Urine Marijuana (THC) (NEGATIVE) Influenza Type A Ag (NEGATIVE) Influenza Type B Ag (NEGATIVE) RSV (PCR) (Negative) SARS-CoV-2 (PCR) (NEGATIVE) 02/07/22 02/07/22 02/07/22 Range/Units 11:36 11:36 11:50 WBC (4.0-10.5) x10^3/uL RBC (4.1-5.4) x10^6/uL Hgb (12.0-16.0) g/dL Hct (35-47) % MCV (78-100) fL MCH (26-32) pg MCHC (32-36) g/dL RDW (11.5-14.0) % Plt Count (150-450) x10^3/uL MPV (7.5-11.0) fL Gran % (36.0-66.0) % Immature Gran % (Auto) (0.00-0.4) % Nucleat RBC Rel Count (0.00-0.1) % Eos # (Auto) (0-0.5) x10^3/uL Immature Gran # (Auto) (0.00-0.03) x10^3u/L Absolute Lymphs (auto) (1.0-4.6) x10^3/uL Absolute Monos (auto) (0.0-1.3) x10^3/uL Absolute Nucleated RBC (0.00-0.01) x10^3u/L Lymphocytes % (24.0-44.0) % Monocytes % (0.0-12.0) % Eosinophils % (0.00-5.0) % Basophils % (0.0-0.4) % Absolute Granulocytes (1.4-6.9) x10^3/uL Segmented Neutrophils (36.0-66.0) % Band Neutrophils (0.0-2.0) % Lymphocytes (Manual) (24-44) % Monocytes (Manual) (0.0-12.0) % Basophils # (0-0.4) x10^3/uL Platelet Estimate (NORMAL) RBC Morphology PT (9.4-12.5) SECONDS INR (0.8-3.0) APTT (25.1-36.5) SECONDS D-Dimer (0.0-0.50) mg/L Puncture Site pCO2 (35-45) mmHg pO2 (75-100) mmHg pO2/FiO2 Ratio % Base Excess (-2.0-2.0) O2 Saturation (94-100) g/dF ABG pH (7.35-7.45) ABG HCO3 (22-28) ABG O2 Sat (Measured) (95-100) % Сергей Test VBG pH (7.32-7.42) VBG pCO2 at Pat Temp (42-55) mm/Hg VBG pO2 at Pat Temp (25-40) mm/Hg VBG HCO3 (22-28) meq/L VBG O2 Sat ([place]) (95-100) VBG Base Excess (-2.0-2.0) VBG Hemoglobin VBG Carboxyhemoglobin (0.0-6.9) % T HGB A-a Gradient a/A Ratio Hemoglobin Carboxyhemoglobin (0.0-6.9) % THgb Methemoglobin (1.4-1.5) % POC Potassium (3.5-5.1) Temperature C POC O2 Flow Rate % Sodium (137-145) mmol/L Sodium Direct (138-146) mmol/L Potassium (3.5-4.9) mmol/L Chloride (98-109) mmol/L Carbon Dioxide (24-29) mmol/L Anion Gap (5-15) MEQ/L BUN (7-17) mg/dL Venous BUN (8-26) mg/dL Creatinine (0.6-1.3) mg/dL Estimated GFR ML/MIN Glucose (70-105) mg/dL POC Glucometer (74 to 106) mg/dL Lactic Acid (0.4-2.0) Calcium (8.4-10.2) mg/dL Ionized Calcium (1.12-1.32) mmol/L Total Bilirubin (0.2-1.3) mg/dL AST (14-36) U/L ALT (0-35) U/L Alkaline Phosphatase (38-126) U/L Troponin (0.00-0.03) ng/mL Troponin I (0.000-0.034) ng/mL NT-Pro-B Natriuret Pep (0-900) pg/mL Serum Total Protein (6.3-8.2) g/dL Albumin (3.5-5.0) g/dL Amylase (30-110) U/L Lipase (23-300) U/L Procalcitonin (0.030-0.080) ng/mL Urinalys Dipstick Clnc MAIN LAB Urine Color [place] (YELLOW) Urine Appearance CLOUDY (CLEAR) Urine pH 5.0 (5-6) Ur Specific [place] >=1.030 (1.005-1.025) POC Urine Protein Conf 100 (Negative) Urine Ketones SMALL-15 (NEGATIVE) Urine Nitrite POSITIVE (NEGATIVE) Urine Bilirubin MODERATE (NEGATIVE) Urine Urobilinogen 1 (0-1) mg/dL Urine Leukocytes SMALL (NEGATIVE) Urine WBC (Auto) 51-100 (0-5) /HPF Urine RBC (Auto) 6-10 (0-2) /HPF U Hyaline Cast (Auto) 3-5 (0-2) /LPF U Epithel Cells (Auto) FEW (FEW) /HPF Urine Bacteria (Auto) MANY (NEGATIVE) /HPF Urine RBC SMALL (0-5) Edin/ul Urine Mucus (Auto) SLIGHT (NEGATIVE) /HPF Ur Culture Indicated? YES Urine Glucose NEGATIVE (NEGATIVE) mg/dL Urine Opiates Level POSITIVE (NEGATIVE) Ur Methadone NEGATIVE (NEGATIVE) Urine Barbiturates NEGATIVE (NEGATIVE) Ur Phencyclidine (PCP) NEGATIVE (NEGATIVE) Urine Amphetamine NEGATIVE (NEGATIVE) U Benzodiazepine Level NEGATIVE (NEGATIVE) Urine Cocaine NEGATIVE (NEGATIVE) Urine Marijuana (THC) NEGATIVE (NEGATIVE) Influenza Type A Ag NEGATIVE (NEGATIVE) Influenza Type B Ag NEGATIVE (NEGATIVE) RSV (PCR) NEGATIVE (Negative) SARS-CoV-2 (PCR) NEGATIVE (NEGATIVE) 02/07/22 02/07/22 02/07/22 Range/Units 13:55 15:30 16:23 WBC (4.0-10.5) x10^3/uL RBC (4.1-5.4) x10^6/uL Hgb (12.0-16.0) g/dL Hct (35-47) % MCV (78-100) fL MCH (26-32) pg MCHC (32-36) g/dL RDW (11.5-14.0) % Plt Count (150-450) x10^3/uL MPV (7.5-11.0) fL Gran % (36.0-66.0) % Immature Gran % (Auto) (0.00-0.4) % Nucleat RBC Rel Count (0.00-0.1) % Eos # (Auto) (0-0.5) x10^3/uL Immature Gran # (Auto) (0.00-0.03) x10^3u/L Absolute Lymphs (auto) (1.0-4.6) x10^3/uL Absolute Monos (auto) (0.0-1.3) x10^3/uL Absolute Nucleated RBC (0.00-0.01) x10^3u/L Lymphocytes % (24.0-44.0) % Monocytes % (0.0-12.0) % Eosinophils % (0.00-5.0) % Basophils % (0.0-0.4) % Absolute Granulocytes (1.4-6.9) x10^3/uL Segmented Neutrophils (36.0-66.0) % Band Neutrophils (0.0-2.0) % Lymphocytes (Manual) (24-44) % Monocytes (Manual) (0.0-12.0) % Basophils # (0-0.4) x10^3/uL Platelet Estimate (NORMAL) RBC Morphology PT (9.4-12.5) SECONDS INR (0.8-3.0) APTT (25.1-36.5) SECONDS D-Dimer (0.0-0.50) mg/L Puncture Site pCO2 (35-45) mmHg pO2 (75-100) mmHg pO2/FiO2 Ratio % Base Excess (-2.0-2.0) O2 Saturation (94-100) g/dF ABG pH (7.35-7.45) ABG HCO3 (22-28) ABG O2 Sat (Measured) (95-100) % Сергей Test VBG pH (7.32-7.42) VBG pCO2 at Pat Temp (42-55) mm/Hg VBG pO2 at Pat Temp (25-40) mm/Hg VBG HCO3 (22-28) meq/L VBG O2 Sat ([place]) (95-100) VBG Base Excess (-2.0-2.0) VBG Hemoglobin VBG Carboxyhemoglobin (0.0-6.9) % T HGB A-a Gradient a/A Ratio Hemoglobin Carboxyhemoglobin (0.0-6.9) % THgb Methemoglobin (1.4-1.5) % POC Potassium (3.5-5.1) Temperature C POC O2 Flow Rate % Sodium (137-145) mmol/L Sodium Direct (138-146) mmol/L Potassium (3.5-4.9) mmol/L Chloride (98-109) mmol/L Carbon Dioxide (24-29) mmol/L Anion Gap (5-15) MEQ/L BUN (7-17) mg/dL Venous BUN (8-26) mg/dL Creatinine (0.6-1.3) mg/dL Estimated GFR ML/MIN Glucose (70-105) mg/dL POC Glucometer 111 H (74 to 106) mg/dL Lactic Acid 1.8 (0.4-2.0) Calcium (8.4-10.2) mg/dL Ionized Calcium (1.12-1.32) mmol/L Total Bilirubin (0.2-1.3) mg/dL AST (14-36) U/L ALT (0-35) U/L Alkaline Phosphatase (38-126) U/L Troponin (0.00-0.03) ng/mL Troponin I < 0.012 (0.000-0.034) ng/mL NT-Pro-B Natriuret Pep (0-900) pg/mL Serum Total Protein (6.3-8.2) g/dL Albumin (3.5-5.0) g/dL Amylase (30-110) U/L Lipase (23-300) U/L Procalcitonin (0.030-0.080) ng/mL Urinalys Dipstick Clnc Urine Color (YELLOW) Urine Appearance (CLEAR) Urine pH (5-6) Ur Specific [place] (1.005-1.025) POC Urine Protein Conf (Negative) Urine Ketones (NEGATIVE) Urine Nitrite (NEGATIVE) Urine Bilirubin (NEGATIVE) Urine Urobilinogen (0-1) mg/dL Urine Leukocytes (NEGATIVE) Urine WBC (Auto) (0-5) /HPF Urine RBC (Auto) (0-2) /HPF U Hyaline Cast (Auto) (0-2) /LPF U Epithel Cells (Auto) (FEW) /HPF Urine Bacteria (Auto) (NEGATIVE) /HPF Urine RBC (0-5) Edin/ul Urine Mucus (Auto) (NEGATIVE) /HPF Ur Culture Indicated? Urine Glucose (NEGATIVE) mg/dL Urine Opiates Level (NEGATIVE) Ur Methadone (NEGATIVE) Urine Barbiturates (NEGATIVE) Ur Phencyclidine (PCP) (NEGATIVE) Urine Amphetamine (NEGATIVE) U Benzodiazepine Level (NEGATIVE) Urine Cocaine (NEGATIVE) Urine Marijuana (THC) (NEGATIVE) Influenza Type A Ag (NEGATIVE) Influenza Type B Ag (NEGATIVE) RSV (PCR) (Negative) SARS-CoV-2 (PCR) (NEGATIVE) 02/07/22 02/07/22 02/08/22 Range/Units 20:10 20:56 03:19 WBC (4.0-10.5) x10^3/uL RBC (4.1-5.4) x10^6/uL Hgb (12.0-16.0) g/dL Hct (35-47) % MCV (78-100) fL MCH (26-32) pg MCHC (32-36) g/dL RDW (11.5-14.0) % Plt Count (150-450) x10^3/uL MPV (7.5-11.0) fL Gran % (36.0-66.0) % Immature Gran % (Auto) (0.00-0.4) % Nucleat RBC Rel Count (0.00-0.1) % Eos # (Auto) (0-0.5) x10^3/uL Immature Gran # (Auto) (0.00-0.03) x10^3u/L Absolute Lymphs (auto) (1.0-4.6) x10^3/uL Absolute Monos (auto) (0.0-1.3) x10^3/uL Absolute Nucleated RBC (0.00-0.01) x10^3u/L Lymphocytes % (24.0-44.0) % Monocytes % (0.0-12.0) % Eosinophils % (0.00-5.0) % Basophils % (0.0-0.4) % Absolute Granulocytes (1.4-6.9) x10^3/uL Segmented Neutrophils (36.0-66.0) % Band Neutrophils (0.0-2.0) % Lymphocytes (Manual) (24-44) % Monocytes (Manual) (0.0-12.0) % Basophils # (0-0.4) x10^3/uL Platelet Estimate (NORMAL) RBC Morphology PT (9.4-12.5) SECONDS INR (0.8-3.0) APTT (25.1-36.5) SECONDS D-Dimer (0.0-0.50) mg/L Puncture Site LEFT RADIAL pCO2 64 H* (35-45) mmHg pO2 88 (75-100) mmHg pO2/FiO2 Ratio % Base Excess -2.7 L (-2.0-2.0) O2 Saturation 94.6 (94-100) g/dF ABG pH 7.22 L* (7.35-7.45) ABG HCO3 26.2 (22-28) ABG O2 Sat (Measured) 97.8 (95-100) % Сергей Test YES VBG pH (7.32-7.42) VBG pCO2 at Pat Temp (42-55) mm/Hg VBG pO2 at Pat Temp (25-40) mm/Hg VBG HCO3 (22-28) meq/L VBG O2 Sat ([place]) (95-100) VBG Base Excess (-2.0-2.0) VBG Hemoglobin VBG Carboxyhemoglobin (0.0-6.9) % T HGB A-a Gradient 545 a/A Ratio 0.14 Hemoglobin 13.0 Carboxyhemoglobin 2.1 (0.0-6.9) % THgb Methemoglobin 1.3 L (1.4-1.5) % POC Potassium (3.5-5.1) Temperature 37.0 C POC O2 Flow Rate 100 % Sodium (137-145) mmol/L Sodium Direct (138-146) mmol/L Potassium 4.2 (3.5-4.9) mmol/L Chloride (98-109) mmol/L Carbon Dioxide (24-29) mmol/L Anion Gap (5-15) MEQ/L BUN (7-17) mg/dL Venous BUN (8-26) mg/dL Creatinine (0.6-1.3) mg/dL Estimated GFR ML/MIN Glucose (70-105) mg/dL POC Glucometer 131 H (74 to 106) mg/dL Lactic Acid (0.4-2.0) Calcium (8.4-10.2) mg/dL Ionized Calcium (1.12-1.32) mmol/L Total Bilirubin (0.2-1.3) mg/dL AST (14-36) U/L ALT (0-35) U/L Alkaline Phosphatase (38-126) U/L Troponin (0.00-0.03) ng/mL Troponin I < 0.012 (0.000-0.034) ng/mL NT-Pro-B Natriuret Pep (0-900) pg/mL Serum Total Protein (6.3-8.2) g/dL Albumin (3.5-5.0) g/dL Amylase (30-110) U/L Lipase (23-300) U/L Procalcitonin (0.030-0.080) ng/mL Urinalys Dipstick Clnc Urine Color (YELLOW) Urine Appearance (CLEAR) Urine pH (5-6) Ur Specific [place] (1.005-1.025) POC Urine Protein Conf (Negative) Urine Ketones (NEGATIVE) Urine Nitrite (NEGATIVE) Urine Bilirubin (NEGATIVE) Urine Urobilinogen (0-1) mg/dL Urine Leukocytes (NEGATIVE) Urine WBC (Auto) (0-5) /HPF Urine RBC (Auto) (0-2) /HPF U Hyaline Cast (Auto) (0-2) /LPF U Epithel Cells (Auto) (FEW) /HPF Urine Bacteria (Auto) (NEGATIVE) /HPF Urine RBC (0-5) Edin/ul Urine Mucus (Auto) (NEGATIVE) /HPF Ur Culture Indicated? Urine Glucose (NEGATIVE) mg/dL Urine Opiates Level (NEGATIVE) Ur Methadone (NEGATIVE) Urine Barbiturates (NEGATIVE) Ur Phencyclidine (PCP) (NEGATIVE) Urine Amphetamine (NEGATIVE) U Benzodiazepine Level (NEGATIVE) Urine Cocaine (NEGATIVE) Urine Marijuana (THC) (NEGATIVE) Influenza Type A Ag (NEGATIVE) Influenza Type B Ag (NEGATIVE) RSV (PCR) (Negative) SARS-CoV-2 (PCR) (NEGATIVE) 02/08/22 02/08/22 02/08/22 Range/Units 04:52 04:52 05:19 WBC 15.4 H (4.0-10.5) x10^3/uL RBC 3.96 L (4.1-5.4) x10^6/uL Hgb 12.5 (12.0-16.0) g/dL Hct 40.2 (35-47) % MCV 101.5 H (78-100) fL MCH 31.6 (26-32) pg MCHC 31.1 L (32-36) g/dL RDW 15.8 H (11.5-14.0) % Plt Count 180 (150-450) x10^3/uL MPV 8.6 (7.5-11.0) fL Gran % 87.5 H (36.0-66.0) % Immature Gran % (Auto) 1.0 H (0.00-0.4) % Nucleat RBC Rel Count 0.0 (0.00-0.1) % Eos # (Auto) 0.02 (0-0.5) x10^3/uL Immature Gran # (Auto) 0.15 H (0.00-0.03) x10^3u/L Absolute Lymphs (auto) 1.20 (1.0-4.6) x10^3/uL Absolute Monos (auto) 0.53 (0.0-1.3) x10^3/uL Absolute Nucleated RBC 0.00 (0.00-0.01) x10^3u/L Lymphocytes % 7.8 L (24.0-44.0) % Monocytes % 3.4 (0.0-12.0) % Eosinophils % 0.1 (0.00-5.0) % Basophils % 0.2 (0.0-0.4) % Absolute Granulocytes 13.51 H (1.4-6.9) x10^3/uL Segmented Neutrophils (36.0-66.0) % Band Neutrophils (0.0-2.0) % Lymphocytes (Manual) (24-44) % Monocytes (Manual) (0.0-12.0) % Basophils # 0.03 (0-0.4) x10^3/uL Platelet Estimate (NORMAL) RBC Morphology PT (9.4-12.5) SECONDS INR (0.8-3.0) APTT (25.1-36.5) SECONDS D-Dimer (0.0-0.50) mg/L Puncture Site pCO2 (35-45) mmHg pO2 (75-100) mmHg pO2/FiO2 Ratio 100.0 % Base Excess (-2.0-2.0) O2 Saturation (94-100) g/dF ABG pH (7.35-7.45) ABG HCO3 (22-28) ABG O2 Sat (Measured) (95-100) % Сергей Test VBG pH 7.23 L* (7.32-7.42) VBG pCO2 at Pat Temp 60 H (42-55) mm/Hg VBG pO2 at Pat Temp 82 H (25-40) mm/Hg VBG HCO3 25.1 (22-28) meq/L VBG O2 Sat ([place]) 96.8 (95-100) VBG Base Excess -3.4 L (-2.0-2.0) VBG Hemoglobin 12.9 VBG Carboxyhemoglobin 2.3 (0.0-6.9) % T HGB A-a Gradient a/A Ratio Hemoglobin Carboxyhemoglobin (0.0-6.9) % THgb Methemoglobin (1.4-1.5) % POC Potassium 4.2 (3.5-5.1) Temperature C POC O2 Flow Rate % Sodium (137-145) mmol/L Sodium Direct (138-146) mmol/L Potassium (3.5-4.9) mmol/L Chloride (98-109) mmol/L Carbon Dioxide (24-29) mmol/L Anion Gap (5-15) MEQ/L BUN (7-17) mg/dL Venous BUN (8-26) mg/dL Creatinine (0.6-1.3) mg/dL Estimated GFR ML/MIN Glucose (70-105) mg/dL POC Glucometer (74 to 106) mg/dL Lactic Acid 0.8 (0.4-2.0) Calcium (8.4-10.2) mg/dL Ionized Calcium (1.12-1.32) mmol/L Total Bilirubin (0.2-1.3) mg/dL AST (14-36) U/L ALT (0-35) U/L Alkaline Phosphatase (38-126) U/L Troponin (0.00-0.03) ng/mL Troponin I (0.000-0.034) ng/mL NT-Pro-B Natriuret Pep (0-900) pg/mL Serum Total Protein (6.3-8.2) g/dL Albumin (3.5-5.0) g/dL Amylase (30-110) U/L Lipase (23-300) U/L Procalcitonin (0.030-0.080) ng/mL Urinalys Dipstick Clnc Urine Color (YELLOW) Urine Appearance (CLEAR) Urine pH (5-6) Ur Specific [place] (1.005-1.025) POC Urine Protein Conf (Negative) Urine Ketones (NEGATIVE) Urine Nitrite (NEGATIVE) Urine Bilirubin (NEGATIVE) Urine Urobilinogen (0-1) mg/dL Urine Leukocytes (NEGATIVE) Urine WBC (Auto) (0-5) /HPF Urine RBC (Auto) (0-2) /HPF U Hyaline Cast (Auto) (0-2) /LPF U Epithel Cells (Auto) (FEW) /HPF Urine Bacteria (Auto) (NEGATIVE) /HPF Urine RBC (0-5) Edin/ul Urine Mucus (Auto) (NEGATIVE) /HPF Ur Culture Indicated? Urine Glucose (NEGATIVE) mg/dL Urine Opiates Level (NEGATIVE) Ur Methadone (NEGATIVE) Urine Barbiturates (NEGATIVE) Ur Phencyclidine (PCP) (NEGATIVE) Urine Amphetamine (NEGATIVE) U Benzodiazepine Level (NEGATIVE) Urine Cocaine (NEGATIVE) Urine Marijuana (THC) (NEGATIVE) Influenza Type A Ag (NEGATIVE) Influenza Type B Ag (NEGATIVE) RSV (PCR) (Negative) SARS-CoV-2 (PCR) (NEGATIVE) 02/08/22 02/08/22 Range/Units 05:19 07:08 WBC (4.0-10.5) x10^3/uL RBC (4.1-5.4) x10^6/uL Hgb (12.0-16.0) g/dL Hct (35-47) % MCV (78-100) fL MCH (26-32) pg MCHC (32-36) g/dL RDW (11.5-14.0) % Plt Count (150-450) x10^3/uL MPV (7.5-11.0) fL Gran % (36.0-66.0) % Immature Gran % (Auto) (0.00-0.4) % Nucleat RBC Rel Count (0.00-0.1) % Eos # (Auto) (0-0.5) x10^3/uL Immature Gran # (Auto) (0.00-0.03) x10^3u/L Absolute Lymphs (auto) (1.0-4.6) x10^3/uL Absolute Monos (auto) (0.0-1.3) x10^3/uL Absolute Nucleated RBC (0.00-0.01) x10^3u/L Lymphocytes % (24.0-44.0) % Monocytes % (0.0-12.0) % Eosinophils % (0.00-5.0) % Basophils % (0.0-0.4) % Absolute Granulocytes (1.4-6.9) x10^3/uL Segmented Neutrophils (36.0-66.0) % Band Neutrophils (0.0-2.0) % Lymphocytes (Manual) (24-44) % Monocytes (Manual) (0.0-12.0) % Basophils # (0-0.4) x10^3/uL Platelet Estimate (NORMAL) RBC Morphology PT (9.4-12.5) SECONDS INR (0.8-3.0) APTT (25.1-36.5) SECONDS D-Dimer (0.0-0.50) mg/L Puncture Site pCO2 (35-45) mmHg pO2 (75-100) mmHg pO2/FiO2 Ratio % Base Excess (-2.0-2.0) O2 Saturation (94-100) g/dF ABG pH (7.35-7.45) ABG HCO3 (22-28) ABG O2 Sat (Measured) (95-100) % Сергей Test VBG pH (7.32-7.42) VBG pCO2 at Pat Temp (42-55) mm/Hg VBG pO2 at Pat Temp (25-40) mm/Hg VBG HCO3 (22-28) meq/L VBG O2 Sat ([place]) (95-100) VBG Base Excess (-2.0-2.0) VBG Hemoglobin VBG Carboxyhemoglobin (0.0-6.9) % T HGB A-a Gradient a/A Ratio Hemoglobin Carboxyhemoglobin (0.0-6.9) % THgb Methemoglobin (1.4-1.5) % POC Potassium (3.5-5.1) Temperature C POC O2 Flow Rate % Sodium 133 L (137-145) mmol/L Sodium Direct (138-146) mmol/L Potassium 4.1 (3.5-4.9) mmol/L Chloride 102 (98-109) mmol/L Carbon Dioxide 25 (24-29) mmol/L Anion Gap 9.8 (5-15) MEQ/L BUN 32 H (7-17) mg/dL Venous BUN (8-26) mg/dL Creatinine 1.10 H (0.6-1.3) mg/dL Estimated GFR 53.8 ML/MIN Glucose 125 H (70-105) mg/dL POC Glucometer 134 H (74 to 106) mg/dL Lactic Acid (0.4-2.0) Calcium 7.0 L (8.4-10.2) mg/dL Ionized Calcium (1.12-1.32) mmol/L Total Bilirubin 0.70 (0.2-1.3) mg/dL AST 20 (14-36) U/L ALT 15 (0-35) U/L Alkaline Phosphatase 81 (38-126) U/L Troponin (0.00-0.03) ng/mL Troponin I (0.000-0.034) ng/mL NT-Pro-B Natriuret Pep (0-900) pg/mL Serum Total Protein 6.1 L (6.3-8.2) g/dL Albumin 3.2 L (3.5-5.0) g/dL Amylase (30-110) U/L Lipase (23-300) U/L Procalcitonin (0.030-0.080) ng/mL Urinalys Dipstick Clnc Urine Color (YELLOW) Urine Appearance (CLEAR) Urine pH (5-6) Ur Specific [place] (1.005-1.025) POC Urine Protein Conf (Negative) Urine Ketones (NEGATIVE) Urine Nitrite (NEGATIVE) Urine Bilirubin (NEGATIVE) Urine Urobilinogen (0-1) mg/dL Urine Leukocytes (NEGATIVE) Urine WBC (Auto) (0-5) /HPF Urine RBC (Auto) (0-2) /HPF U Hyaline Cast (Auto) (0-2) /LPF U Epithel Cells (Auto) (FEW) /HPF Urine Bacteria (Auto) (NEGATIVE) /HPF Urine RBC (0-5) Ed[place]/ul Urine Mucus (Auto) (NEGATIVE) /HPF Ur Culture Indicated? Urine Glucose (NEGATIVE) mg/dL Urine Opiates Level (NEGATIVE) Ur Methadone (NEGATIVE) Urine Barbiturates (NEGATIVE) Ur Phencyclidine (PCP) (NEGATIVE) Urine Amphetamine (NEGATIVE) U Benzodiazepine Level (NEGATIVE) Urine Cocaine (NEGATIVE) Urine Marijuana (THC) (NEGATIVE) Influenza Type A Ag (NEGATIVE) Influenza Type B Ag (NEGATIVE) RSV (PCR) (Negative) SARS-CoV-2 (PCR) (NEGATIVE) Microbiology 02/07/22 13:00 Blood Culture Gram Stain - Final Blood Accuchecks Date 02/08/22 Time 07:20 - Radiology Impressions Radiology Exams & Impressions: Radiology Procedures Category Date Time Status ABDOMEN AND PELVIS W/0 CONTRAS [CT] Stat Exams 02/07/22 11:41 Completed CHEST WITHOUT CONTRAST [CT] Stat Exams 02/07/22 11:36 Completed - Other Procedures and Tests Respiratory Therapy 02/07/22 13:41 Oxygen Oxymizer LPM 10 lpm 02/07/22 18:19 Respiratory Therapy Assessment DAILY 02/08/22 04:15 BiPap/CPAP ROUTINE Assessment/Plan (1) COPD exacerbation Current Visit: Yes Status: Acute Assessment & Plan: I have added steroids IV. On zosyn/flagyl day #2. If no improvement and next ABG comes back poor, will consult pulmonology. Code(s): J44.1 - CHRONIC OBSTRUCTIVE PULMONARY DISEASE W (ACUTE) EXACERBATION (2) Left lower lobe pneumonia Current Visit: Yes Status: Acute Qualifiers: Aspiration pneumonia type: unspecified Code(s): J18.9 - PNEUMONIA, UNSPECIFIED ORGANISM (3) Sepsis Current Visit: Yes Status: Acute Qualifiers: Sepsis type: Streptococcus, unspecified Sepsis acute organ dysfunction status: without acute organ dysfunction Qualified Code(s): A40.9 - Streptococcal sepsis, unspecified (4) UTI (urinary tract infection) Current Visit: Yes Status: Acute Qualifiers: Urinary tract infection type: acute cystitis Hematuria presence: without hematuria Qualified Code(s): N30.00 - Acute cystitis without hematuria Code(s): N39.0 - URINARY TRACT INFECTION, SITE NOT SPECIFIED
[2022-02-08] MEDS: solu-MEDROL 125 MG, Sterile H2O 10 ml 2 ML IV SCH ×6 (09:26→23:43)
[2022-02-08 09:42] LABS: A-aADO2 473; ABG HEMOGLOBIN 12.9; ABG POTASSIUM 4.2 (3.5-5.1); ARTERIAL BLD GAS O2 SATURATION 99.9 % (95-100); ARTERIAL BLD GAS TIDAL VOLUME 550 cc; ARTERIAL BLOOD GAS BASE EXCESS -3.1 (-2.0-2.0); ARTERIAL BLOOD GAS FIO2 100 %; ARTERIAL BLOOD GAS PO2 156 mmHg (75-100); ARTERIAL BLOOD GAS VENT MODE BiPAP; CARBOXYHEMOGLOBIN 1.3 % THgb (0.0-6.9); HCO3- 26.2 (22-28); HGB O2 SAT 97.7 g/dF (94-100)
[2022-02-08 09:44] LABS: ARTERIAL BLOOD GAS PCO2 67 mmHg (35-45)
[2022-02-08 09:45] LABS: ABG SITE LEFT RADIAL; ALLEN TEST OK? YES; ARTERIAL BLOOD GAS VENT RATE 20 /MIN
[2022-02-08] MEDS ORDERED: NON-FORMULARY ITEM (Escitalopram Oxalate [Lexapro] 20 MG Tablet) PO SCH (10:00)
[2022-02-08] MEDS ORDERED: NON-FORMULARY ITEM (Bupropion Hcl [Wellbutrin Xl] 300 MG Tab.Er.24h) PO SCH (10:00)
[2022-02-08] MEDS: TORAdol 30 mg Injection IV PRN (10:51)
[2022-02-08] MEDS: Lexapro PO SCH (10:51)
[2022-02-08] MEDS: Wellbutrin XL 150 MG PO SCH (10:51)
[2022-02-08] MEDS: ELIQUIS 2.5 MG TABLET PO SCH ×2 (10:51→22:25)
[2022-02-08] MEDS: Requip 0.5 MG PO SCH ×2 (10:52→22:25)
--- NOTE | 2022-02-08 14:06 | CONS ---
CONSULT DATE: 02/08/2022 REASON FOR CONSULT: Respiratory failure, community-acquired pneumonia. HISTORY: Fifi Steen is a 62-year-old woman with history of chronic obstructive pulmonary disease who presented to [facility] with left sided pleuritic pain, cough as well as shortness of breath. The patient reported streaky amount of hemoptysis as well. She had a CT chest performed that showed a left lower lobe consolidation. She has been started on antibiotics. Arterial blood gases obtained showed uncompensated hypercapnic respiratory failure. The patient was placed on BiPAP. She has been receiving Dilaudid PRN for pain. She was also started on broad spectrum antibiotics. I received a call this morning requesting consultation. At the time of my evaluation, the patient is drowsy attributed to 1 mg of Dilaudid received about 30 minutes ago. PAST MEDICAL HISTORY: Positive for history of chronic obstructive pulmonary disease, gastroesophageal reflux disease. Her medication list also indicates she is on anticoagulation with Eliquis. Anxiety, depression, vertigo. PAST SURGICAL HISTORY: She recently had hysterectomy. Prior history of cholecystectomy. PERSONAL AND SOCIAL HISTORY: The patient has been a smoker. MEDICATIONS: Home and current medications are reviewed. ALLERGIES: ALLERGIES NOTED. PHYSICAL EXAMINATION: An elderly woman resting comfortably on BiPAP, afebrile, heart rate 64, blood pressure 124/70, saturating 100%. HEENT: Normocephalic. BiPAP mask in place. Oral exam limited. NECK: Supple. CVS: First and second heart sounds with bradycardia. RESPIRATORY: Shows diminished breath sounds, crackles are heard at lung base left lower lobe. ABDOMEN: Soft. EXTREMITIES: No edema is noted. LABORATORY DATA AND TESTS: Labs reviewed. Chest x-ray and CT chest were reviewed as well. ASSESSMENT: This is a 62-year-old woman admitted with: 1) Acute hypercapnic decompensated respiratory failure on noninvasive ventilation. 2) Acute hypoxemia. 3) Left lower lobe community acquired pneumonia. 4) Chronic obstructive pulmonary disease with exacerbation. 5) Streaky hemoptysis likely from pneumonia and being on anticoagulation. 6) Anticoagulation etiology with comorbidities listed above. RECOMMENDATIONS: 1) I agree with present treatment, continue noninvasive ventilation, continue analgesics if needed. 2) Pulmonary toilet. 3) I agree with broad spectrum IV antibiotics. 4) May reduce steroids to prevent worsening of respiratory acidosis. 5) Pulmonary function test at a later point. 6) Chest x-ray will have to be followed until complete clearing of left lower lobe pneumonia is documented. 7) Need for smoking cessation will have to addressed upon discharge as well. I agree with other supportive care. I will continue to follow. Thank you for allowing me to participate in the care of Miss Fifi Steen.
[2022-02-08] MEDS ORDERED: solu-MEDROL ONE (16:52)
[2022-02-08] MEDS: Seroquel 100 MG PO SCH (22:25)
[2022-02-09] MEDS: FLAGYL 500 MG IVPB 500 MG/100 ML BAG IV SCH ×4 (02:57→21:47)
[2022-02-09 04:39] LABS: Basophil (Absolute #) 0.04 x10^3/uL (0-0.4); Eosinophil (Absolute #) 0 x10^3/uL (0-0.5); Hematocrit 40.8 % (35-47); Hemoglobin 12.3 g/dL (12.0-16.0); Lymphocyte (Absolute #) 0.43 x10^3/uL (1.0-4.6); Lymphocytes % 3.8 % (24.0-44.0); Mean Cell Volume 103.6 fL (78-100); Mean Corpuscular Hemoglobin 31.2 pg (26-32); Mean Corpuscular Hgb Concent. 30.1 g/dL (32-36); Mean Platelet Volume 8.7 fL (7.5-11.0); Monocyte (Absolute #) 0.23 x10^3/uL (0.0-1.3); Neutrophil % 91.3 % (36.0-66.0); Platelet Count 147 x10^3/uL (150-450); Red Blood Count 3.94 x10^6/uL (4.1-5.4); Red Cell Distribution Width 15.9 % (11.5-14.0); White Blood Count 11.4 x10^3/uL (4.0-10.5)
[2022-02-09] MEDS: Sodium Chloride 0.9% 1000 ML 1,000 ML IV SCH ×4 (05:11→22:42)
[2022-02-09] MEDS: PIPERACILLIN/TAZOBACTAM 3.375 GM in Sodium Chloride 100ML MINI-BAG PLUS 100 ML IV SCH ×4 (05:15→23:54)
[2022-02-09] MEDS: solu-MEDROL 125 MG, Sterile H2O 10 ml 2 ML IV SCH ×2 (05:15)
[2022-02-09 05:17] LABS: ALKALINE PHOSPHATASE 77 U/L (38-126); ANION GAP 8.3 MEQ/L (5-15); BLOOD UREA NITROGEN 22 mg/dL (7-17); CHLORIDE 107 mmol/L (98-107); Calcium 7.5 mg/dL (8.4-10.2); Carbon Dioxide 25 mmol/L (22-30); Creatinine 1 0.61 mg/dL (0.52-1.04); EST GLOMERULAR FILTRATION RATE > 60.0 ML/MIN; Glucose 247 mg/dL (74-106); Potassium 4.2 mmol/L (3.5-5.1); SGOT/AST 31 U/L (14-36); SGPT/ALT 16 U/L (0-35); SODIUM 137 mmol/L (137-145); Total Protein 6.1 g/dL (6.3-8.2)
[2022-02-09 05:26] LABS: A-aADO2 214; ABG HEMOGLOBIN 12.8; ABG POTASSIUM 4.5 (3.5-5.1); ARTERIAL BLD GAS O2 SATURATION 99.9 % (95-100); ARTERIAL BLD GAS TIDAL VOLUME 550 cc; ARTERIAL BLOOD GAS BASE EXCESS -3.4 (-2.0-2.0); ARTERIAL BLOOD GAS FIO2 60 %; ARTERIAL BLOOD GAS PO2 139 mmHg (75-100); CARBOXYHEMOGLOBIN 1.2 % THgb (0.0-6.9); HCO3- 25.1 (22-28); HGB O2 SAT 97.6 g/dF (94-100); Methhemoglobin 1.2 % (1.4-1.5)
[2022-02-09 05:27] LABS: ARTERIAL BLOOD GAS pH 7.23 (7.35-7.45)
[2022-02-09 05:28] LABS: ABG SITE RIGHT BRACHIAL; ARTERIAL BLOOD GAS PCO2 60 mmHg (35-45); ARTERIAL BLOOD GAS VENT MODE AVAPS; ARTERIAL BLOOD GAS VENT RATE 14 /MIN
[2022-02-09] MEDS: DUONEB 0.5-3 MG/3 ml Neb IH SCH ×6 (05:55→22:00)
[2022-02-09 07:12] LABS: Slide Review 1 YES
[2022-02-09] MEDS: TORAdol 30 mg Injection IV PRN (07:47)
[2022-02-09] MEDS: ELIQUIS 2.5 MG TABLET PO SCH ×2 (09:25→21:47)
[2022-02-09] MEDS: Lexapro PO SCH (09:25)
[2022-02-09] MEDS: Requip 0.5 MG PO SCH ×2 (09:25→21:47)
[2022-02-09] MEDS: Wellbutrin XL 150 MG PO SCH (09:26)
--- NOTE | 2022-02-09 12:03 | PCM.NOTE ---
Date and Time: 02/09/22 1200 Subjective Assessment: On Oximizer now, was able to come off Bipap to eat and maintained O2. Conversant. Not passing gas and no BMs, but pt thinks it's because she's not been eating much. Tends to have diarrhea normally. At home is on [place] per pain mgmt. Toradol here for pain relief is helping somewhat. - Review of Systems Constitutional: No Fever Respiratory: Short Of Breath Objective Exam General Appearance: no apparent distress, alert, other (on oximizer) Neurologic Exam: oriented x 3, cooperative, normal mood/affect Skin Exam: normal color, warm, dry, No rash Eye Exam: eyes nml inspection Ears, Nose, Throat Exam: moist mucous membranes Neck Exam: normal inspection Respiratory Exam: diminished breath sounds (poor air exchange), wheezing (scattered), No crackles/rales, No rhonchi Cardiovascular Exam: regular rate/rhythm, normal heart sounds, No murmur Gastrointestinal/Abdomen Exam: soft, No normal bowel sounds (hypoactive), No tenderness, No distention, No mass, No guarding, No rebound Extremity Exam: No pedal edema, No swelling OBJECTIVE DATA Vital Signs: Vital Signs - 24 hr Temp Pulse Resp BP BP Pulse Ox 02/09/22 11:00 74 18 97 02/09/22 08:00 97.5 F 63 16 137/82 97 02/09/22 07:12 65 20 97 02/09/22 06:00 70 14 130/85 95 02/09/22 04:00 97.1 F 68 16 112/74 98 02/09/22 02:00 97.1 F 55 L 14 107/64 99 02/09/22 00:00 97.1 F 57 L 15 103/61 98 02/08/22 22:26 74 14 98 02/08/22 22:00 78 12 113/69 97 02/08/22 20:00 74 02/08/22 19:42 97.1 F 61 26 H 111/75 99 02/08/22 18:55 57 L 26 H 99 02/08/22 18:00 58 L 26 H 104/67 99 02/08/22 16:00 60 26 H 100/66 100 02/08/22 15:05 61 26 H 98 02/08/22 14:00 61 26 H 92/61 99 02/08/22 13:00 64 26 H 92/62 112/81 99 Pain Assessment - Last Documented Pain Intensity 4 Pain Scale Used 0-10 Pain Scale Intake and Output: Intake & Output 02/07/22 02/08/22 02/09/22 02/10/22 11:59 11:59 11:59 11:59 Intake Total 1244 5625 Output Total 600 2100 Balance 644 3525 Weight 106.141 kg 106.3 kg Lab Results: Lab Results-Last 24 Hours 02/08/22 02/08/22 02/08/22 Range/Units 12:09 15:57 20:54 WBC (4.0-10.5) x10^3/uL RBC (4.1-5.4) x10^6/uL Hgb (12.0-16.0) g/dL Hct (35-47) % MCV (78-100) fL MCH (26-32) pg MCHC (32-36) g/dL RDW (11.5-14.0) % Plt Count (150-450) x10^3/uL MPV (7.5-11.0) fL Gran % (36.0-66.0) % Immature Gran % (Auto) (0.00-0.4) % Nucleat RBC Rel Count (0.00-0.1) % Eos # (Auto) (0-0.5) x10^3/uL Immature Gran # (Auto) (0.00-0.03) x10^3u/L Absolute Lymphs (auto) (1.0-4.6) x10^3/uL Absolute Monos (auto) (0.0-1.3) x10^3/uL Absolute Nucleated RBC (0.00-0.01) x10^3u/L Lymphocytes % (24.0-44.0) % Monocytes % (0.0-12.0) % Eosinophils % (0.00-5.0) % Basophils % (0.0-0.4) % Absolute Granulocytes (1.4-6.9) x10^3/uL Basophils # (0-0.4) x10^3/uL Puncture Site pCO2 (35-45) mmHg pO2 (75-100) mmHg Base Excess (-2.0-2.0) O2 Saturation (94-100) g/dF ABG pH (7.35-7.45) ABG HCO3 (22-28) ABG O2 Sat (Measured) (95-100) % Сергей Test A-a Gradient a/A Ratio Hemoglobin Carboxyhemoglobin (0.0-6.9) % THgb Methemoglobin (1.4-1.5) % Temperature C POC O2 Flow Rate % Vent Mode Vent Rate /MIN Tidal Volume cc PEEP cmH2O Sodium (137-145) mmol/L Potassium (3.5-5.1) mmol/L Chloride (98-107) mmol/L Carbon Dioxide (22-30) mmol/L Anion Gap (5-15) MEQ/L BUN (7-17) mg/dL Creatinine (0.52-1.04) mg/dL Estimated GFR ML/MIN Glucose (74-106) mg/dL POC Glucometer 117 H 127 H 141 H (74 to 106) mg/dL Calcium (8.4-10.2) mg/dL Total Bilirubin (0.2-1.3) mg/dL AST (14-36) U/L ALT (0-35) U/L Alkaline Phosphatase (38-126) U/L Serum Total Protein (6.3-8.2) g/dL Albumin (3.5-5.0) g/dL Procalcitonin (0.030-0.080) ng/mL Slides for Path Review 02/09/22 02/09/22 02/09/22 Range/Units 04:00 04:00 04:25 WBC 11.4 H (4.0-10.5) x10^3/uL RBC 3.94 L (4.1-5.4) x10^6/uL Hgb 12.3 (12.0-16.0) g/dL Hct 40.8 (35-47) % MCV 103.6 H (78-100) fL MCH 31.2 (26-32) pg MCHC 30.1 L (32-36) g/dL RDW 15.9 H (11.5-14.0) % Plt Count 147 L (150-450) x10^3/uL MPV 8.7 (7.5-11.0) fL Gran % 91.3 H (36.0-66.0) % Immature Gran % (Auto) 2.5 H (0.00-0.4) % Nucleat RBC Rel Count 0.0 (0.00-0.1) % Eos # (Auto) 0 (0-0.5) x10^3/uL Immature Gran # (Auto) 0.28 H (0.00-0.03) x10^3u/L Absolute Lymphs (auto) 0.43 L (1.0-4.6) x10^3/uL Absolute Monos (auto) 0.23 (0.0-1.3) x10^3/uL Absolute Nucleated RBC 0.00 (0.00-0.01) x10^3u/L Lymphocytes % 3.8 L (24.0-44.0) % Monocytes % 2.0 (0.0-12.0) % Eosinophils % 0.0 (0.00-5.0) % Basophils % 0.4 (0.0-0.4) % Absolute Granulocytes 10.40 H (1.4-6.9) x10^3/uL Basophils # 0.04 (0-0.4) x10^3/uL Puncture Site pCO2 (35-45) mmHg pO2 (75-100) mmHg Base Excess (-2.0-2.0) O2 Saturation (94-100) g/dF ABG pH (7.35-7.45) ABG HCO3 (22-28) ABG O2 Sat (Measured) (95-100) % Сергей Test A-a Gradient a/A Ratio Hemoglobin Carboxyhemoglobin (0.0-6.9) % THgb Methemoglobin (1.4-1.5) % Temperature C POC O2 Flow Rate % Vent Mode Vent Rate /MIN Tidal Volume cc PEEP cmH2O Sodium 137 (137-145) mmol/L Potassium 4.2 (3.5-5.1) mmol/L Chloride 107 (98-107) mmol/L Carbon Dioxide 25 (22-30) mmol/L Anion Gap 8.3 (5-15) MEQ/L BUN 22 H (7-17) mg/dL Creatinine 0.61 (0.52-1.04) mg/dL Estimated GFR > 60.0 ML/MIN Glucose 247 H (74-106) mg/dL POC Glucometer (74 to 106) mg/dL Calcium 7.5 L (8.4-10.2) mg/dL Total Bilirubin 0.40 (0.2-1.3) mg/dL AST 31 (14-36) U/L ALT 16 (0-35) U/L Alkaline Phosphatase 77 (38-126) U/L Serum Total Protein 6.1 L (6.3-8.2) g/dL Albumin 3.0 L (3.5-5.0) g/dL Procalcitonin 9.790 H* (0.030-0.080) ng/mL Slides for Path Review YES 02/09/22 02/09/22 02/09/22 Range/Units 05:16 07:04 11:24 WBC (4.0-10.5) x10^3/uL RBC (4.1-5.4) x10^6/uL Hgb (12.0-16.0) g/dL Hct (35-47) % MCV (78-100) fL MCH (26-32) pg MCHC (32-36) g/dL RDW (11.5-14.0) % Plt Count (150-450) x10^3/uL MPV (7.5-11.0) fL Gran % (36.0-66.0) % Immature Gran % (Auto) (0.00-0.4) % Nucleat RBC Rel Count (0.00-0.1) % Eos # (Auto) (0-0.5) x10^3/uL Immature Gran # (Auto) (0.00-0.03) x10^3u/L Absolute Lymphs (auto) (1.0-4.6) x10^3/uL Absolute Monos (auto) (0.0-1.3) x10^3/uL Absolute Nucleated RBC (0.00-0.01) x10^3u/L Lymphocytes % (24.0-44.0) % Monocytes % (0.0-12.0) % Eosinophils % (0.00-5.0) % Basophils % (0.0-0.4) % Absolute Granulocytes (1.4-6.9) x10^3/uL Basophils # (0-0.4) x10^3/uL Puncture Site RIGHT BRACHIAL pCO2 60 H* (35-45) mmHg pO2 139 H* (75-100) mmHg Base Excess -3.4 L (-2.0-2.0) O2 Saturation 97.6 (94-100) g/dF ABG pH 7.23 L* (7.35-7.45) ABG HCO3 25.1 (22-28) ABG O2 Sat (Measured) 99.9 (95-100) % Сергей Test NOT APPLICABLE A-a Gradient 214 a/A Ratio 0.39 Hemoglobin 12.8 Carboxyhemoglobin 1.2 (0.0-6.9) % THgb Methemoglobin 1.2 L (1.4-1.5) % Temperature 37.0 C POC O2 Flow Rate 60 % Vent Mode AVAPS Vent Rate 14 /MIN Tidal Volume 550 cc PEEP 12.0 cmH2O Sodium (137-145) mmol/L Potassium 4.5 (3.5-5.1) mmol/L Chloride (98-107) mmol/L Carbon Dioxide (22-30) mmol/L Anion Gap (5-15) MEQ/L BUN (7-17) mg/dL Creatinine (0.52-1.04) mg/dL Estimated GFR ML/MIN Glucose (74-106) mg/dL POC Glucometer 226 H 199 H (74 to 106) mg/dL Calcium (8.4-10.2) mg/dL Total Bilirubin (0.2-1.3) mg/dL AST (14-36) U/L ALT (0-35) U/L Alkaline Phosphatase (38-126) U/L Serum Total Protein (6.3-8.2) g/dL Albumin (3.5-5.0) g/dL Procalcitonin (0.030-0.080) ng/mL Slides for Path Review Radiology Exams: Radiology Procedures Category Date Time Status ABDOMEN AND PELVIS W/0 CONTRAS [CT] Stat Exams 02/07/22 11:41 Completed CHEST WITHOUT CONTRAST [CT] Stat Exams 02/07/22 11:36 Completed Assessment/Plan (1) COPD exacerbation Current Visit: Yes Status: Acute Assessment & Plan: Doing much better. Will keep her on high dose steroids today, but her O2 requirement is less. May be able to start weaning down steroids tomorrow. Pt ok to transfer out of ICU today. Code(s): J44.1 - CHRONIC OBSTRUCTIVE PULMONARY DISEASE W (ACUTE) EXACERBATION (2) Left lower lobe pneumonia Current Visit: Yes Status: Acute Qualifiers: Aspiration pneumonia type: unspecified Assessment & Plan: on zosyn and flagyl (possibility of aspiration pNA). Code(s): J18.9 - PNEUMONIA, UNSPECIFIED ORGANISM (3) Sepsis Current Visit: Yes Status: Resolved Qualifiers: Sepsis type: Streptococcus, unspecified Sepsis acute organ dysfunction status: without acute organ dysfunction Qualified Code(s): A40.9 - Streptococcal sepsis, unspecified (4) UTI (urinary tract infection) Current Visit: Yes Status: Acute Qualifiers: Urinary tract infection type: acute cystitis Hematuria presence: without hematuria Qualified Code(s): N30.00 - Acute cystitis without hematuria Code(s): N39.0 - URINARY TRACT INFECTION, SITE NOT SPECIFIED
--- NOTE | 2022-02-09 13:05 | PROG NOTE ---
DATE: 02/09/2022 Events noted. HISTORY: The patient is awake, feeling "a lot better". Heart rate is 70, blood pressure 132/70, saturating 98% on nasal cannula. PHYSICAL EXAMINATION: HEENT: Normocephalic. Oral exam shows small oropharynx. NECK: Supple. CVS: First and second heart sounds are normal, regular, rhythmic. RESPIRATORY: Shows diminished breath sounds, occasional crackles are heard at lung bases. ABDOMEN: Soft. EXTREMITIES: No edema is noted. LABORATORY DATA AND TESTS: Labs were reviewed. White count has dropped to 11.4. The pH 7.23, pCO2 of 60 and pO2 of 139. Urine culture is growing Escherichia coli pansensitive. Glucose 247. Total protein of 6.1. ASSESSMENT: This is a 62-year-old woman admitted with: 1) Acute on chronic hypercapnic respiratory failure decompensated. 2) Chronic obstructive pulmonary disease with exacerbation. 3) Left lower lobe community acquired pneumonia. 4) Nicotine addiction. 5) Urinary tract infection with Escherichia coli. RECOMMENDATIONS: The patient clinically appears significantly improved. Continue present treatment. I will reduce IV steroids, continue bronchodilators, out of bed to chair as tolerated, continue noninvasive ventilation as tolerated. Further reduction in steroids based on clinical response. Appears significantly improved in the past 24 hours. Advised to follow up with me in outpatient setting. Thank you for allowing me to participate in the care of Fifi Steen.
[2022-02-09] MEDS ORDERED: Requip 0.5 MG PO ONE (14:00)
[2022-02-09] MEDS: solu-MEDROL 60 MG, Sterile H2O 10 ml 2 ML IV SCH ×4 (15:01→22:00)
[2022-02-09] MEDS: HYDROCODONE-ACETAMIN 10-325 MG PO PRN (20:25)
[2022-02-09] MEDS: Zofran 4 MG/2 ML VIAL IV PRN (20:26)
[2022-02-09] MEDS: Seroquel 100 MG PO SCH (21:48)
[2022-02-10] MEDS: FLAGYL 500 MG IVPB 500 MG/100 ML BAG IV SCH ×4 (02:17→20:53)
[2022-02-10] MEDS: DUONEB 0.5-3 MG/3 ml Neb IH SCH ×6 (02:46→23:18)
[2022-02-10] MEDS: Sodium Chloride 0.9% 1000 ML 1,000 ML IV SCH ×4 (04:59→23:18)
[2022-02-10] MEDS: solu-MEDROL 60 MG, Sterile H2O 10 ml 2 ML IV SCH ×6 (05:42→20:53)
[2022-02-10] MEDS: PIPERACILLIN/TAZOBACTAM 3.375 GM in Sodium Chloride 100ML MINI-BAG PLUS 100 ML IV SCH ×4 (05:43→23:17)
--- NOTE | 2022-02-10 08:10 | PCM.NOTE ---
Date and Time: 02/10/22805 Subjective Assessment: patient notes improvement, she is on oxymizer but she is able to sit up on her bed and get up with assistance which is marked improvement from admission. she is encouraged Objective Exam General Appearance: no apparent distress, obese Neurologic Exam: alert, oriented x 3 Respiratory Exam: prolonged expirations, wheezing Cardiovascular Exam: regular rate/rhythm, normal heart sounds Gastrointestinal/Abdomen Exam: soft, No tenderness, No mass Extremity Exam: normal inspection, normal range of motion OBJECTIVE DATA Vital Signs: Vital Signs - 24 hr Temp Pulse Resp BP Pulse Ox 02/10/22 07:07 90 18 96 02/10/22 04:00 97.1 F 84 20 128/73 97 02/10/22 02:46 73 18 100 02/09/22 23:58 97.4 F 91 H 19 130/62 98 02/09/22 22:00 91 H 20 98 02/09/22 20:00 99.6 F 96 H 18 125/59 100 02/09/22 18:55 95 H 20 95 02/09/22 16:00 97.8 F 84 19 136/77 02/09/22 14:43 78 16 96 02/09/22 12:00 97.1 F 78 16 131/84 96 02/09/22 11:00 74 18 97 Pain Assessment - Last Documented Pain Intensity 0 Pain Scale Used 0-10 Pain Scale Intake and Output: Intake & Output 02/07/22 02/08/22 02/09/22 02/10/22 11:59 11:59 11:59 11:59 Intake Total 1244 5625 5520 Output Total 600 2100 1000 Balance 644 3525 4520 Weight 106.141 kg 106.3 kg Lab Results: Lab Results-Last 24 Hours 02/09/22 02/09/22 02/09/22 Range/Units 04:00 11:24 16:13 POC Glucometer 199 H 220 H (74 to 106) mg/dL Procalcitonin 9.790 H* (0.030-0.080) ng/mL 02/09/22 02/10/22 Range/Units 21:45 07:53 POC Glucometer 224 H 186 H (74 to 106) mg/dL Procalcitonin (0.030-0.080) ng/mL Multi-Disciplinary Progress Notes: Multi-Disciplinary Progress Notes 02/09/22 13:59 Case Management Note by Doreen Serrano PATIENT WOULD LIKE REFERRAL FAXED TO [facility]. REFERRAL FAXED AT THIS TIME. THEY WILL NEED NOTIFIED AT TIME OF DC AT [phone]. THEY WILL NEED FAXED THE DC INSTRUCTIONS, DC MED LIST AND DC SUMMARY ( IF AVAILABLE) TO [phone] Initialized on 02/09/22 13:59 - END OF NOTE Assessment/Plan (1) Left lower lobe pneumonia Current Visit: Yes Status: Acute Qualifiers: Aspiration pneumonia type: unspecified Assessment & Plan: continue zosyn and flagyl, wbc improving and clinically improving. Code(s): J18.9 - PNEUMONIA, UNSPECIFIED ORGANISM (2) COPD exacerbation Current Visit: Yes Status: Acute Assessment & Plan: continue current management, slowly improving. Code(s): J44.1 - CHRONIC OBSTRUCTIVE PULMONARY DISEASE W (ACUTE) EXACERBATION
[2022-02-10] MEDS: Wellbutrin XL 150 MG PO SCH (10:29)
[2022-02-10] MEDS: Requip 0.5 MG PO SCH ×2 (10:29→20:53)
[2022-02-10] MEDS: Lexapro PO SCH (10:29)
[2022-02-10] MEDS: ELIQUIS 2.5 MG TABLET PO SCH ×2 (10:29→20:53)
[2022-02-10] MEDS: Zofran 4 MG/2 ML VIAL IV PRN (10:29)
[2022-02-10] MEDS: Seroquel 100 MG PO SCH (20:52)
[2022-02-10] MEDS: HYDROCODONE-ACETAMIN 10-325 MG PO PRN (20:57)
[2022-02-11] MEDS: solu-MEDROL 125 MG, Sterile H2O 10 ml 2 ML IV SCH ×2 (01:18)
[2022-02-11] MEDS: FLAGYL 500 MG IVPB 500 MG/100 ML BAG IV SCH ×4 (01:41→21:36)
[2022-02-11] MEDS: DUONEB 0.5-3 MG/3 ml Neb IH SCH ×4 (02:36→18:49)
[2022-02-11] MEDS: solu-MEDROL 60 MG, Sterile H2O 10 ml 2 ML IV SCH ×6 (05:36→21:36)
[2022-02-11] MEDS: PIPERACILLIN/TAZOBACTAM 3.375 GM in Sodium Chloride 100ML MINI-BAG PLUS 100 ML IV SCH ×4 (05:36→23:30)
[2022-02-11 05:55] LABS: Hematocrit 39.5 % (35-47); Hemoglobin 12.2 g/dL (12.0-16.0); Mean Cell Volume 102.1 fL (78-100); Mean Corpuscular Hemoglobin 31.5 pg (26-32); Mean Corpuscular Hgb Concent. 30.9 g/dL (32-36); Platelet Count 176 x10^3/uL (150-450); Red Blood Count 3.87 x10^6/uL (4.1-5.4); Red Cell Distribution Width 16.6 % (11.5-14.0); White Blood Count 10.1 x10^3/uL (4.0-10.5)
[2022-02-11 05:59] LABS: ALBUMIN 3.1 g/dL (3.5-5.0); ALKALINE PHOSPHATASE 68 U/L (38-126); ANION GAP 8.7 MEQ/L (5-15); BLOOD UREA NITROGEN 21 mg/dL (7-17); CHLORIDE 112 mmol/L (98-107); Calcium 8.3 mg/dL (8.4-10.2); Carbon Dioxide 26 mmol/L (22-30); Creatinine 1 0.51 mg/dL (0.52-1.04); EST GLOMERULAR FILTRATION RATE > 60.0 ML/MIN; Glucose 163 mg/dL (74-106); MAGNESIUM 1.8 mg/dL (1.6-2.3); Potassium 4.8 mmol/L (3.5-5.1); SGOT/AST 24 U/L (14-36); SGPT/ALT 19 U/L (0-35); SODIUM 141 mmol/L (137-145); Total Protein 5.8 g/dL (6.3-8.2)
[2022-02-11 07:14] LABS: BAND 3 % (0.0-2.0); Lymphocytes 5 % (24-44); Monocyte 2 % (0.0-12.0); Platelet Estimate NORMAL (NORMAL); Total Cells Counted 100; Toxic Granulation 1+
[2022-02-11] MEDS: ELIQUIS 2.5 MG TABLET PO SCH ×2 (09:45→21:36)
[2022-02-11] MEDS: Requip 0.5 MG PO SCH ×2 (09:45→21:36)
[2022-02-11] MEDS: Lexapro PO SCH (09:45)
[2022-02-11] MEDS: Wellbutrin XL 150 MG PO SCH (09:45)
[2022-02-11] MEDS: Sodium Chloride 0.9% 1000 ML 1,000 ML IV SCH ×2 (12:11→21:38)
--- NOTE | 2022-02-11 12:16 | PCM.NOTE ---
Date and Time: 02/11/22 1215 Subjective Assessment: feeling better, breathing is improved. oxymizer reduced to 5L while I was on the floor. she is feeling a lot better Objective Exam General Appearance: no apparent distress, obese Respiratory Exam: prolonged expirations, rhonchi Cardiovascular Exam: regular rate/rhythm, normal heart sounds Gastrointestinal/Abdomen Exam: soft, No tenderness, No mass Extremity Exam: normal inspection, normal range of motion OBJECTIVE DATA Vital Signs: Vital Signs - 24 hr Temp Pulse Resp BP Pulse Ox 02/11/22 07:29 82 22 95 02/11/22 07:24 96.5 F 76 18 150/72 96 02/11/22 04:00 97.8 F 89 21 133/78 96 02/10/22 23:47 97.7 F 92 H 22 144/70 97 02/10/22 23:18 89 20 97 02/10/22 20:00 97.7 F 89 22 152/83 92 L 02/10/22 18:37 87 18 98 02/10/22 16:00 98.2 F 87 20 163/89 96 02/10/22 14:44 88 18 95 Pain Assessment - Last Documented Pain Intensity 0 Pain Scale Used 0-10 Pain Scale Intake and Output: Intake & Output 02/09/22 02/10/22 02/11/22 02/12/22 11:59 11:59 11:59 11:59 Intake Total 5625 5520 3881 Output Total 2100 1000 500 Balance 3525 4520 3381 Weight 106 kg Lab Results: Lab Results-Last 24 Hours 02/10/22 02/10/22 02/11/22 Range/Units 16:18 21:11 05:22 WBC 10.1 (4.0-10.5) x10^3/uL RBC 3.87 L (4.1-5.4) x10^6/uL Hgb 12.2 (12.0-16.0) g/dL Hct 39.5 (35-47) % MCV 102.1 H (78-100) fL MCH 31.5 (26-32) pg MCHC 30.9 L (32-36) g/dL RDW 16.6 H (11.5-14.0) % Plt Count 176 (150-450) x10^3/uL MPV 9.0 (7.5-11.0) fL Segmented Neutrophils 90 H (36.0-66.0) % Band Neutrophils 3 H (0.0-2.0) % Lymphocytes (Manual) 5 L (24-44) % Monocytes (Manual) 2 (0.0-12.0) % Toxic Granulation 1+ Platelet Estimate NORMAL (NORMAL) RBC Morphology NORMAL Sodium (137-145) mmol/L Potassium (3.5-5.1) mmol/L Chloride (98-107) mmol/L Carbon Dioxide (22-30) mmol/L Anion Gap (5-15) MEQ/L BUN (7-17) mg/dL Creatinine (0.52-1.04) mg/dL Estimated GFR ML/MIN Glucose (74-106) mg/dL POC Glucometer 150 H 187 H (74 to 106) mg/dL Calcium (8.4-10.2) mg/dL Magnesium (1.6-2.3) mg/dL Total Bilirubin (0.2-1.3) mg/dL AST (14-36) U/L ALT (0-35) U/L Alkaline Phosphatase (38-126) U/L Serum Total Protein (6.3-8.2) g/dL Albumin (3.5-5.0) g/dL 02/11/22 02/11/22 02/11/22 Range/Units 05:22 06:52 11:37 WBC (4.0-10.5) x10^3/uL RBC (4.1-5.4) x10^6/uL Hgb (12.0-16.0) g/dL Hct (35-47) % MCV (78-100) fL MCH (26-32) pg MCHC (32-36) g/dL RDW (11.5-14.0) % Plt Count (150-450) x10^3/uL MPV (7.5-11.0) fL Segmented Neutrophils (36.0-66.0) % Band Neutrophils (0.0-2.0) % Lymphocytes (Manual) (24-44) % Monocytes (Manual) (0.0-12.0) % Toxic Granulation Platelet Estimate (NORMAL) RBC Morphology Sodium 141 (137-145) mmol/L Potassium 4.8 (3.5-5.1) mmol/L Chloride 112 H (98-107) mmol/L Carbon Dioxide 26 (22-30) mmol/L Anion Gap 8.7 (5-15) MEQ/L BUN 21 H (7-17) mg/dL Creatinine 0.51 L (0.52-1.04) mg/dL Estimated GFR > 60.0 ML/MIN Glucose 163 H (74-106) mg/dL POC Glucometer 140 H 177 H (74 to 106) mg/dL Calcium 8.3 L (8.4-10.2) mg/dL Magnesium 1.8 (1.6-2.3) mg/dL Total Bilirubin 0.40 (0.2-1.3) mg/dL AST 24 (14-36) U/L ALT 19 (0-35) U/L Alkaline Phosphatase 68 (38-126) U/L Serum Total Protein 5.8 L (6.3-8.2) g/dL Albumin 3.1 L (3.5-5.0) g/dL Multi-Disciplinary Progress Notes: Multi-Disciplinary Progress Notes 02/11/22 02:36 Respiratory Note by Akua Randhawa Pt was found off Bipap on 10L oxymizer. Pt refuses bipap and scheduled neb tx at this time. Initialized on 02/11/22 02:36 - END OF NOTE Assessment/Plan (1) Left lower lobe pneumonia Current Visit: Yes Status: Acute Qualifiers: Aspiration pneumonia type: unspecified Assessment & Plan: on zosyn and flagyl, concern for aspiration based on imaging Code(s): J18.9 - PNEUMONIA, UNSPECIFIED ORGANISM (2) COPD exacerbation Current Visit: Yes Status: Acute Assessment & Plan: continue abx, IV steroids and nebs Code(s): J44.1 - CHRONIC OBSTRUCTIVE PULMONARY DISEASE W (ACUTE) EXACERBATION
[2022-02-11] MEDS: HYDROCODONE-ACETAMIN 10-325 MG PO PRN (15:37)
[2022-02-11] MEDS: Seroquel 100 MG PO SCH (21:36)
[2022-02-12] MEDS: HYDROCODONE-ACETAMIN 10-325 MG PO PRN ×2 (00:11→15:00)
[2022-02-12] MEDS: DUONEB 0.5-3 MG/3 ml Neb IH SCH ×4 (00:29→18:26)
[2022-02-12] MEDS: FLAGYL 500 MG IVPB 500 MG/100 ML BAG IV SCH ×4 (02:57→21:45)
[2022-02-12] MEDS: PIPERACILLIN/TAZOBACTAM 3.375 GM in Sodium Chloride 100ML MINI-BAG PLUS 100 ML IV SCH ×4 (05:44→23:50)
[2022-02-12 05:45] LABS: Hematocrit 38.9 % (35-47); Mean Cell Volume 101.3 fL (78-100); Mean Corpuscular Hemoglobin 31.3 pg (26-32); Mean Corpuscular Hgb Concent. 30.8 g/dL (32-36); Mean Platelet Volume 8.8 fL (7.5-11.0); Platelet Count 179 x10^3/uL (150-450); Red Blood Count 3.84 x10^6/uL (4.1-5.4); Red Cell Distribution Width 16.2 % (11.5-14.0); White Blood Count 8.9 x10^3/uL (4.0-10.5)
[2022-02-12] MEDS: solu-MEDROL 60 MG, Sterile H2O 10 ml 2 ML IV SCH ×6 (05:45→21:46)
[2022-02-12 06:06] LABS: ALBUMIN 2.9 g/dL (3.5-5.0); ALKALINE PHOSPHATASE 64 U/L (38-126); ANION GAP 6.3 MEQ/L (5-15); BLOOD UREA NITROGEN 14 mg/dL (7-17); CHLORIDE 108 mmol/L (98-107); Calcium 8.3 mg/dL (8.4-10.2); Carbon Dioxide 30 mmol/L (22-30); Creatinine 1 0.45 mg/dL (0.52-1.04); EST GLOMERULAR FILTRATION RATE > 60.0 ML/MIN; Glucose 166 mg/dL (74-106); Potassium 4.4 mmol/L (3.5-5.1); SGOT/AST 20 U/L (14-36); SGPT/ALT 18 U/L (0-35); SODIUM 140 mmol/L (137-145); Total Protein 5.5 g/dL (6.3-8.2)
--- NOTE | 2022-02-12 09:28 | PCM.NOTE ---
Date and Time: 02/12/22926 Subjective Assessment: patient currently on 5L nasal cannula, she is feeling better each day. Objective Exam General Appearance: no apparent distress Neurologic Exam: alert, oriented x 3 Respiratory Exam: diminished breath sounds, prolonged expirations, rhonchi, wheezing Cardiovascular Exam: regular rate/rhythm, normal heart sounds Gastrointestinal/Abdomen Exam: soft, No tenderness, No mass Extremity Exam: normal inspection, normal range of motion OBJECTIVE DATA Vital Signs: Vital Signs - 24 hr Temp Pulse Resp BP Pulse Ox 02/12/22 07:36 97.1 F 98 H 24 184/86 94 L 02/12/22 07:34 67 18 99 02/12/22 04:00 97.6 F 87 22 168/84 91 L 02/12/22 00:31 79 20 100 02/11/22 23:35 98.2 F 86 16 159/82 90 L 02/11/22 19:22 97.1 F 98 H 21 147/67 97 02/11/22 18:52 82 16 97 02/11/22 16:00 96.7 F 66 175/78 96 02/11/22 12:33 75 22 95 02/11/22 12:00 96.4 F 75 22 159/76 100 Pain Assessment - Last Documented Pain Intensity 0 Pain Scale Used [facility] Intake and Output: Intake & Output 02/09/22 02/10/22 02/11/22 02/12/22 11:59 11:59 11:59 11:59 Intake Total 5625 5520 3881 4244 Output Total 2100 1000 500 Balance 3525 4520 3381 4244 Weight 106 kg Lab Results: Lab Results-Last 24 Hours 02/11/22 02/11/22 02/11/22 Range/Units 11:37 16:11 21:25 WBC (4.0-10.5) x10^3/uL RBC (4.1-5.4) x10^6/uL Hgb (12.0-16.0) g/dL Hct (35-47) % MCV (78-100) fL MCH (26-32) pg MCHC (32-36) g/dL RDW (11.5-14.0) % Plt Count (150-450) x10^3/uL MPV (7.5-11.0) fL Sodium (137-145) mmol/L Potassium (3.5-5.1) mmol/L Chloride (98-107) mmol/L Carbon Dioxide (22-30) mmol/L Anion Gap (5-15) MEQ/L BUN (7-17) mg/dL Creatinine (0.52-1.04) mg/dL Estimated GFR ML/MIN Glucose (74-106) mg/dL POC Glucometer 177 H 124 H 194 H (74 to 106) mg/dL Calcium (8.4-10.2) mg/dL Total Bilirubin (0.2-1.3) mg/dL AST (14-36) U/L ALT (0-35) U/L Alkaline Phosphatase (38-126) U/L Serum Total Protein (6.3-8.2) g/dL Albumin (3.5-5.0) g/dL 02/12/22 02/12/22 02/12/22 Range/Units 05:32 05:32 07:13 WBC 8.9 (4.0-10.5) x10^3/uL RBC 3.84 L (4.1-5.4) x10^6/uL Hgb 12.0 (12.0-16.0) g/dL Hct 38.9 (35-47) % MCV 101.3 H (78-100) fL MCH 31.3 (26-32) pg MCHC 30.8 L (32-36) g/dL RDW 16.2 H (11.5-14.0) % Plt Count 179 (150-450) x10^3/uL MPV 8.8 (7.5-11.0) fL Sodium 140 (137-145) mmol/L Potassium 4.4 (3.5-5.1) mmol/L Chloride 108 H (98-107) mmol/L Carbon Dioxide 30 (22-30) mmol/L Anion Gap 6.3 (5-15) MEQ/L BUN 14 (7-17) mg/dL Creatinine 0.45 L (0.52-1.04) mg/dL Estimated GFR > 60.0 ML/MIN Glucose 166 H (74-106) mg/dL POC Glucometer 151 H (74 to 106) mg/dL Calcium 8.3 L (8.4-10.2) mg/dL Total Bilirubin 0.50 (0.2-1.3) mg/dL AST 20 (14-36) U/L ALT 18 (0-35) U/L Alkaline Phosphatase 64 (38-126) U/L Serum Total Protein 5.5 L (6.3-8.2) g/dL Albumin 2.9 L (3.5-5.0) g/dL Assessment/Plan (1) Left lower lobe pneumonia Current Visit: Yes Status: Acute Qualifiers: Aspiration pneumonia type: unspecified Assessment & Plan: wbc normalized, clinically improving. cont zosyn and flagyl due to concern for aspiration Code(s): J18.9 - PNEUMONIA, UNSPECIFIED ORGANISM (2) COPD exacerbation Current Visit: Yes Status: Acute Assessment & Plan: abx, steroids, nebs Code(s): J44.1 - CHRONIC OBSTRUCTIVE PULMONARY DISEASE W (ACUTE) EXACERBATION
[2022-02-12] MEDS: Lexapro PO SCH (09:56)
[2022-02-12] MEDS: Wellbutrin XL 150 MG PO SCH (09:56)
[2022-02-12] MEDS: Requip 0.5 MG PO SCH ×3 (09:56→21:49)
[2022-02-12] MEDS: ELIQUIS 2.5 MG TABLET PO SCH ×2 (09:56→21:47)
[2022-02-12] MEDS: ANTIVERT 25 MG PO PRN (09:59)
[2022-02-12 10:50] LABS: BAND 3 % (0.0-2.0); Lymphocytes 12 % (24-44); Monocyte 6 % (0.0-12.0); Platelet Estimate NORMAL (NORMAL); Total Cells Counted 100; Toxic Granulation 1+
[2022-02-12] MEDS: Sodium Chloride 0.9% 1000 ML 1,000 ML IV SCH ×2 (12:09→23:49)
[2022-02-12] MEDS: Zofran 4 MG/2 ML VIAL IV PRN (12:11)
[2022-02-12] MEDS: Mylicon 80MG PO PRN (19:45)
[2022-02-12] MEDS: Seroquel 100 MG PO SCH (21:46)
[2022-02-13] MEDS: FLAGYL 500 MG IVPB 500 MG/100 ML BAG IV SCH ×4 (01:39→19:36)
[2022-02-13] MEDS: Mylicon 80MG PO PRN ×2 (02:25→12:00)
[2022-02-13 05:23] LABS: Hematocrit 40.5 % (35-47); Hemoglobin 12.7 g/dL (12.0-16.0); Mean Cell Volume 98.5 fL (78-100); Mean Corpuscular Hemoglobin 30.9 pg (26-32); Mean Corpuscular Hgb Concent. 31.4 g/dL (32-36); Mean Platelet Volume 9.1 fL (7.5-11.0); Platelet Count 243 x10^3/uL (150-450); Red Blood Count 4.11 x10^6/uL (4.1-5.4); Red Cell Distribution Width 15.6 % (11.5-14.0); White Blood Count 9.3 x10^3/uL (4.0-10.5)
[2022-02-13 05:57] LABS: ALBUMIN 3.2 g/dL (3.5-5.0); ALKALINE PHOSPHATASE 66 U/L (38-126); ANION GAP 8.5 MEQ/L (5-15); BLOOD UREA NITROGEN 11 mg/dL (7-17); CHLORIDE 103 mmol/L (98-107); Calcium 8.3 mg/dL (8.4-10.2); Carbon Dioxide 31 mmol/L (22-30); EST GLOMERULAR FILTRATION RATE > 60.0 ML/MIN; Glucose 162 mg/dL (74-106); Potassium 3.8 mmol/L (3.5-5.1); SGOT/AST 16 U/L (14-36); SGPT/ALT 18 U/L (0-35); SODIUM 139 mmol/L (137-145); Total Protein 5.9 g/dL (6.3-8.2)
[2022-02-13] MEDS: solu-MEDROL 60 MG, Sterile H2O 10 ml 2 ML IV SCH ×6 (05:57→21:10)
[2022-02-13] MEDS: PIPERACILLIN/TAZOBACTAM 3.375 GM in Sodium Chloride 100ML MINI-BAG PLUS 100 ML IV SCH ×2 (05:57→11:48)
[2022-02-13] MEDS: DUONEB 0.5-3 MG/3 ml Neb IH SCH ×4 (06:52→18:26)
[2022-02-13 07:30] LABS: Lymphocytes 13 % (24-44); Monocyte 1 % (0.0-12.0); Platelet Estimate NORMAL (NORMAL); Total Cells Counted 100
--- NOTE | 2022-02-13 08:42 | PCM.NOTE ---
Date and Time: 02/13/22835 Subjective Assessment: She just feels tired. SOB when she's up. Sera po. On 6L O2 right now; is supposed to be on 2L 02 per NC at home. - Review of Systems Constitutional: No Fever Respiratory: Short Of Breath Objective Exam General Appearance: no apparent distress, obese Neurologic Exam: oriented x 3, cooperative Skin Exam: normal color, warm, dry, No rash Eye Exam: eyes nml inspection Ears, Nose, Throat Exam: dry mucous membranes Neck Exam: normal inspection Respiratory Exam: diminished breath sounds (poor to fair air exchange), wheezing (expiratory), No crackles/rales, No rhonchi Cardiovascular Exam: regular rate/rhythm, normal heart sounds, No murmur Gastrointestinal/Abdomen Exam: soft, normal bowel sounds, No tenderness, No distention, No mass, No guarding, No rebound Extremity Exam: normal inspection, swelling (pretibial trace edema) OBJECTIVE DATA Vital Signs: Vital Signs - 24 hr Temp Pulse Resp BP Pulse Ox 02/13/22 07:37 97.1 F 67 16 170/87 94 L 02/13/22 06:56 70 20 94 L 02/13/22 04:10 98.4 F 84 21 168/84 93 L 02/12/22 23:46 97.9 F 88 16 169/91 88 L 02/12/22 19:42 97.4 F 72 21 169/82 96 02/12/22 18:32 90 20 98 02/12/22 16:00 97.3 F 86 24 157/80 100 02/12/22 13:20 68 18 95 02/12/22 11:30 97.5 F 69 14 178/84 95 02/12/22 11:27 95 02/12/22 11:23 63 L 02/12/22 10:30 100 Pain Assessment - Last Documented Pain Intensity 0 Pain Scale Used 0-10 Pain Scale Intake and Output: Intake & Output 02/10/22 02/11/22 02/12/22 02/13/22 11:59 11:59 11:59 11:59 Intake Total 5520 3881 4244 3643 Output Total 1000 500 300 Balance 4520 3381 4244 3343 Weight 106 kg 107 kg Lab Results: Lab Results-Last 24 Hours 02/12/22 02/12/22 02/12/22 Range/Units 05:32 11:37 16:29 WBC (4.0-10.5) x10^3/uL RBC (4.1-5.4) x10^6/uL Hgb (12.0-16.0) g/dL Hct (35-47) % MCV (78-100) fL MCH (26-32) pg MCHC (32-36) g/dL RDW (11.5-14.0) % Plt Count (150-450) x10^3/uL MPV (7.5-11.0) fL Segmented Neutrophils 79 H (36.0-66.0) % Band Neutrophils 3 H (0.0-2.0) % Lymphocytes (Manual) 12 L (24-44) % Monocytes (Manual) 6 (0.0-12.0) % Toxic Granulation 1+ Platelet Estimate NORMAL (NORMAL) RBC Morphology NORMAL Sodium (137-145) mmol/L Potassium (3.5-5.1) mmol/L Chloride (98-107) mmol/L Carbon Dioxide (22-30) mmol/L Anion Gap (5-15) MEQ/L BUN (7-17) mg/dL Creatinine (0.52-1.04) mg/dL Estimated GFR ML/MIN Glucose (74-106) mg/dL POC Glucometer 176 H 127 H (74 to 106) mg/dL Calcium (8.4-10.2) mg/dL Total Bilirubin (0.2-1.3) mg/dL AST (14-36) U/L ALT (0-35) U/L Alkaline Phosphatase (38-126) U/L Serum Total Protein (6.3-8.2) g/dL Albumin (3.5-5.0) g/dL 02/12/22 02/13/22 02/13/22 Range/Units 21:23 04:40 04:40 WBC 9.3 (4.0-10.5) x10^3/uL RBC 4.11 (4.1-5.4) x10^6/uL Hgb 12.7 (12.0-16.0) g/dL Hct 40.5 (35-47) % MCV 98.5 (78-100) fL MCH 30.9 (26-32) pg MCHC 31.4 L (32-36) g/dL RDW 15.6 H (11.5-14.0) % Plt Count 243 D (150-450) x10^3/uL MPV 9.1 (7.5-11.0) fL Segmented Neutrophils 86 H (36.0-66.0) % Band Neutrophils (0.0-2.0) % Lymphocytes (Manual) 13 L (24-44) % Monocytes (Manual) 1 (0.0-12.0) % Toxic Granulation Platelet Estimate NORMAL (NORMAL) RBC Morphology NORMAL Sodium 139 (137-145) mmol/L Potassium 3.8 (3.5-5.1) mmol/L Chloride 103 (98-107) mmol/L Carbon Dioxide 31 H (22-30) mmol/L Anion Gap 8.5 (5-15) MEQ/L BUN 11 (7-17) mg/dL Creatinine 0.40 L (0.52-1.04) mg/dL Estimated GFR > 60.0 ML/MIN Glucose 162 H (74-106) mg/dL POC Glucometer 172 H (74 to 106) mg/dL Calcium 8.3 L (8.4-10.2) mg/dL Total Bilirubin 0.70 (0.2-1.3) mg/dL AST 16 (14-36) U/L ALT 18 (0-35) U/L Alkaline Phosphatase 66 (38-126) U/L Serum Total Protein 5.9 L (6.3-8.2) g/dL Albumin 3.2 L (3.5-5.0) g/dL 02/13/22 Range/Units 07:01 WBC (4.0-10.5) x10^3/uL RBC (4.1-5.4) x10^6/uL Hgb (12.0-16.0) g/dL Hct (35-47) % MCV (78-100) fL MCH (26-32) pg MCHC (32-36) g/dL RDW (11.5-14.0) % Plt Count (150-450) x10^3/uL MPV (7.5-11.0) fL Segmented Neutrophils (36.0-66.0) % Band Neutrophils (0.0-2.0) % Lymphocytes (Manual) (24-44) % Monocytes (Manual) (0.0-12.0) % Toxic Granulation Platelet Estimate (NORMAL) RBC Morphology Sodium (137-145) mmol/L Potassium (3.5-5.1) mmol/L Chloride (98-107) mmol/L Carbon Dioxide (22-30) mmol/L Anion Gap (5-15) MEQ/L BUN (7-17) mg/dL Creatinine (0.52-1.04) mg/dL Estimated GFR ML/MIN Glucose (74-106) mg/dL POC Glucometer TNP (74 to 106) mg/dL Calcium (8.4-10.2) mg/dL Total Bilirubin (0.2-1.3) mg/dL AST (14-36) U/L ALT (0-35) U/L Alkaline Phosphatase (38-126) U/L Serum Total Protein (6.3-8.2) g/dL Albumin (3.5-5.0) g/dL Assessment/Plan (1) COPD exacerbation Current Visit: Yes Status: Acute Assessment & Plan: Still on 6L O2 per NC. On Steroid IV. Would like to see her on 4L O2 or less to go home, perhaps middle of the week. Code(s): J44.1 - CHRONIC OBSTRUCTIVE PULMONARY DISEASE W (ACUTE) EXACERBATION (2) Left lower lobe pneumonia Current Visit: Yes Status: Acute Qualifiers: Aspiration pneumonia type: unspecified Assessment & Plan: Recheck procalcitonin. Today is day #7 zosyn and flagyl for probable aspiration pneumonia. Code(s): J18.9 - PNEUMONIA, UNSPECIFIED ORGANISM (3) Sepsis Current Visit: Yes Status: Resolved Qualifiers: Sepsis type: Streptococcus, unspecified Sepsis acute organ dysfunction status: without acute organ dysfunction Qualified Code(s): A40.9 - Streptococcal sepsis, unspecified
[2022-02-13] MEDS: Lexapro PO SCH (09:30)
[2022-02-13] MEDS: NORVASC 5 MG PO SCH (09:30)
[2022-02-13] MEDS: Requip 0.5 MG PO SCH ×3 (09:31→21:10)
[2022-02-13] MEDS: Wellbutrin XL 150 MG PO SCH (09:31)
[2022-02-13] MEDS: ELIQUIS 2.5 MG TABLET PO SCH ×2 (09:31→21:09)
[2022-02-13] MEDS: Sodium Chloride 0.9% 1000 ML 1,000 ML IV SCH (11:48)
[2022-02-13] MEDS: HYDROCODONE-ACETAMIN 10-325 MG PO PRN (17:39)
[2022-02-13] MEDS: Seroquel 100 MG PO SCH (21:10)
[2022-02-14] MEDS: Sodium Chloride 0.9% 1000 ML 1,000 ML IV SCH ×2 (00:44→13:30)
[2022-02-14] MEDS: FLAGYL 500 MG IVPB 500 MG/100 ML BAG IV SCH ×4 (01:26→22:35)
[2022-02-14] MEDS: solu-MEDROL 60 MG, Sterile H2O 10 ml 2 ML IV SCH ×2 (06:00)
[2022-02-14] MEDS ORDERED: APRESOLINE 20 MG/ML INJ IV PRN (06:24)
[2022-02-14] MEDS: DUONEB 0.5-3 MG/3 ml Neb IH SCH ×4 (06:54→17:14)
[2022-02-14] MEDS ORDERED: TYLENOL 325 MG PO PRN (07:42)
[2022-02-14] MEDS: NORVASC 5 MG PO SCH (08:09)
[2022-02-14] MEDS: Lexapro PO SCH (08:09)
[2022-02-14] MEDS: ELIQUIS 2.5 MG TABLET PO SCH ×2 (08:09→22:30)
[2022-02-14] MEDS: Requip 0.5 MG PO SCH (08:10)
[2022-02-14] MEDS: Wellbutrin XL 150 MG PO SCH (08:10)
--- NOTE | 2022-02-14 09:02 | PCM.NOTE ---
Date and Time: 02/14/22 08 Subjective Assessment: She is feeling pretty good. Had 4-6 L NC over the past 24 hours. Just turned down to 3L. Sera po. - Review of Systems Constitutional: No Fever Respiratory: Cough, Short Of Breath Objective Exam General Appearance: no apparent distress, obese Neurologic Exam: oriented x 3, cooperative Skin Exam: normal color, warm, dry Eye Exam: eyes nml inspection Ears, Nose, Throat Exam: moist mucous membranes Neck Exam: normal inspection Respiratory Exam: diminished breath sounds (fair air exchange), wheezing (exp, scattered), No crackles/rales, No rhonchi Cardiovascular Exam: regular rate/rhythm, normal heart sounds, No murmur Gastrointestinal/Abdomen Exam: soft, normal bowel sounds Extremity Exam: normal inspection, swelling (trace pretibial edema bilat) Back Exam: normal inspection, No rash OBJECTIVE DATA Vital Signs: Vital Signs - 24 hr Temp Pulse Resp BP Pulse Ox 02/14/22 07:43 97.5 F 69 18 177/95 96 02/14/22 07:34 93 L 02/14/22 06:58 69 18 96 02/14/22 04:00 97.1 F 79 18 162/84 92 L 02/13/22 22:55 97.3 F 100 H 20 178/93 90 L 02/13/22 19:51 97.1 F 88 18 168/79 86 L 02/13/22 18:28 85 16 92 L 02/13/22 16:00 97.2 F 86 16 181/100 90 L 02/13/22 12:23 90 18 92 L 02/13/22 11:39 97.1 F 97 H 16 144/80 92 L Pain Assessment - Last Documented Pain Intensity 0 Pain Scale Used 0-10 Pain Scale Intake and Output: Intake & Output 02/11/22 02/12/22 02/13/22 02/14/22 11:59 11:59 11:59 11:59 Intake Total 3881 4244 3643 3174 Output Total 500 300 Balance 3381 4244 3343 3174 Weight 107 kg 118 kg Lab Results: Lab Results-Last 24 Hours 02/13/22 02/13/22 02/13/22 Range/Units 05:30 11:14 16:13 POC Glucometer 97 91 (74 to 106) mg/dL Procalcitonin 0.889 H (0.030-0.080) ng/mL 02/13/22 02/14/22 Range/Units 21:08 07:23 POC Glucometer 154 H 122 H (74 to 106) mg/dL Procalcitonin (0.030-0.080) ng/mL Multi-Disciplinary Progress Notes: Multi-Disciplinary Progress Notes 02/13/22 12:28 Respiratory Note by Idalia Rodriguez pts spo2 80% on 5L after returning from bathroom. pt back in bed and spo2 back up to 92% on 5L Initialized on 02/13/22 12:28 - END OF NOTE 02/13/22 10:47 Case Management Note by Evelyn Aguirre PATIENT REPORTS SHE DOES NOT REMEMBER ALL OF HER TIME HER WHILE SHE WAS SO ACUTELY ILL. SHE STATES UNDERSTANDING THAT SHE PREVIOUSLY AGREED TO HHC WITH AMEDYSIS AND STATES SHE IS STILL AGREEABLE TO THAT PLAN ON D/C. ALSO DISCUSSED INCREASED OXGYEN NEEDS, IF MORE THAN HOME O2 AT 2L/NC NEEDED ONCE D/C'D NEW ORDER WILL BE SENT TO [facility]. PT DENIES ANY FURTHER WANTS OR NEEDS ON D/C AT THIS TIME. Initialized on 02/13/22 10:47 - END OF NOTE Assessment/Plan (1) COPD exacerbation Current Visit: Yes Status: Acute Assessment & Plan: Improving; if can stay at 4L or less, would send her home tomorrow. Her procalcitonin was still elevated, although minimal compared to at admission. Would send her home on antibiotics to finish 10-14 days. Code(s): J44.1 - CHRONIC OBSTRUCTIVE PULMONARY DISEASE W (ACUTE) EXACERBATION (2) Left lower lobe pneumonia Current Visit: Yes Status: Acute Qualifiers: Aspiration pneumonia type: unspecified Code(s): J18.9 - PNEUMONIA, UNSPECIFIED ORGANISM
[2022-02-14] MEDS: solu-MEDROL 40 MG, Sterile H2O 10 ml 1 ML IV SCH ×4 (11:41→22:29)
[2022-02-14] MEDS: PIPERACILLIN/TAZOBACTAM 3.375 GM in Sodium Chloride 100ML MINI-BAG PLUS 100 ML IV SCH ×2 (11:41→17:37)
[2022-02-14] MEDS: HYDROCODONE-ACETAMIN 10-325 MG PO PRN (13:30)
[2022-02-14] MEDS: Seroquel 100 MG PO SCH (22:30)
[2022-02-15] MEDS: Requip 0.5 MG PO SCH ×2 (00:05→10:57)
[2022-02-15] MEDS: PIPERACILLIN/TAZOBACTAM 3.375 GM in Sodium Chloride 100ML MINI-BAG PLUS 100 ML IV SCH ×2 (00:07→05:42)
[2022-02-15] MEDS: DUONEB 0.5-3 MG/3 ml Neb IH SCH ×2 (04:43→06:46)
[2022-02-15 06:49] VITALS: PULSE 72; O2SAT 91
[2022-02-15 07:23] VITALS: BP 161/91
--- NOTE | 2022-02-15 09:20 | PCM.DS ---
Discharge Summary Date of Admission: 02/07/22 14:07 Admitting Physician: GUILLERMO VEGA Consults: Consults on Case 02/08/22 10:29 Consult Pulmonology ROUTINE Primary Care Provider: MORIAH CHAVEZ Allergies Allergies aripiprazole [From Abilify] Allergy (Severe, Verified 02/07/22 11:10) Lightheadedness cyclobenzaprine HCl [From Flexeril] Allergy (Severe, Verified 02/07/22 11:10) Lightheadedness oxycodone [From Percocet] Allergy (Verified 02/07/22 11:10) Hospital Summary - Hospital Course Hospital Course: is a 62 year old female pt with COPD who was admitted to ER with UTI, COPD exacerbation, and LLL PNA (?aspiration). She sees PHARMACEUTICAL ANALYST Melody Graham. Came in through ER c/o vomiting and coughing up bloody sputum, with saturations in the mid-80s. She was initially put on aeromask then high flow in ER; Had to be on BiPap the next day. She was started on IV steroids that next morning. Dr. Juma Webber was consulted, thank you. Pt then steadily started recovering. She was on IV zosyn and flagyl since aspiration was a possibility. She is supposed to be on 2L O2 at home. Currently she is on 3L O2 per NC and feeling much better; will be discharged to home today. Her sputum culture grew E. coli and Staph aureus. She does remember vomiting prior to her admission. Due to susceptibilities, will be discharged to home on augmentin an ddoxycycline to finish 14d total antibiotics. - Vitals & Intake/Output Vital Signs: Vital Signs Temperature 97.3 F 02/15/22 07:21 Pulse Rate 72 02/15/22 07:21 Respiratory Rate 17 02/15/22 07:21 Blood Pressure 161/91 02/15/22 07:21 O2 Sat by Pulse Oximetry 91 L 02/15/22 07:21 Intake & Output: Intake & Output 02/12/22 02/13/22 02/14/22 02/15/22 11:59 11:59 11:59 11:59 Intake Total 4244 2493 3174 1689 Output Total 300 Balance 4244 3343 3174 1689 Weight 107 kg 118 kg - Lab Result Diagrams: 02/13/22 04:40 02/13/22 04:40 Lab Results-Last 24 Hrs: Lab Results-Last 24 Hours 02/14/22 02/14/22 02/14/22 Range/Units 11:53 16:45 21:52 POC Glucometer 141 H 183 H 167 H (74 to 106) mg/dL 02/15/22 Range/Units 06:50 POC Glucometer 139 H (74 to 106) mg/dL Micro Results-Entire Visit: Microbiology 02/07/22 11:54 Aerobic Culture - Preliminary Sputum - Expectorant Aerobic Organism ID Result 1 - Preliminary 02/07/22 11:23 Aerobic Culture - Preliminary Blood Aerobic Organism ID Result 1 - Preliminary 02/08/22 10:30 Urine Culture - Final Urine, Indwelling Catheter NO GROWTH 02/07/22 11:54 Gram Stain - Final Sputum - Expectorant Sputum Culture - Preliminary Escherichia Coli Staphylococcus Aureus 02/07/22 13:00 Blood Culture Gram Stain - Final Blood Blood Culture - Preliminary ADDITIONAL TESTING IS REQUIRED TO OBTAIN ID AND SENSITIVITY. SPECIMEN HAS BEEN SENT TO REFERENCE LAB, WITH FINAL RESULT EXPECTED WITHIN 96 HOURS. 02/07/22 11:23 Blood Culture Gram Stain - Final Blood Blood Culture - Preliminary ADDITIONAL TESTING IS REQUIRED TO OBTAIN ID AND SENSITIVITY. SPECIMEN HAS BEEN SENT TO REFERENCE LAB, WITH FINAL RESULT EXPECTED WITHIN 96 HOURS. 02/07/22 11:36 Urine Culture - Final Clean Catch Midstream Escherichia Coli Accuchecks Date 02/15/22 Date 02/14/22 Date 02/14/22 Time 07:20 Time 16:45 Time 12:00 - Procedures and Test Procedures and Tests throughout Hospitalization: Therapy Orders & Screens 02/07/22 12:02 Respiratory Therapy Assessment DAILY Comment: 02/07/22 13:41 Oxygen Oxymizer LPM 10 lpm Comment: Respiratory Therapy Consult ROUTINE Comment: Reason For Exam: 02/07/22 14:26 Smoking Cessation Education ONCE Comment: Diagnosis: Sepsis Smoking Status: Current every day smoker How long have you smoked: 45 Have you smoked in the past 12 months: Yes Approximately how many cigarettes per day: 1ppd Do you dip or chew tobacco: No 02/07/22 18:19 Respiratory Therapy Assessment DAILY Comment: Diagnosis: SEPSIS, PNEUMONIA, UTI 02/08/22 04:15 BiPap/CPAP ROUTINE Comment: Diagnosis: SEPSIS, PNEUMONIA, UTI 02/13/22 06:56 Oxygen Nasal Cannula 4 lpm Comment: Diagnosis: SEPSIS, PNEUMONIA, UTI Discharge Exam General Appearance: no apparent distress, obese Neurologic Exam: oriented x 3, cooperative Eye Exam: eyes nml inspection Ears, Nose, Throat Exam: moist mucous membranes Neck Exam: normal inspection Respiratory Exam: diminished breath sounds (fair to good air exchange), No crackles/rales, No rhonchi, No wheezing Cardiovascular Exam: regular rate/rhythm, normal heart sounds, No murmur Gastrointestinal/Abdomen Exam: soft, normal bowel sounds, No tenderness, No distention, No mass, No guarding, No rebound Back Exam: normal inspection, No rash Extremity Exam: normal inspection, No pedal edema, No swelling Skin Exam: normal color, warm, dry, No rash Final Diagnosis/Problem List - Final Discharge Diagnosis/Problem (1) COPD exacerbation Current Visit: Yes Status: Acute Assessment & Plan: Much improved. Will continue treating for aspiration pna, which is supported by culture results. Pt doesn't remember any aspiration per se but admits with her vomiting it may have been a possibility. Tx x 6 more days with antibiotics, and wean off steroid over the next 2 weeks. F/u with me in 1 week, and f/u with pulmonology. Code(s): J44.1 - CHRONIC OBSTRUCTIVE PULMONARY DISEASE W (ACUTE) EXACERBATION (2) Left lower lobe pneumonia Current Visit: Yes Status: Acute Code(s): J18.9 - PNEUMONIA, UNSPECIFIED ORGANISM - Discharge Disposition: Home, Self-Care Condition: Good Prescriptions: New Lactobacillus Acidophilus [Acidophilus TABLET] 1 tab PO BID #14 tablet Amox Tr/Potass Clav. 875 mg [Augmentin 875-125 Tablet] 875 mg PO BID #1 2 tablet Prednisone 10 mg [Deltasone 10 mg] 10 mg PO DAILY #35 tablet Albuterol/Ipratropium 3ml Neb* [DUONEB 0.5-3 MG/3 ml Neb] 3 ml IH QID 7 Days #28 units Amlodipine Besylate 5 mg [Norvasc 5 mg] 5 mg PO QAM #30 tablet Doxycycline Hyclate 100 mg [Vibramycin 100 MG] 100 mg PO BID #12 tab Continue Escitalopram Oxalate [Lexapro] 20 mg PO DAILY Meclizine HCl 25 mg [Antivert 25 mg] 25 mg PO DAILY PRN PRN PRN Reason: Dizziness Ropinirole HCl 0.5 mg [Requip 0.5 MG] 0.5 mg PO BID Nebivolol HCl 5 MG [Bystolic 5 MG] 5 mg PO DAILY Quetiapine Fumarate 100 mg [Seroquel 100 MG] 350 mg PO HS Prazosin HCl 2 mg PO HS Bupropion HCl [Wellbutrin Xl] 300 mg PO DAILY Apixaban [Eliquis] 2.5 mg PO BID Additional Instructions: A REFERRAL HAS BEEN SENT TO [facility]. THEY WILL CALL YOU AFTER YOU GET HOME TO MAKE AN APPOINTMENT TO COME SEE YOU. THEIR PHONE NUMBER IS [phone] Follow up with: JUMA WEBBER [ACTIVE STAFF] - (FOLLOW UP IN THREE WEEKS UPON DISCHARGE) GUILLERMO VEGA [ACTIVE STAFF] - 02/20/22 2:30 pm
[2022-02-15] MEDS: Lexapro PO SCH (10:03)
[2022-02-15] MEDS: solu-MEDROL 40 MG, Sterile H2O 10 ml 1 ML IV SCH ×2 (10:03)
[2022-02-15] MEDS: ELIQUIS 2.5 MG TABLET PO SCH (10:03)
[2022-02-15] MEDS: NORVASC 5 MG PO SCH (10:03)
[2022-02-15] MEDS: Wellbutrin XL 150 MG PO SCH (10:03)
== END 2022-02-15 11:42 | disposition home health service (06) | DRG 190 ==
LOC: ED 10:52 → OBSVTOIN 14:07 → MED SURG 14:07 → INTOOBSV 14:07 → MED SURG 14:08 → ICU 02-08 09:56 → MED SURG 02-09 17:12
PROVIDERS: ADMIT Family Medicine; ATTEND Family Medicine
DX: J44.1 Chronic obstructive pulmonary disease with (acute) exacerbation (principal); A40.9 Streptococcal sepsis, unspecified; J18.9 Pneumonia, unspecified organism; N39.0 Urinary tract infection, site not specified; I10 Essential (primary) hypertension; E11.9 Type 2 diabetes mellitus without complications; M54.9 Dorsalgia, unspecified; Z79.01 Long term (current) use of anticoagulants; Z79.899 Other long term (current) drug therapy; Z20.828 Contact with and (suspected) exposure to other viral communicable diseases; Z99.81 Dependence on supplemental oxygen; Z85.42 Personal history of malignant neoplasm of other parts of uterus; Z72.0 Tobacco use
CPT/HCPCS: 0241U; 36000; 36415; 36600; 71250; 74176; 80047; 80053; 80307; 81015; 82150; 82375; 82803; 82805; 82947; 83036; 83605; 83690; 83735; 83880; 84145; 84484; 85025; 85379; 85610; 85730; 87040; 87070; 87077; 87086; 87186; 93005; 93041; 94003; 94640; 94760; 94762; 96360; 96365; 96367; 96374; 99285; 99291; 96375; J0696; J1170; J1650; J1885; J2405; J2920; J2930; J7609; A9270-GY

== ENCOUNTER 2022-02-16 11:52 | Emergency (ER) | payer MEDICARE ==
[2022-02-16 12:24] VITALS: BP 147/85
--- NOTE | 2022-02-16 12:45 | ERPHSYRPT ---
- History of Present Illness Source: patient Exam Limitations: other (Poor historian) Patient Subjective Stated Complaint: C/O visual changes with a slight headache that started this morning. Describes "floating light specs" in front of her visual field and a "pressure" behind her eyes. Triage Nursing Assessment: Patient brought back to ED in a W/C. She is alert and oriented. NO current SOB; wearing 3L per N/C at this time from home. Patient able to see staff and items in room without difficulties; her glasses are on. Physician History: 62 yo wf who just was released from the hospital yesterday for pneumonia presents w a frontal headache x 2 hours. Pain is described as pressure and 3/10 on scale. She has blurry vision but denies focal weakness/fever/head trauma. Pt denies dyspnea/chest pain/stiff neck/N/V/D/abdominal pain. She has a h/o chronic vertigo but denies being dizzy at this time. Timing/Duration: other (2 hours) Quality: pressure Head Pain Location: frontal Severity of Pain-Max: moderate Severity of Pain-Current: mild Recent Head Trauma: no recent headache/trauma Associated Symptoms: denies symptoms Previous symptoms: no prior history Allergies/Adverse Reactions: aripiprazole [From Abilify] Allergy (Severe, Verified 02/16/22 12:09) Lightheadedness cyclobenzaprine HCl [From Flexeril] Allergy (Severe, Verified 02/16/22 12:09) Lightheadedness oxycodone [From Percocet] Allergy (Verified 02/16/22 12:09) Home Medications: Escitalopram Oxalate [Lexapro] 20 mg PO DAILY 03/30/20 [History] Meclizine HCl 25 mg [Antivert 25 mg] 25 mg PO DAILY PRN PRN 11/18/21 [History] Apixaban [Eliquis] 2.5 mg PO BID 02/07/22 [History] Bupropion HCl [Wellbutrin Xl] 300 mg PO DAILY 02/07/22 [History] Nebivolol HCl 5 MG [Bystolic 5 MG] 5 mg PO DAILY 02/07/22 [History] Prazosin HCl 2 mg PO HS 02/07/22 [History] Quetiapine Fumarate 100 mg [Seroquel 100 MG] 350 mg PO HS 02/07/22 [History] Ropinirole HCl 0.5 mg [Requip 0.5 MG] 0.5 mg PO BID 02/07/22 [History] Hx Tetanus, Diphtheria Vaccination/Date Given: Yes Hx Influenza Vaccination/Date Given: No Hx Pneumococcal Vaccination/Date Given: No Immunizations Up to Date: No Travel Risk - International Travel Have you traveled outside of the country in past 3 weeks: No - Coronavirus Screening Are you exhibiting any of the following symptoms?: No Close contact with a COVID-19 positive Pt in past 14-21 Days: No - Vaccine Status Have you recieved a Covid-19 vaccination: No - Review of Systems Constitutional: No Symptoms Eyes: No Symptoms Ears, Nose, & Throat: No Symptoms Respiratory: No Symptoms Cardiac: No Symptoms Abdominal/Gastrointestinal: No Symptoms Genitourinary Symptoms: No Symptoms Musculoskeletal: No Symptoms Skin: No Symptoms Neurological: Headache Psychological: No Symptoms Endocrine: No Symptoms Hematologic/Lymphatic: No Symptoms Immunological/Allergic: No Symptoms - Past Medical History Pertinent Past Medical History: Yes Neurological History: Migraines ENT History: Cataracts, Glaucoma Cardiac History: High Cholesterol, Hypertension Respiratory History: COPD, Pneumonia Endocrine Medical History: Diabetes Type II Musculoskeletal History: Fractures, Osteoarthritis GI Medical History: GERD, Gallbladder Disease History: No Pertinent History Psycho-Social History: Anxiety Female Reproductive Disorders: Uterine Cancer, Other Other Medical History: vertigo, insomnia - Past Surgical History Past Surgical History: Yes Neuro Surgical History: No Pertinent History Cardiac: No Pertinent History Respiratory: No Pertinent History Gastrointestinal: Cholecystectomy Genitourinary: No Pertinent History Musculoskeletal: Orthopedic Surgery Female Surgical History: Hysterectomy, Tubal Ligation, Other Other Surgical History: left foot X 4,leep procedure. laser eye surgery (both eyes). ORIF of rt leg (pins and rods in leg) - Social History Smoking Status: Current every day smoker How long have you smoked: 45 Exposure to second hand smoke: No Drug Use: none Patient Lives Alone: No - Nursing Vital Signs Nursing Vital Signs: Initial Vital Signs Temperature 98 F 02/16/22 12:13 Pulse Rate 78 02/16/22 12:13 Blood Pressure 147/85 02/16/22 12:13 O2 Sat by Pulse Oximetry 95 02/16/22 12:13 Pain Scale Pain Intensity 3 Hypertensive - Physical Exam General Appearance: no apparent distress Eye Exam: PERRL/EOMI, eyes nml inspection Ears, Nose, Throat Exam: normal ENT inspection, TMs normal, pharynx normal, moist mucous membranes Neck Exam: normal inspection, non-tender, supple, full range of motion, No meningismus, No mass, No Brudzinski, No Kernig's, No carotid bruit Respiratory Exam: crackles/rales (Faint rales at bases B) Cardiovascular Exam: regular rate/rhythm, normal heart sounds, normal peripheral pulses, capillary refill <2 sec, No murmur Gastrointestinal/Abdominal Exam: soft, normal bowel sounds, No tenderness Back Exam: normal inspection, normal range of motion Extremity Exam: normal inspection, normal range of motion Mental Status Exam: alert, oriented x 3, 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 Exam: normal hearing, normal speech, PERRL Coordination/Gait Exam: normal cerebellar function Motor/Sensory Exam: no motor deficit, no sensory deficit, no pronator drift, negative Babinski's sign DTR Exam: bicep (R): 2+, bicep (L): 2+ Skin Exam: normal color, warm, dry, No rash Lymphatic Exam: No adenopathy SpO2 Interpretation: normal SpO2: 95 O2 Delivery: Room Air - Course Nursing assessment & vital signs reviewed: Yes - CT Exams Head CT Interpretation: Discussed w/radiologist (CT head neg per Rad) Ordered Tests: Active Orders 24 hr Category Date Time Status HEAD WITHOUT CONTRAST [CT] Stat Exams 02/16/22 12:39 Completed Medication Summary Discontinued Medications Generic Name Dose Route Start Last Admin Trade Name Jose PRN Reason Stop Dose Admin Ketorolac Tromethamine 15 mg 02/16/22 13:47 02/16/22 13:55 Ketorolac Tromethamine 30 Mg/Ml Inj IM 02/16/22 13:48 15 mg STAT ONE Administration Ketorolac Tromethamine Confirm 02/16/22 13:52 Ketorolac Tromethamine 30 Mg/Ml Inj Administered 02/16/22 13:53 Dose 30 mg .ROUTE .STK-MED ONE - Progress Progress: improved Progress Note: 02/16/22 13:48 15mg IM Toradol Pt wo focal weakness/confusion/mental status changes in ER Counseled pt/family regarding: diagnosis, need for follow-up, rad results - Departure Departure Disposition: Home Clinical Impression: Headache Condition: Stable Critical Care Time: No Referrals: RASTA MCGHEE FNP [Primary Care Provider] - Follow up/PCP as directed Instructions: Headache, Adult (DC) Additional Instructions: Follow up with your family MD in AM Return to ER for increasing pain/focal weakness/Temperature greater than 100.5/Confusion
--- NOTE | 2022-02-16 13:20 | XRAY ---
Indication: Headache and blurry vision. Multiple contiguous axial images obtained through the head without contrast. Comparison: September 06, 2016 Normal appearing brain parenchyma, ventricles, and bony calvarium. Visualized paranasal sinuses and mastoid air cells are clear. Impression: Continued normal CT head without contrast exam.
[2022-02-16] MEDS ORDERED: TORAdol 30 mg Injection IM ONE (13:47)
[2022-02-16] MEDS ORDERED: TORAdol 30 mg Injection ONE (13:52)
[2022-02-16 14:06] VITALS: PULSE 75
[2022-02-16 21:18] VITALS: O2SAT 95
== END 2022-02-16 14:03 | disposition home or self-care (01) ==
LOC: ED 11:52
DX: R51.9 Headache, unspecified (principal); H53.8 Other visual disturbances; E78.5 Hyperlipidemia, unspecified; I10 Essential (primary) hypertension; E11.9 Type 2 diabetes mellitus without complications; Z72.0 Tobacco use; Z79.01 Long term (current) use of anticoagulants; Z79.899 Other long term (current) drug therapy; Z28.310 Unvaccinated for COVID-19
CPT/HCPCS: 70450; 96372; 99283; J1885

== ENCOUNTER 2022-02-25 09:44 | Emergency (ER) | payer MEDICARE ==
[2022-02-25 10:11] LABS: Hematocrit 46.2 % (35-47); Hemoglobin 14.2 g/dL (12.0-16.0); Mean Cell Volume 100.2 fL (78-100); Mean Corpuscular Hemoglobin 30.8 pg (26-32); Mean Corpuscular Hgb Concent. 30.7 g/dL (32-36); Mean Platelet Volume 8.4 fL (7.5-11.0); Platelet Count 209 x10^3/uL (150-450); Red Blood Count 4.61 x10^6/uL (4.1-5.4); Red Cell Distribution Width 14.7 % (11.5-14.0); White Blood Count 7.8 x10^3/uL (4.0-10.5)
[2022-02-25 10:19] LABS: Appearance CLEAR (CLEAR); Bilirubin NEGATIVE (NEGATIVE); Dipstick done @ ? MAIN LAB; Glucose NEGATIVE (NEGATIVE); Ketones NEGATIVE (NEGATIVE); Nitrite NEGATIVE (NEGATIVE); Protein,Urine Dip NEGATIVE (Negative); RBC NEGATIVE Ery/ul (0-5); Specific Gravity >=1.030 (1.005-1.025); Urobilinogen 0.2 mg/dL (0-1)
[2022-02-25 10:20] LABS: Epithelial Cells RARE /HPF (FEW); Mucus SLIGHT /HPF (NEGATIVE); RBC 0-2 /HPF (0-2)
[2022-02-25 10:21] LABS: Urine Cultured Indicated? NO
[2022-02-25 10:24] LABS: ALBUMIN 3.9 g/dL (3.5-5.0); ALKALINE PHOSPHATASE 85 U/L (38-126); ANION GAP 9.8 MEQ/L (5-15); BLOOD UREA NITROGEN 13 mg/dL (7-17); CHLORIDE 99 mmol/L (98-107); Carbon Dioxide 34 mmol/L (22-30); Creatinine 1 0.47 mg/dL (0.52-1.04); EST GLOMERULAR FILTRATION RATE > 60.0 ML/MIN; Glucose 107 mg/dL (74-106); Potassium 4.4 mmol/L (3.5-5.1); SGOT/AST 36 U/L (14-36); SGPT/ALT 61 U/L (0-35); SODIUM 138 mmol/L (137-145); Total Protein 6.7 g/dL (6.3-8.2)
[2022-02-25] MEDS ORDERED: Zofran 4 MG/2 ML VIAL IV ONE (10:48)
[2022-02-25] MEDS ORDERED: MORPHINE SULFATE 2 MG INJ IV ONE (10:48)
[2022-02-25] MEDS ORDERED: Zofran 4 MG/2 ML VIAL ONE (10:51)
[2022-02-25] MEDS ORDERED: MORPHINE SULFATE 2 MG INJ ONE (10:51)
[2022-02-25 11:16] VITALS: O2SAT 96
--- NOTE | 2022-02-25 12:48 | ERPHSYRPT ---
- History of Present Illness Time Seen by Provider: 02/25/22 10:41 Historian: patient Exam Limitations: no limitations Patient Subjective Stated Complaint: Left sided flank pain Triage Nursing Assessment: Patient brought back to ED per w/c and transferred self to bed. Patient A+O x3. Patient's skin pink, warm and dry. Patient complains of left sided flank pain only when taking a deep breath 11/30. Patient just finished atb for UTI on 02/21/2022. Patient denies frequency, urgency or dysuria when urinating. Patient also denies N/V or diarrhea. Physician History: 62 years old female with history of chronic respiratory failure secondary to COPD on 3 L oxygen, tobacco abuse who recently finished course of antibiotics for UTI presented in the ER with left flank pain since yesterday. Patient reports it hurts that same spot to take a deep breath and also with movement/twisting and better with being still. Denies associated urinary complaints. No nausea or vomiting. Moderate to severe pain which is reproducible with movements and deep breathing/palpation. No fever or chills reported. Timing/Duration: day(s) (1), intermittent, worse Activities at Onset: activity Quality: sharpness Abdominal Pain Onset Location: flank Pain Radiation: no radiation Severity of Pain-Max: severe Severity of Pain-Current: severe Modifying Factors: Worsens With: coughing, position Associated Symptoms: No diarrhea, No fever/chills Previous symptoms: no prior history Allergies/Adverse Reactions: aripiprazole [From Abilify] Allergy (Severe, Verified 02/25/22 09:51) Lightheadedness cyclobenzaprine HCl [From Flexeril] Allergy (Severe, Verified 02/25/22 09:51) Lightheadedness oxycodone [From Percocet] Allergy (Verified 02/25/22 09:51) Home Medications: Escitalopram Oxalate [Lexapro] 20 mg PO DAILY 03/30/20 [History] Meclizine HCl 25 mg [Antivert 25 mg] 25 mg PO DAILY PRN PRN 11/18/21 [History] Apixaban [Eliquis] 2.5 mg PO BID 02/07/22 [History] Bupropion HCl [Wellbutrin Xl] 300 mg PO DAILY 02/07/22 [History] Nebivolol HCl 5 MG [Bystolic 5 MG] 5 mg PO DAILY 02/07/22 [History] Prazosin HCl 2 mg PO HS 02/07/22 [History] Quetiapine Fumarate 100 mg [Seroquel 100 MG] 350 mg PO HS 02/07/22 [Hist ory] Ropinirole HCl 0.5 mg [Requip 0.5 MG] 0.5 mg PO BID 02/07/22 [History] Hx Tetanus, Diphtheria Vaccination/Date Given: Yes Hx Influenza Vaccination/Date Given: No Hx Pneumococcal Vaccination/Date Given: No Immunizations Up to Date: Yes Travel Risk - International Travel Have you traveled outside of the country in past 3 weeks: No - Coronavirus Screening Are you exhibiting any of the following symptoms?: No Close contact with a COVID-19 positive Pt in past 14-21 Days: No - Vaccine Status Have you recieved a Covid-19 vaccination: No - Review of Systems Constitutional: No Symptoms Eyes: No Symptoms Respiratory: No Symptoms Cardiac: No Symptoms Abdominal/Gastrointestinal: Abdominal Pain Genitourinary Symptoms: No Symptoms Musculoskeletal: No Symptoms Skin: No Symptoms Neurological: No Symptoms Psychological: No Symptoms Endocrine: No Symptoms Hematologic/Lymphatic: No Symptoms Immunological/Allergic: No Symptoms - Past Medical History Pertinent Past Medical History: Yes Neurological History: Migraines ENT History: Cataracts, Glaucoma Cardiac History: High Cholesterol, Hypertension Respiratory History: COPD, Pneumonia Endocrine Medical History: Diabetes Type II Musculoskeletal History: Fractures, Osteoarthritis GI Medical History: GERD, Gallbladder Disease History: No Pertinent History Psycho-Social History: Anxiety Female Reproductive Disorders: Uterine Cancer, Other Other Medical History: vertigo, insomnia - Past Surgical History Past Surgical History: Yes Neuro Surgical History: No Pertinent History Cardiac: No Pertinent History Respiratory: No Pertinent History Gastrointestinal: Cholecystectomy Genitourinary: No Pertinent History Musculoskeletal: Orthopedic Surgery Female Surgical History: Hysterectomy, Tubal Ligation, Other Other Surgical History: left foot X 4,leep procedure. laser eye surgery (both eyes). ORIF of rt leg (pins and rods in leg) - Social History Smoking Status: Former smoker How long have you smoked: 45 Exposure to second hand smoke: No Drug Use: none Patient Lives Alone: Yes - Nursing Vital Signs Nursing Vital Signs: Initial Vital Signs Temperature 97.7 F 02/25/22 09:53 Pulse Rate 78 02/25/22 09:53 Respiratory Rate 18 02/25/22 09:53 Blood Pressure 124/87 02/25/22 09:53 O2 Sat by Pulse Oximetry 92 L 02/25/22 09:53 Pain Scale Pain Intensity 4 - Physical Exam General Appearance: no apparent distress, alert Eye Exam: PERRL/EOMI Ears, Nose, Throat Exam: normal ENT inspection, TMs normal, pharynx normal Neck Exam: normal inspection, supple, full range of motion Respiratory Exam: normal breath sounds, lungs clear Cardiovascular Exam: regular rate/rhythm, normal heart sounds Gastrointestinal/Abdomen Exam: soft, normal bowel sounds, tenderness (left flank ) Back Exam: normal inspection, normal range of motion, No CVA tenderness Extremity Exam: normal inspection, normal range of motion Neurologic Exam: alert, oriented x 3, cooperative Skin Exam: normal color SpO2 Interpretation: normal SpO2: 96 O2 Delivery: Room Air Ordered Tests: Active Orders 24 hr Category Date Time Status ABDOMEN AND PELVIS W/0 CONTRAS [CT] Stat Exams 02/25/22 10:48 Taken CHEST 1 VIEW (PORTABLE) Stat Exams 02/25/22 10:03 Taken CBC Stat Lab 02/25/22 10:00 Completed CMP Stat Lab 02/25/22 10:00 Completed LIPASE Stat Lab 02/25/22 10:00 Completed TROPONIN Q3H Lab 02/25/22 10:00 Completed TROPONIN Q3H Lab 02/25/22 14:00 Ordered TROPONIN Q3H Lab 02/25/22 17:00 Ordered TROPONIN Q3H Lab 02/25/22 20:00 Ordered UA W/RFX CULTURE Stat Lab 02/25/22 10:00 Completed Medication Summary Discontinued Medications Generic Name Dose Route Start Last Admin Trade Name Jose PRN Reason Stop Dose Admin Morphine Sulfate 2 mg 02/25/22 10:48 02/25/22 10:52 Morphine Sulfate 2 Mg/Ml Inj IV 02/25/22 10:49 2 mg STAT ONE Administration Morphine Sulfate Confirm 02/25/22 10:51 Morphine Sulfate 2 Mg/Ml Inj Administered 02/25/22 10:52 Dose 2 mg .ROUTE .STK-MED ONE Ondansetron HCl 4 mg 02/25/22 10:48 02/25/22 10:51 Ondansetron Hcl 4 Mg/2 Ml Vial IV 02/25/22 10:49 4 mg STAT ONE Administration Ondansetron HCl Confirm 02/25/22 10:51 Ondansetron Hcl 4 Mg/2 Ml Vial Administered 02/25/22 10:52 Dose 4 mg .ROUTE .STK-MED ONE Lab/Rad Data: Laboratory Result Diagrams 02/25/22 10:00 02/25/22 10:00 Laboratory Results 02/25/22 02/25/22 02/25/22 Range/Units 10:00 10:00 10:00 WBC (4.0-10.5) x10^3/uL RBC (4.1-5.4) x10^6/uL Hgb (12.0-16.0) g/dL Hct (35-47) % MCV (78-100) fL MCH (26-32) pg MCHC (32-36) g/dL RDW (11.5-14.0) % Plt Count (150-450) x10^3/uL MPV (7.5-11.0) fL Sodium 138 (137-145) mmol/L Potassium 4.4 (3.5-5.1) mmol/L Chloride 99 (98-107) mmol/L Carbon Dioxide 34 H (22-30) mmol/L Anion Gap 9.8 (5-15) MEQ/L BUN 13 (7-17) mg/dL Creatinine 0.47 L (0.52-1.04) mg/dL Estimated GFR > 60.0 ML/MIN Glucose 107 H (74-106) mg/dL Calcium 9.0 (8.4-10.2) mg/dL Total Bilirubin 0.80 (0.2-1.3) mg/dL AST 36 (14-36) U/L ALT 61 H (0-35) U/L Alkaline Phosphatase 85 (38-126) U/L Troponin I < 0.012 (0.000-0.034) ng/mL Serum Total Protein 6.7 (6.3-8.2) g/dL Albumin 3.9 (3.5-5.0) g/dL Lipase 128 (23-300) U/L Urinalys Dipstick Clnc Urine Color (YELLOW) Urine Appearance (CLEAR) Urine pH (5-6) Ur Specific [place] (1.005-1.025) POC Urine Protein Conf (Negative) Urine Ketones (NEGATIVE) Urine Nitrite (NEGATIVE) Urine Bilirubin (NEGATIVE) Urine Urobilinogen (0-1) mg/dL Urine Leukocytes (NEGATIVE) Urine WBC (Auto) (0-5) /HPF Urine RBC (Auto) (0-2) /HPF U Hyaline Cast (Auto) (0-2) /LPF U Epithel Cells (Auto) (FEW) /HPF Urine Bacteria (Auto) (NEGATIVE) /HPF Urine RBC (0-5) Edin/ul Urine Mucus (Auto) (NEGATIVE) /HPF Ur Culture Indicated? Urine Glucose (NEGATIVE) mg/dL 02/25/22 02/25/22 Range/Units 10:00 10:00 WBC 7.8 (4.0-10.5) x10^3/uL RBC 4.61 (4.1-5.4) x10^6/uL Hgb 14.2 (12.0-16.0) g/dL Hct 46.2 (35-47) % MCV 100.2 H (78-100) fL MCH 30.8 (26-32) pg MCHC 30.7 L (32-36) g/dL RDW 14.7 H (11.5-14.0) % Plt Count 209 (150-450) x10^3/uL MPV 8.4 (7.5-11.0) fL Sodium (137-145) mmol/L Potassium (3.5-5.1) mmol/L Chloride (98-107) mmol/L Carbon Dioxide (22-30) mmol/L Anion Gap (5-15) MEQ/L BUN (7-17) mg/dL Creatinine (0.52-1.04) mg/dL Estimated GFR ML/MIN Glucose (74-106) mg/dL Calcium (8.4-10.2) mg/dL Total Bilirubin (0.2-1.3) mg/dL AST (14-36) U/L ALT (0-35) U/L Alkaline Phosphatase (38-126) U/L Troponin I (0.000-0.034) ng/mL Serum Total Protein (6.3-8.2) g/dL Albumin (3.5-5.0) g/dL Lipase (23-300) U/L Urinalys Dipstick Clnc MAIN LAB Urine Color YELLOW (YELLOW) Urine Appearance CLEAR (CLEAR) Urine pH 6.0 (5-6) Ur Specific [place] >=1.030 A (1.005-1.025) POC Urine Protein Conf NEGATIVE (Negative) Urine Ketones NEGATIVE (NEGATIVE) Urine Nitrite NEGATIVE (NEGATIVE) Urine Bilirubin NEGATIVE (NEGATIVE) Urine Urobilinogen 0.2 (0-1) mg/dL Urine Leukocytes NEGATIVE (NEGATIVE) Urine WBC (Auto) 3-5 A (0-5) /HPF Urine RBC (Auto) 0-2 (0-2) /HPF U Hyaline Cast (Auto) 3-5 A (0-2) /LPF U Epithel Cells (Auto) RARE (FEW) /HPF Urine Bacteria (Auto) NONE (NEGATIVE) /HPF Urine RBC NEGATIVE (0-5) Edin/ul Urine Mucus (Auto) SLIGHT A (NEGATIVE) /HPF Ur Culture Indicated? NO Urine Glucose NEGATIVE (NEGATIVE) mg/dL - Progress Progress: improved, pain not gone completely Progress Note: 02/25/22 12:46 62 years old is evaluated for left flank pain. She is given symptomatic treatment, on reevaluation pain is much better. Chest x-ray showed some atelectasis but no obvious pneumonia on the left. Normal white count, unremarkable chemistries and no UTI. CT abdomen pelvis negative for nephrolithiasis, pyelonephritis or any other acute findings on the left side. It does show some questionable distended appendix but patient does not have any tenderness on the right side at all. Recommended continue with pain medications, deep breathing exercises and outpatient follow-up. Discussed signs symptoms of worsening needing return to ER which she seems understanding. Stable for discharge. Counseled pt/family regarding: lab results, diagnosis, need for follow-up, rad results, smoking cessation - Departure Departure Disposition: Home Clinical Impression: Flank pain Condition: Stable Critical Care Time: No Referrals: RASTA MCGHEE FNP [Primary Care Provider] - Follow up/PCP as directed (1-2 days for re evaluation) Instructions: Flank Pain Additional Instructions: Continue with pain medication which you have at home as needed/recommended. Fo llow-up with primary care for reevaluation. Return to ER for worsening pain, difficulty urination, difficulty breathing, fever chills etc.
[2022-02-25 12:49] VITALS: BP 122/80
[2022-02-25 13:03] VITALS: PULSE 76
--- NOTE | 2022-02-25 17:20 | XRAY ---
Indication: Left flank pain. Short of breath. Recent pneumonia. Multiple contiguous axial images obtained through the abdomen and pelvis without contrast using renal stone protocol. Comparison: February 07, 2022 Lung bases demonstrates moderate clearing of previous left lower lobe consolidation with mild residual and tiny effusion. Minimal bibasilar subsegmental atelectasis. Heart not enlarged. No renal calculus or evidence for obstructive uropathy in either system. Noncontrasted stomach and bowel loops remain nonobstructed again with normal appendix. Mild diffuse scattered colonic fecal debris throughout. Again mild fatty liver, splenic calcified granuloma, cholecystectomy, and hysterectomy. No free fluid/air. Remaining liver, pancreas, spleen, adrenal glands, kidneys, ureters, and bladder are unremarkable for noncontrast exam. Again mild scattered aortoiliac calcifications. Impression: 1. Again negative for renal calculus or evidence for obstructive uropathy. 2. Improving left lower lobe consolidating pneumonia with mild residual. 3. New mild diffuse fecal stasis. 4. Again fatty liver, arteriosclerotic disease, and old granulomatous disease. Comment: Preliminary interpretation made by C. No critical discrepancy.
--- NOTE | 2022-02-25 17:22 | XRAY ---
Indication: Short of breath. Recent pneumonia. Comparison: February 11, 2021 Portable chest again hyperinflated with new minimal left base infiltrate/atelectasis/effusion. Remaining heart and lungs unremarkable again with a few incidental calcified granulomas. Bony thorax intact.
== END 2022-02-25 12:56 | disposition home or self-care (01) ==
LOC: ED 09:44
DX: R10.9 Unspecified abdominal pain (principal); J96.10 Chronic respiratory failure, unspecified whether with hypoxia or hypercapnia; Z99.81 Dependence on supplemental oxygen; J44.9 Chronic obstructive pulmonary disease, unspecified; E78.5 Hyperlipidemia, unspecified; I10 Essential (primary) hypertension; E11.9 Type 2 diabetes mellitus without complications; Z79.01 Long term (current) use of anticoagulants; Z79.899 Other long term (current) drug therapy; Z28.310 Unvaccinated for COVID-19
CPT/HCPCS: 36000; 36415; 71045; 74176; 80053; 81015; 83690; 84484; 85027; 96374; 96375; 99284; J2270; J2405

== ENCOUNTER 2024-05-08 14:58 | Observation (INO) | payer MEDICARE, OTHER ==
--- NOTE | 2024-05-08 15:36 | ERPHSYRPT ---
- History of Present Illness Time Seen by Provider: 05/08/24 15:05 Source: patient Exam Limitations: no limitations Patient Subjective Stated Complaint: PT. REPORTS, "I HAVE BEEN MORE AND MORE SOB FOR ABOUT 3 DAYS, I'VE BEEN COUGHING UP THICK YELLOW STUFF, MY EYES ARE PUFFY, I'M CONSTIPATED AND I HAVE NO APPETITE." Triage Nursing Assessment: PT. ARRIVED BY AMBULANCE, A&OX3, SKIN P/W/D, PERIORBITAL EDEMA PRESENT, AUDIBLE WHEEZING AND USE OF ACCESSORY MUSCLES. ABLE TO MOVE ALL 4 EXTREMITIES. Physician History: 64 years old female with history of COPD with chronic respiratory failure on 2 L oxygen as needed, tobacco abuse, hypertension, chronic pain presented in the ER with complaints of increasing cough productive of yellow-green sputum moderate in amount with associated increasing shortness of breath. Patient reports for the last week and a half she lost her oxygen concentrator and her oxygen was dropping an 88% on room air. Denies any chest pain fever or chills. Patient has no history of coronary artery disease. Patient reports no known sick contact. She is given Solu-Medrol and DuoNeb and route and feeling much better and currently on 2 L oxygen with saturation around 93%. Allergies/Adverse Reactions: aripiprazole [From Abilify] Allergy (Severe, Verified 02/25/22 09:51) Lightheadedness cyclobenzaprine HCl [From Flexeril] Allergy (Severe, Verified 02/25/22 09:51) Lightheadedness oxycodone [From Percocet] Allergy (Verified 02/25/22 09:51) Home Medications: Escitalopram Oxalate [Lexapro] 20 mg PO DAILY 03/30/20 [History] Nebivolol HCl 5 MG [Bystolic 5 MG] 5 mg PO DAILY 02/07/22 [History] Prazosin HCl 2 mg PO HS 02/07/22 [History] Quetiapine Fumarate 100 mg [Seroquel 100 MG] 300 mg PO HS 02/07/22 [History] Ropinirole HCl 0.5 mg [Requip 0.5 MG] 0.5 mg PO BID 02/07/22 [History] buPROPion HCL [Wellbutrin Xl] 300 mg PO DAILY 02/07/22 [History] Atorvastatin Calcium 10 mg PO DAILY 05/08/24 [History] Hydrocodone/Acetaminophen [Hydrocodone-Acetamin 10-325 mg] 1 each PO QID 05/08/24 [History] [place]-3/Dha/Epa/Fish Oil [Fish Oil 1,000 mg Softgel] 1 tab PO DAILY 05/08/24 [History] Omeprazole 10 mg PO DAILY 05/08/24 [History] Prazosin HCl 2 mg PO DAILY 05/08/24 [History] Hx Tetanus, Diphtheria Vaccination/Date Given: Yes Hx Influenza Vaccination/Date Given: No Hx Pneumococcal Vaccination/Date Given: No Immunizations Up to Date: No Travel Risk - International Travel Have you traveled outside of the country in past 3 weeks: No - Emerging Infectious Disease Are you exhibiting symptoms associated with any current EIDs: Yes Symptoms: Cough: New Onset, Shortness of Breath - Review of Systems Constitutional: Fatigue Eyes: No Symptoms Ears, Nose, & Throat: No Symptoms Respiratory: Cough, Dyspnea, Dyspnea on Exertion (PACK), Wheezing Cardiac: No Symptoms Abdominal/Gastrointestinal: No Symptoms Genitourinary Symptoms: No Symptoms Musculoskeletal: Arthralgias, Back Pain Skin: No Symptoms Neurological: No Symptoms Endocrine: No Symptoms Hematologic/Lymphatic: No Symptoms - Past Medical History Pertinent Past Medical History: Yes Neurological History: No Pertinent History ENT History: No Pertinent History Cardiac History: High Cholesterol, Hypertension Respiratory History: COPD, Emphysema Endocrine Medical History: No Pertinent History Musculoskeletal History: No Pertinent History GI Medical History: GERD History: No Pertinent History Psycho-Social History: Anxiety, Depression Female Reproductive Disorders: No Pertinent History Other Medical History: RESTLESS LEG SYNDROME, CHRONIC LOW BACK PAIN - Past Surgical History Past Surgical History: Yes Neuro Surgical History: No Pertinent History Cardiac: No Pertinent History Respiratory: No Pertinent History Gastrointestinal: Cholecystectomy Genitourinary: No Pertinent History Musculoskeletal: No Pertinent History Female Surgical History: Tubal Ligation Other Surgical History: LEFT FOOT X 4 FOR OSTEOMYELITIS, RT. LEG FOR FRACTURE, - Social History Smoking Status: Current every day smoker How long have you smoked: 40 + YEARS Exposure to second hand smoke: No Drug Use: none Patient Lives Alone: Yes - Social Determinants of Health Will the patient participate in the screening: Declined to provide - Nursing Vital Signs Nursing Vital Signs: Initial Vital Signs Temperature 98.1 F 05/08/24 15:01 Pulse Rate 72 05/08/24 15:01 Respiratory Rate 24 05/08/24 15:01 Blood Pressure 149/80 05/08/24 15:01 O2 Sat by Pulse Oximetry 77 L 05/08/24 15:01 Pain Scale Pain Intensity 0 - Physical Exam General Appearance: no apparent distress, alert Eye Exam: PERRL/EOMI Ears, Nose, Throat Exam: hearing grossly normal, normal ENT inspection Neck Exam: normal inspection, non-tender, supple, full range of motion Respiratory Exam: diminished breath sounds, wheezing Cardiovascular/Chest Exam: normal heart sounds, regular rate/rhythm Abdominal/Gastrointestinal Exam: soft, normal bowel sounds, No tenderness Extremity Exam: non-tender, normal range of motion Neurologic Exam: alert, oriented x 3, cooperative, doctor of naprapathy II-XII nml as tested Skin Exam: normal color SpO2 Interpretation: O2 applied SpO2: 92 O2 Delivery: Nasal Cannula (2 L) - Course EKG Interpreted by Me: RATE (82), Sinus Rhythm, Right [place] Deviation, NORMAL INTERVALS, Q-wave Ordered Tests: Active Orders 24 hr Category Date Time Status [place] [employer] STAT Care 05/08/24 15:28 Active EKG-ER Only STAT Care 05/08/24 15:28 Active Oxygen-ED Only Nasal Cannula 2 lpm Care 05/08/24 15:28 Active CHEST 1 VIEW (PORTABLE) Stat Exams 05/08/24 15:28 Completed BLOOD CULTURE Stat Lab 05/08/24 15:50 Received CBC W DIFF Stat Lab 05/08/24 15:43 Completed CMP Stat Lab 05/08/24 15:43 Completed Lactic Acid Stat Lab 05/08/24 15:53 Completed MAGNESIUM Stat Lab 05/08/24 15:43 Completed TROPONIN Q4H Lab 05/08/24 15:43 Completed TROPONIN Q4H Lab 05/08/24 19:30 Ordered TROPONIN Q4H Lab 05/08/24 23:30 Ordered Respiratory Therapy Assessment DAILY RT 05/08/24 15:46 Active Medication Summary Generic Name Dose Route Start Last Admin Trade Name Freq PRN Reason Stop Dose Admin Azithromycin 500 mg in 250 mls @ 250 mls/hr 05/08/24 17:10 Zithromax 500 Mg/ 250 Ml Nacl Premix IV 05/08/24 18:09 STAT STA Ceftriaxone Sodium 2 gm in 100 mls @ 200 mls/hr 05/08/24 17:10 Rocephin 2 Gm/100 Ml Nacl IV 05/08/24 17:39 STAT ONE Discontinued Medications Generic Name Dose Route Start Last Admin Trade Name Jose PRN Reason Stop Dose Admin Albuterol/Ipratropium 3 ml 05/08/24 15:28 05/08/24 15:42 Ipratropium/Albuterol Sulfate 3 Ml Ampul.Neb IH 05/08/24 15:29 3 ml STAT ONE Administration Albuterol/Ipratropium Confirm 05/08/24 15:40 Ipratropium/Albuterol Sulfate 3 Ml Ampul.Neb Administered 05/08/24 15:41 Dose 3 ml IH .STK-MED ONE Ceftriaxone Sodium Confirm 05/08/24 17:17 Rocephin 2 Gm/100 Ml Nacl Administered 05/08/24 17:18 Dose 2 gm in 100 mls @ ud IV .STK-MED ONE Lab/Rad Data: Laboratory Result Diagrams 05/08/24 15:43 05/08/24 15:43 Laboratory Results 05/08/24 05/08/24 05/08/24 Range/Units 15:53 15:52 15:43 WBC (3.98-10.04) x10^3/uL RBC (3.93-5.22) x10^6/uL Hgb (11.2-15.7) g/dL Hct (34.1-44.9) % MCV (79.4-94.8) fL MCH (25.6-32.2) pg MCHC (32.2-35.5) g/dL RDW (11.7-14.4) % Plt Count (182-369) x10^3/uL MPV (9.4-12.3) fL Gran % (34.0-71.1) % Immature Gran % (Auto) (0.001-0.429) % Nucleat RBC Rel Count (0.00-0.2) % Eos # (Auto) (0.04-0.36) x10^3/uL Immature Gran # (Auto) (0.001-0.031) x10^3u/L Absolute Lymphs (auto) (1.18-3.74) x10^3/uL Absolute Monos (auto) (0.24-0.86) x10^3/uL Absolute Nucleated RBC (0.00-0.012) x10^3u/L Lymphocytes % (19.3-51.7) % Monocytes % (4.7-12.5) % Eosinophils % (0.7-5.8) % Basophils % (0.1-1.2) % Absolute Granulocytes (1.56-6.13) x10^3/uL Basophils # (0.01-0.08) x10^3/uL Sodium (135-145) mmol/L Potassium (3.5-5.1) mmol/L Chloride (98-107) mmol/L Carbon Dioxide (22-30) mmol/L Anion Gap (5-15) MEQ/L BUN (7-17) mg/dL Creatinine (0.52-1.04) mg/dL Estimated GFR ML/MIN Glucose (74-106) mg/dL Lactic Acid 1.4 (0.4-2.0) Calcium (8.4-10.2) mg/dL Magnesium (1.6-2.3) mg/dL Total Bilirubin (0.2-1.3) mg/dL AST (14-36) U/L ALT (0-35) U/L Alkaline Phosphatase (38-126) U/L Troponin I < 0.012 (0.000-0.033) ng/mL Serum Total Protein (6.3-8.2) g/dL Albumin (3.5-5.0) g/dL Influenza Type A Ag NEGATIVE (NEGATIVE) Influenza Type B Ag NEGATIVE (NEGATIVE) RSV (PCR) NEGATIVE (NEGATIVE) SARS-CoV-2 (PCR) NEGATIVE (NEGATIVE) 05/08/24 05/08/24 Range/Units 15:43 15:43 WBC 6.4 (3.98-10.04) x10^3/uL RBC 5.65 H (3.93-5.22) x10^6/uL Hgb 15.1 (11.2-15.7) g/dL Hct 51.8 H (34.1-44.9) % MCV 91.7 (79.4-94.8) fL MCH 26.7 (25.6-32.2) pg MCHC 29.2 L (32.2-35.5) g/dL RDW 19.1 H (11.7-14.4) % Plt Count 169 L (182-369) x10^3/uL MPV 8.9 L (9.4-12.3) fL Gran % 78.0 H (34.0-71.1) % Immature Gran % (Auto) 0.5 H (0.001-0.429) % Nucleat RBC Rel Count 0.0 (0.00-0.2) % Eos # (Auto) 0.03 L (0.04-0.36) x10^3/uL Immature Gran # (Auto) 0.03 (0.001-0.031) x10^3u/L Absolute Lymphs (auto) 0.93 L (1.18-3.74) x10^3/uL Absolute Monos (auto) 0.39 (0.24-0.86) x10^3/uL Absolute Nucleated RBC 0.00 (0.00-0.012) x10^3u/L Lymphocytes % 14.6 L (19.3-51.7) % Monocytes % 6.1 (4.7-12.5) % Eosinophils % 0.5 L (0.7-5.8) % Basophils % 0.3 (0.1-1.2) % Absolute Granulocytes 4.99 (1.56-6.13) x10^3/uL Basophils # 0.02 (0.01-0.08) x10^3/uL Sodium 137 (135-145) mmol/L Potassium 4.4 (3.5-5.1) mmol/L Chloride 96 L (98-107) mmol/L Carbon Dioxide 38 H (22-30) mmol/L Anion Gap 8.2 (5-15) MEQ/L BUN 15 (7-17) mg/dL Creatinine 0.59 (0.52-1.04) mg/dL Estimated GFR 101.8 ML/MIN Glucose 111 H (74-106) mg/dL Lactic Acid (0.4-2.0) Calcium 8.8 (8.4-10.2) mg/dL Magnesium 1.6 (1.6-2.3) mg/dL Total Bilirubin 1.00 (0.2-1.3) mg/dL AST 18 (14-36) U/L ALT 12 (0-35) U/L Alkaline Phosphatase 89 (38-126) U/L Troponin I (0.000-0.033) ng/mL Serum Total Protein 5.9 L (6.3-8.2) g/dL Albumin 3.6 (3.5-5.0) g/dL Influenza Type A Ag (NEGATIVE) Influenza Type B Ag (NEGATIVE) RSV (PCR) (NEGATIVE) SARS-CoV-2 (PCR) (NEGATIVE) - Progress Progress: improved, re-examined Air Movement: fair Progress Note: 05/08/24 17:23 64 years old is evaluated in the ER for worsening shortness of breath and cough. Patient has history of COPD and has oxygen but has not been using it for the last few days. She received DuoNeb and Solu-Medrol in route but still have decreased air movements. I have given another DuoNeb. Chest x-ray showed right lower lobe infiltrative process and patient is given dose of Rocephin and Zithromax. Will workup showed normal white count, fairly unremarkable chemistries and negative troponin. EKG is normal sinus with no ST elevations. Lactate is normal. Patient is currently on 3 L oxygen with sats dropping to 88%, I believe patient would benefit with observation admission, IV antibiotics and frequent neb treatment along with steroids. I have discussed with Dr. Devlin, reviewed history, workup and agreed with admission. Discussed the results of workup with patient and plan of admission which she understands and agrees. Blood Culture(s) Obtained: Yes Antibiotics given: Yes Discussed with : Sammy Will see patient in: hospital (observation) Counseled pt/family regarding: lab results, diagnosis, need for follow-up, rad results, smoking cessation - Departure Departure Disposition: Observation Clinical Impression: COPD exacerbation, Pneumonia Condition: Stable Critical Care Time: No Referrals: ANGIE ZHANG [Primary Care Provider] - Follow up/PCP as directed Instructions: Chronic Obstructive Pulmonary Disease
[2024-05-08] MEDS ORDERED: DUONEB 0.5-3 MG/3 ml Neb IH ONE (15:40)
[2024-05-08] MEDS: DUONEB 0.5-3 MG/3 ml Neb IH ONE (15:42)
[2024-05-08 15:56] LABS: Absolute Neutrophil Ct (ANC) 4.99 x10^3/uL (1.56-6.13); BASOPHIL % 0.3 % (0.1-1.2); Basophil (Absolute #) 0.02 x10^3/uL (0.01-0.08); Eosinophil % 0.5 % (0.7-5.8); Eosinophil (Absolute #) 0.03 x10^3/uL (0.04-0.36); Hematocrit 51.8 % (34.1-44.9); Hemoglobin 15.1 g/dL (11.2-15.7); IMMATURE GRAN # 0.03 x10^3u/L (0.001-0.031); IMMATURE GRAN % 0.5 % (0.001-0.429); Lymphocyte (Absolute #) 0.93 x10^3/uL (1.18-3.74); Lymphocytes % 14.6 % (19.3-51.7); Mean Cell Volume 91.7 fL (79.4-94.8); Mean Corpuscular Hemoglobin 26.7 pg (25.6-32.2); Mean Corpuscular Hgb Concent. 29.2 g/dL (32.2-35.5); Mean Platelet Volume 8.9 fL (9.4-12.3); Monocyte (Absolute #) 0.39 x10^3/uL (0.24-0.86); Monocytes % 6.1 % (4.7-12.5); Platelet Count 169 x10^3/uL (182-369); Red Blood Count 5.65 x10^6/uL (3.93-5.22); Red Cell Distribution Width 19.1 % (11.7-14.4); White Blood Count 6.4 x10^3/uL (3.98-10.04)
[2024-05-08 16:12] LABS: ALBUMIN 3.6 g/dL (3.5-5.0); ANION GAP 8.2 MEQ/L (5-15); Calcium 8.8 mg/dL (8.4-10.2); Creatinine 1 0.59 mg/dL (0.52-1.04); EST GLOMERULAR FILTRATION RATE 101.8 ML/MIN; MAGNESIUM 1.6 mg/dL (1.6-2.3); Potassium 4.4 mmol/L (3.5-5.1); Total Protein 5.9 g/dL (6.3-8.2)
[2024-05-08 16:33] LABS: INFLUENZA A NEGATIVE (NEGATIVE); INFLUENZA B NEGATIVE (NEGATIVE); RESPIRATORY SYNCTIAL VIRUS NEGATIVE (NEGATIVE); SARS-CoV-2 Xpert Express NEGATIVE (NEGATIVE)
--- NOTE | 2024-05-08 16:33 | XRAY ---
Indication: Short of breath. Comparison: February 25, 2022 Portable chest demonstrates new right lower lobe infiltrate/atelectasis with tiny effusion. Remaining heart and lungs unremarkable. Bony thorax intact.
[2024-05-08] MEDS ORDERED: ROCEPHIN 2 GM/100 ML NACL 2 GM/100 ML IVPB IV ONE (17:17)
[2024-05-08] MEDS: ROCEPHIN 2 GM/100 ML NACL 2 GM/100 ML IVPB IV ONE (17:19)
[2024-05-08] MEDS ORDERED: Zithromax 500 MG/ 250 ML NaCl Premix 500 MG/250 ML IVPB IV ONE (18:09)
[2024-05-08] MEDS: Zithromax 500 MG/ 250 ML NaCl Premix 500 MG/250 ML IVPB IV STA (18:13)
[2024-05-08] MEDS ORDERED: Docusate Sodium 100 MG PO PRN (18:50)
[2024-05-08] MEDS ORDERED: TYLENOL 325 MG PO PRN (18:50)
[2024-05-08] MEDS ORDERED: NORCO 10-325 MG PO SCH (19:00)
[2024-05-08] MEDS ORDERED: NORCO 10-325 MG PO PRN (19:00)
--- NOTE | 2024-05-08 19:04 | PCM.HP ---
History of Present Illness - Chief Complaint Chief Complaint: COPD exacerbation/pneumonia Date: 05/08/24 History of Present Illness: is a 64 year old female with a history of COPD with chronic respiratory failure on 2 L oxygen as needed and at night (has been referred to Dr. Dinero with an upcoming appointment), tobacco abuse, hypertension, and chronic pain, who presented to the hospital with increasing cough productive of yellow-green sputum moderate in amount with associated increasing shortness of breath. Patient reports for the last week and a half she lost her oxygen concentrator and her oxygen was dropping an 88% on room air. She denied any chest pain fever or chills. Patient has no history of coronary artery disease. Patient reports no known sick contact. She is given Solu-Medrol and DuoNeb and route and feeling much better and currently on 2 L oxygen with saturation around 93%. Her dyspnea has improved after initiation of treatment. - Review of Systems Constitutional: No Symptoms Eyes: No Symptoms Ears, Nose, & Throat: No Symptoms Respiratory: Cough, Short Of Breath, Wheezing Abdominal/Gastrointestinal: No Symptoms Genitourinary Symptoms: No Symptoms Musculoskeletal: No Symptoms Skin: No Symptoms Neurological: No Symptoms Psychological: No Symptoms Endocrine: No Symptoms Hematologic/Lymphatic: No Symptoms Immunological/Allergic: No Symptoms All Other Systems: Reviewed and Negative Medications & Allergies Home Medications: Home Medication List Escitalopram Oxalate [Lexapro] 20 mg PO DAILY 03/30/20 [History Confirmed 05/08/24] Nebivolol HCl 5 MG [Bystolic 5 MG] 5 mg PO 1900 02/07/22 [History Confirmed 05/08/24] Prazosin HCl 2 mg PO HS 02/07/22 [History Confirmed 05/08/24] Quetiapine Fumarate 100 mg [Seroquel 100 MG] 300 mg PO HS 02/07/22 [History Confirmed 05/08/24] buPROPion HCL [Wellbutrin Xl] 300 mg PO DAILY 02/07/22 [History Confirmed 05/08/24] Atorvastatin Calcium 10 mg PO 1900 05/08/24 [History Confirmed 05/08/24] Hydrocodone/Acetaminophen [Hydrocodone-Acetamin 10-325 mg] 1 each PO 08 00,1400,1900,2200 05/08/24 [History Confirmed 05/08/24] Meclizine HCl 25 mg [Antivert 25 mg] 25 mg PO HS 05/08/24 [History Confirmed 05/08/24] [place]-3/Dha/Epa/Fish Oil [Fish Oil 1,000 mg Softgel] 1 tab PO 1900 05/08/24 [History Confirmed 05/08/24] Omeprazole 10 mg PO HS 05/08/24 [History Confirmed 05/08/24] Restful Legs 2 tab PO HS 05/08/24 [History Confirmed 05/08/24] buPROPion HCL [Wellbutrin Xl] 150 mg PO DAILY 05/08/24 [History Confirmed 05/08/24] Allergies/Adverse Reactions: Allergies Allergy/AdvReac Type Severity Reaction Status Date / Time aripiprazole [From Abilify] Allergy Severe Lightheaded Verified 02/25/22 09:51 ness cyclobenzaprine HCl Allergy Severe Lightheaded Verified 02/25/22 09:51 [From Flexeril] ness oxycodone [From Percocet] Allergy Verified 02/25/22 09:51 - Past Medical History Past Medical History: Yes Neurological History: No Pertinent History ENT History: No Pertinent History Cardiac History: High Cholesterol, Hypertension Respiratory History: COPD, Emphysema Endocrine Medical History: No Pertinent History Musculoskelatal History: No Pertinent History GI Medical History: GERD History: No Pertinent History Pyscho-Social History: Anxiety, Depression Reproductive Disorders: No Pertinent History Comment: RESTLESS LEG SYNDROME, CHRONIC LOW BACK PAIN, hip pain - Past Surgical History Past Surgical History: Yes Neuro Surgical History: No Pertinent History Cardiac History: No Pertinent History Respiratory Surgery: No Pertinent History GI Surgical History: Cholecystectomy Genitourinary Surgical Hx: No Pertinent History Musculskeletal Surgical Hx: No Pertinent History Female Surgical History: Tubal Ligation Other Surgical History: LEFT FOOT X 4 FOR OSTEOMYELITIS, RT. LEG FOR FRACTURE, 2 eye surgeries on both eyes Significant Family History: no pertinent family hx Family History: Multiple family members with COPD (all smokers) - Social History Smoking Status: Current every day smoker How long have you smoked: 40 + YEARS Exposure to second hand smoke: No Alcohol: None Drug Use: none - Social Determinants of Health Will the patient participate in the screening: Declined to provide - Physical Exam Vital Signs: Vital Signs - 24 hr Temp Pulse Resp BP BP Pulse Ox 05/08/24 18:01 98 H 18 157/75 92 L 05/08/24 18:00 69 16 117/76 96 05/08/24 17:50 67 20 05/08/24 17:46 76 24 05/08/24 17:30 101 H 17 143/97 98 05/08/24 17:29 103 H 18 143/97 90 L 05/08/24 17:26 92 L 05/08/24 17:12 114/77 75 L 05/08/24 17:11 8 L 05/08/24 17:10 58 L 05/08/24 17:03 62 L 05/08/24 17:00 100 H 24 130/89 95 05/08/24 16:31 98 H 20 143/117 88 L 05/08/24 16:30 97 H 19 94 L 05/08/24 16:20 85 20 90 L 05/08/24 16:10 84 16 90 L 05/08/24 16:02 84 19 92 L 05/08/24 15:46 85 22 90 L 05/08/24 15:31 83 16 143/87 98 05/08/24 15:02 84 19 149/90 92 L 05/08/24 15:01 98.1 F 72 24 149/80 92 L General Appearance: no apparent distress, alert Neurologic Exam: alert, oriented x 3, cooperative, clothing worker II-XII nml as tested, normal mood/affect, nml cerebellar function Eye Exam: PERRL/EOMI, eyes nml inspection Ears, Nose, Throat Exam: normal ENT inspection Neck Exam: normal inspection, non-tender, supple, full range of motion Respiratory Exam: diminished breath sounds, wheezing Cardiovascular Exam: regular rate/rhythm, normal heart sounds Gastrointestinal/Abdomen Exam: soft, normal bowel sounds Back Exam: normal range of motion Extremity Exam: normal inspection, normal range of motion Skin Exam: normal color Results - Labs Lab/Micro Results: Lab Results-Last 24 Hours 05/08/24 05/08/24 05/08/24 Range/Units 15:43 15:43 15:43 WBC 6.4 (3.98-10.04) x10^3/uL RBC 5.65 H (3.93-5.22) x10^6/uL Hgb 15.1 (11.2-15.7) g/dL Hct 51.8 H (34.1-44.9) % MCV 91.7 (79.4-94.8) fL MCH 26.7 (25.6-32.2) pg MCHC 29.2 L (32.2-35.5) g/dL RDW 19.1 H (11.7-14.4) % Plt Count 169 L (182-369) x10^3/uL MPV 8.9 L (9.4-12.3) fL Gran % 78.0 H (34.0-71.1) % Immature Gran % (Auto) 0.5 H (0.001-0.429) % Nucleat RBC Rel Count 0.0 (0.00-0.2) % Eos # (Auto) 0.03 L (0.04-0.36) x10^3/uL Immature Gran # (Auto) 0.03 (0.001-0.031) x10^3u/L Absolute Lymphs (auto) 0.93 L (1.18-3.74) x10^3/uL Absolute Monos (auto) 0.39 (0.24-0.86) x10^3/uL Absolute Nucleated RBC 0.00 (0.00-0.012) x10^3u/L Lymphocytes % 14.6 L (19.3-51.7) % Monocytes % 6.1 (4.7-12.5) % Eosinophils % 0.5 L (0.7-5.8) % Basophils % 0.3 (0.1-1.2) % Absolute Granulocytes 4.99 (1.56-6.13) x10^3/uL Basophils # 0.02 (0.01-0.08) x10^3/uL Sodium 137 (135-145) mmol/L Potassium 4.4 (3.5-5.1) mmol/L Chloride 96 L (98-107) mmol/L Carbon Dioxide 38 H (22-30) mmol/L Anion Gap 8.2 (5-15) MEQ/L BUN 15 (7-17) mg/dL Creatinine 0.59 (0.52-1.04) mg/dL Estimated GFR 101.8 ML/MIN Glucose 111 H (74-106) mg/dL Lactic Acid (0.4-2.0) Calcium 8.8 (8.4-10.2) mg/dL Magnesium 1.6 (1.6-2.3) mg/dL Total Bilirubin 1.00 (0.2-1.3) mg/dL AST 18 (14-36) U/L ALT 12 (0-35) U/L Alkaline Phosphatase 89 (38-126) U/L Troponin I < 0.012 (0.000-0.033) ng/mL Serum Total Protein 5.9 L (6.3-8.2) g/dL Albumin 3.6 (3.5-5.0) g/dL Influenza Type A Ag (NEGATIVE) Influenza Type B Ag (NEGATIVE) RSV (PCR) (NEGATIVE) SARS-CoV-2 (PCR) (NEGATIVE) 05/08/24 05/08/24 Range/Units 15:52 15:53 WBC (3.98-10.04) x10^3/uL RBC (3.93-5.22) x10^6/uL Hgb (11.2-15.7) g/dL Hct (34.1-44.9) % MCV (79.4-94.8) fL MCH (25.6-32.2) pg MCHC (32.2-35.5) g/dL RDW (11.7-14.4) % Plt Count (182-369) x10^3/uL MPV (9.4-12.3) fL Gran % (34.0-71.1) % Immature Gran % (Auto) (0.001-0.429) % Nucleat RBC Rel Count (0.00-0.2) % Eos # (Auto) (0.04-0.36) x10^3/uL Immature Gran # (Auto) (0.001-0.031) x10^3u/L Absolute Lymphs (auto) (1.18-3.74) x10^3/uL Absolute Monos (auto) (0.24-0.86) x10^3/uL Absolute Nucleated RBC (0.00-0.012) x10^3u/L Lymphocytes % (19.3-51.7) % Monocytes % (4.7-12.5) % Eosinophils % (0.7-5.8) % Basophils % (0.1-1.2) % Absolute Granulocytes (1.56-6.13) x10^3/uL Basophils # (0.01-0.08) x10^3/uL Sodium (135-145) mmol/L Potassium (3.5-5.1) mmol/L Chloride (98-107) mmol/L Carbon Dioxide (22-30) mmol/L Anion Gap (5-15) MEQ/L BUN (7-17) mg/dL Creatinine (0.52-1.04) mg/dL Estimated GFR ML/MIN Glucose (74-106) mg/dL Lactic Acid 1.4 (0.4-2.0) Calcium (8.4-10.2) mg/dL Magnesium (1.6-2.3) mg/dL Total Bilirubin (0.2-1.3) mg/dL AST (14-36) U/L ALT (0-35) U/L Alkaline Phosphatase (38-126) U/L Troponin I (0.000-0.033) ng/mL Serum Total Protein (6.3-8.2) g/dL Albumin (3.5-5.0) g/dL Influenza Type A Ag NEGATIVE (NEGATIVE) Influenza Type B Ag NEGATIVE (NEGATIVE) RSV (PCR) NEGATIVE (NEGATIVE) SARS-CoV-2 (PCR) NEGATIVE (NEGATIVE) - Radiology Impressions Radiology Exams & Impressions: Radiology Procedures Category Date Time Status CHEST 1 VIEW (PORTABLE) Stat Exams 05/08/24 15:28 Completed - Other Procedures and Tests Respiratory Therapy 05/08/24 18:30 Oxygen Nasal Cannula 4 lpm 05/08/24 18:54 Respiratory Therapy Consult ROUTINE Assessment/Plan (1) Pneumonia Current Visit: Yes Status: Acute Assessment & Plan: IV antibiotics. ST eval to rule out occult dysphagia. Mucinex. Code(s): J18.9 - PNEUMONIA, UNSPECIFIED ORGANISM (2) COPD exacerbation Current Visit: Yes Status: Acute Assessment & Plan: Nebs, steroids, wean O2 as tolerated. Code(s): J44.1 - CHRONIC OBSTRUCTIVE PULMONARY DISEASE W (ACUTE) EXACERBATION (3) Acute respiratory failure with hypoxia Current Visit: Yes Status: Acute Assessment & Plan: Wean O2. PT eval for ambulatory desat assessment. Code(s): J96.01 - ACUTE RESPIRATORY FAILURE WITH HYPOXIA (4) Essential hypertension Current Visit: Yes Status: Acute Assessment & Plan: Monitor BP. Code(s): I10 - ESSENTIAL (PRIMARY) HYPERTENSION Telemedicine Encounter - Telemedicine Encounter Telemedicine Encounter: "The entirety of this encounter was performed via Telemedicine" This visit was performed using real-time audio and video connection between my location and thepatients locationwith the assistance of a surrogateat the patients location. Written or verbal consent was obtained from the patient/guardian to perform this visit [facility]. Any patient questions regarding the telemedicine interaction were answered.
[2024-05-08] MEDS: NORCO 10-325 MG PO SCH (19:05)
[2024-05-08] MEDS: DUONEB 0.5-3 MG/3 ml Neb IH SCH (19:52)
[2024-05-08] MEDS ORDERED: Zocor 10MG ONE (20:04)
[2024-05-08] MEDS: NON-FORMULARY ITEM (Atorvastatin Calcium [Atorvastatin Calcium] 10 MG Tablet) PO SCH (20:10)
[2024-05-08] MEDS: Zocor 10MG PO SCH (20:10)
[2024-05-08] MEDS: Bystolic 5 MG PO SCH (20:11)
[2024-05-08] MEDS ORDERED: solu-MEDROL ONE (21:18)
[2024-05-08] MEDS ORDERED: Sterile H2O 10 ml IJ ONE (21:18)
[2024-05-08] MEDS: Sodium Chloride 0.9% 1000 ML 1,000 ML IV SCH (22:44)
[2024-05-08] MEDS: Seroquel 100 MG PO SCH (22:45)
[2024-05-08] MEDS: ANTIVERT 25 MG PO SCH (22:45)
[2024-05-08] MEDS: Mucinex 600MG ER Tabs PO SCH (22:45)
[2024-05-08] MEDS: solu-MEDROL 40 MG, Sterile H2O 10 ml 1 ML IV SCH (22:45)
[2024-05-08] MEDS: RESTFUL LEGS PO SCH (22:46)
[2024-05-08] MEDS: NON-FORMULARY ITEM (Prazosin Hcl [Prazosin Hcl] 2 MG Capsule) PO SCH (22:47)
[2024-05-08] MEDS: NON-FORMULARY ITEM (Omeprazole [Omeprazole] 10 MG Capsule.Dr) PO SCH (22:47)
[2024-05-09] MEDS ORDERED: Ativan 0.5 MG PO PRN (02:35)
[2024-05-09] MEDS ORDERED: Ativan 2 MG/1 ML VIAL IV PRN (02:37)
[2024-05-09 05:31] LABS: Absolute Neutrophil Ct (ANC) 6.94 x10^3/uL (1.56-6.13); BASOPHIL % 0.1 % (0.1-1.2); Basophil (Absolute #) 0.01 x10^3/uL (0.01-0.08); Eosinophil (Absolute #) 0 x10^3/uL (0.04-0.36); Hematocrit 51.9 % (34.1-44.9); Hemoglobin 14.9 g/dL (11.2-15.7); IMMATURE GRAN # 0.07 x10^3u/L (0.001-0.031); IMMATURE GRAN % 0.9 % (0.001-0.429); Lymphocyte (Absolute #) 0.33 x10^3/uL (1.18-3.74); Lymphocytes % 4.4 % (19.3-51.7); Mean Cell Volume 92.7 fL (79.4-94.8); Mean Corpuscular Hemoglobin 26.6 pg (25.6-32.2); Mean Corpuscular Hgb Concent. 28.7 g/dL (32.2-35.5); Mean Platelet Volume 9.4 fL (9.4-12.3); Monocyte (Absolute #) 0.13 x10^3/uL (0.24-0.86); Monocytes % 1.7 % (4.7-12.5); NUCLEATED RBC # 0.03 x10^3u/L (0.00-0.012); NUCLEATED RBC % 0.4 % (0.00-0.2); Neutrophil % 92.9 % (34.0-71.1); Platelet Count 178 x10^3/uL (182-369); Red Cell Distribution Width 19.6 % (11.7-14.4); White Blood Count 7.5 x10^3/uL (3.98-10.04)
[2024-05-09] MEDS ORDERED: solu-MEDROL ONE (05:51)
[2024-05-09] MEDS ORDERED: Sterile H2O 10 ml IJ ONE (05:51)
[2024-05-09 05:58] LABS: Calcium 8.7 mg/dL (8.4-10.2); Creatinine 1 0.55 mg/dL (0.52-1.04); EST GLOMERULAR FILTRATION RATE 103.6 ML/MIN; Potassium 4.8 mmol/L (3.5-5.1)
[2024-05-09] MEDS ORDERED: MEDICATION INTERVENTION MC SCH ×2 (07:15)
[2024-05-09 09:16] LABS: Slide Review 1 YES
[2024-05-09] MEDS ORDERED: NON-FORMULARY ITEM (Bupropion Hcl [Wellbutrin Xl] 300 MG Tab.Er.24h) PO SCH (10:00)
[2024-05-09] MEDS ORDERED: NON-FORMULARY ITEM (Escitalopram Oxalate [Lexapro] 20 MG Tablet) PO SCH (10:00)
[2024-05-09] MEDS: Advair Hfa 115/21 Common canister IH SCH (10:14)
[2024-05-09] MEDS: ROCEPHIN 1 GM / 100 ML NaCl 1 GM/100 ML IVPB IV SCH (10:33)
[2024-05-09] MEDS: Lexapro PO SCH (10:34)
[2024-05-09] MEDS: Protonix 20MG Tablet PO SCH (10:34)
[2024-05-09] MEDS: Acidophilus TABLET PO SCH (10:34)
[2024-05-09] MEDS: Wellbutrin XL 150 MG PO SCH (10:35)
--- NOTE | 2024-05-09 10:35 | PCM.DS ---
Discharge Summary Date of Admission: 05/08/24 18:21 Date of Discharge: 05/09/24 Admitting Physician: LEANNE YOON MD Primary Care Provider: ANGIE ZHANG Allergies Allergies aripiprazole [From Abilify] Allergy (Severe, Verified 02/25/22 09:51) Lightheadedness cyclobenzaprine HCl [From Flexeril] Allergy (Severe, Verified 02/25/22 09:51) Lightheadedness oxycodone [From Percocet] Allergy (Verified 02/25/22 09:51) Hospital Summary - Hospital Course Hospital Course: 05/09/24 is a 64 year old female with a history of COPD with chronic respiratory failure on 2 L oxygen as needed and at night (has been referred to Dr. Dinero with an upcoming appointment), tobacco abuse, hypertension, and chronic pain. She presented to the hospital with increasing cough productive of yellow-green sputum moderate in amount with associated increasing shortness of breath. Patient reports for the last week and a half her oxygen was dropping an 88% on room air. She denied any chest pain fever or chills. Patient has no history of coronary artery disease. Patient reports no known sick contact. She is given Solu-Medrol and DuoNeb and route and feeling much better and on baseline 2 L oxygen with saturation around 93%. Her dyspnea has improved after initiation of treatment. She is making arrangements to obtain her portable oxygen tanks and neb machines from her daughters. She currently has restraining order against her so she has to have a third constitution party obtain her items. She had a fall in the room last night and fell on her bottom. She worked with PT today and [facility] felt pt needs futher eval of her leg weakness. CT lumbar spine pending. Pt denies loss of bowel or bladder. She denies any further concerns and wants to d/c today. - Vitals & Intake/Output Vital Signs: Vital Signs Temperature 98.0 F 05/09/24 07:07 Pulse Rate 69 05/09/24 07:07 Respiratory Rate 16 05/09/24 07:07 Blood Pressure 124/71 05/09/24 07:07 O2 Sat by Pulse Oximetry 89 L 05/09/24 07:07 Intake & Output: Intake & Output 05/06/24 05/07/24 05/08/2417/25 11:59 11:59 11:59 11:59 Intake Total 1933 Output Total 600 Balance 1333 Weight 113.1 kg - Lab Result Diagrams: 05/09/24 05:25 05/09/24 05:25 Lab Results-Last 24 Hrs: Lab Results-Last 24 Hours 05/08/24 05/08/24 05/08/24 Range/Units 15:43 15:43 15:43 WBC 6.4 (3.98-10.04) x10^3/uL RBC 5.65 H (3.93-5.22) x10^6/uL Hgb 15.1 (11.2-15.7) g/dL Hct 51.8 H (34.1-44.9) % MCV 91.7 (79.4-94.8) fL MCH 26.7 (25.6-32.2) pg MCHC 29.2 L (32.2-35.5) g/dL RDW 19.1 H (11.7-14.4) % Plt Count 169 L (182-369) x10^3/uL MPV 8.9 L (9.4-12.3) fL Gran % 78.0 H (34.0-71.1) % Immature Gran % (Auto) 0.5 H (0.001-0.429) % Nucleat RBC Rel Count 0.0 (0.00-0.2) % Eos # (Auto) 0.03 L (0.04-0.36) x10^3/uL Immature Gran # (Auto) 0.03 (0.001-0.031) x10^3u/L Absolute Lymphs (auto) 0.93 L (1.18-3.74) x10^3/uL Absolute Monos (auto) 0.39 (0.24-0.86) x10^3/uL Absolute Nucleated RBC 0.00 (0.00-0.012) x10^3u/L Lymphocytes % 14.6 L (19.3-51.7) % Monocytes % 6.1 (4.7-12.5) % Eosinophils % 0.5 L (0.7-5.8) % Basophils % 0.3 (0.1-1.2) % Absolute Granulocytes 4.99 (1.56-6.13) x10^3/uL Basophils # 0.02 (0.01-0.08) x10^3/uL Sodium 137 (135-145) mmol/L Potassium 4.4 (3.5-5.1) mmol/L Chloride 96 L (98-107) mmol/L Carbon Dioxide 38 H (22-30) mmol/L Anion Gap 8.2 (5-15) MEQ/L BUN 15 (7-17) mg/dL Creatinine 0.59 (0.52-1.04) mg/dL Estimated GFR 101.8 ML/MIN Glucose 111 H (74-106) mg/dL POC Glucometer (74 to 106) mg/dL Hemoglobin A1c (4.5-6.0) % Lactic Acid (0.4-2.0) Calcium 8.8 (8.4-10.2) mg/dL Magnesium 1.6 (1.6-2.3) mg/dL Total Bilirubin 1.00 (0.2-1.3) mg/dL AST 18 (14-36) U/L ALT 12 (0-35) U/L Alkaline Phosphatase 89 (38-126) U/L Troponin I < 0.012 (0.000-0.033) ng/mL Serum Total Protein 5.9 L (6.3-8.2) g/dL Albumin 3.6 (3.5-5.0) g/dL Influenza Type A Ag (NEGATIVE) Influenza Type B Ag (NEGATIVE) RSV (PCR) (NEGATIVE) SARS-CoV-2 (PCR) (NEGATIVE) Slides for Path Review 05/08/24 05/08/24 05/08/24 Range/Units 15:52 15:53 19:35 WBC (3.98-10.04) x10^3/uL RBC (3.93-5.22) x10^6/uL Hgb (11.2-15.7) g/dL Hct (34.1-44.9) % MCV (79.4-94.8) fL MCH (25.6-32.2) pg MCHC (32.2-35.5) g/dL RDW (11.7-14.4) % Plt Count (182-369) x10^3/uL MPV (9.4-12.3) fL Gran % (34.0-71.1) % Immature Gran % (Auto) (0.001-0.429) % Nucleat RBC Rel Count (0.00-0.2) % Eos # (Auto) (0.04-0.36) x10^3/uL Immature Gran # (Auto) (0.001-0.031) x10^3u/L Absolute Lymphs (auto) (1.18-3.74) x10^3/uL Absolute Monos (auto) (0.24-0.86) x10^3/uL Absolute Nucleated RBC (0.00-0.012) x10^3u/L Lymphocytes % (19.3-51.7) % Monocytes % (4.7-12.5) % Eosinophils % (0.7-5.8) % Basophils % (0.1-1.2) % Absolute Granulocytes (1.56-6.13) x10^3/uL Basophils # (0.01-0.08) x10^3/uL Sodium (135-145) mmol/L Potassium (3.5-5.1) mmol/L Chloride (98-107) mmol/L Carbon Dioxide (22-30) mmol/L Anion Gap (5-15) MEQ/L BUN (7-17) mg/dL Creatinine (0.52-1.04) mg/dL Estimated GFR ML/MIN Glucose (74-106) mg/dL POC Glucometer (74 to 106) mg/dL Hemoglobin A1c (4.5-6.0) % Lactic Acid 1.4 (0.4-2.0) Calcium (8.4-10.2) mg/dL Magnesium (1.6-2.3) mg/dL Total Bilirubin (0.2-1.3) mg/dL AST (14-36) U/L ALT (0-35) U/L Alkaline Phosphatase (38-126) U/L Troponin I < 0.012 (0.000-0.033) ng/mL Serum Total Protein (6.3-8.2) g/dL Albumin (3.5-5.0) g/dL Influenza Type A Ag NEGATIVE (NEGATIVE) Influenza Type B Ag NEGATIVE (NEGATIVE) RSV (PCR) NEGATIVE (NEGATIVE) SARS-CoV-2 (PCR) NEGATIVE (NEGATIVE) Slides for Path Review 05/08/24 05/08/24 05/09/24 Range/Units 22:13 23:20 05:12 WBC (3.98-10.04) x10^3/uL RBC (3.93-5.22) x10^6/uL Hgb (11.2-15.7) g/dL Hct (34.1-44.9) % MCV (79.4-94.8) fL MCH (25.6-32.2) pg MCHC (32.2-35.5) g/dL RDW (11.7-14.4) % Plt Count (182-369) x10^3/uL MPV (9.4-12.3) fL Gran % (34.0-71.1) % Immature Gran % (Auto) (0.001-0.429) % Nucleat RBC Rel Count (0.00-0.2) % Eos # (Auto) (0.04-0.36) x10^3/uL Immature Gran # (Auto) (0.001-0.031) x10^3u/L Absolute Lymphs (auto) (1.18-3.74) x10^3/uL Absolute Monos (auto) (0.24-0.86) x10^3/uL Absolute Nucleated RBC (0.00-0.012) x10^3u/L Lymphocytes % (19.3-51.7) % Monocytes % (4.7-12.5) % Eosinophils % (0.7-5.8) % Basophils % (0.1-1.2) % Absolute Granulocytes (1.56-6.13) x10^3/uL Basophils # (0.01-0.08) x10^3/uL Sodium (135-145) mmol/L Potassium (3.5-5.1) mmol/L Chloride (98-107) mmol/L Carbon Dioxide (22-30) mmol/L Anion Gap (5-15) MEQ/L BUN (7-17) mg/dL Creatinine (0.52-1.04) mg/dL Estimated GFR ML/MIN Glucose (74-106) mg/dL POC Glucometer 257 H (74 to 106) mg/dL Hemoglobin A1c 6.14 H (4.5-6.0) % Lactic Acid (0.4-2.0) Calcium (8.4-10.2) mg/dL Magnesium (1.6-2.3) mg/dL Total Bilirubin (0.2-1.3) mg/dL AST (14-36) U/L ALT (0-35) U/L Alkaline Phosphatase (38-126) U/L Troponin I < 0.012 (0.000-0.033) ng/mL Serum Total Protein (6.3-8.2) g/dL Albumin (3.5-5.0) g/dL Influenza Type A Ag (NEGATIVE) Influenza Type B Ag (NEGATIVE) RSV (PCR) (NEGATIVE) SARS-CoV-2 (PCR) (NEGATIVE) Slides for Path Review 05/09/24 05/09/24 05/09/24 Range/Units 05:25 05:25 07:30 WBC 7.5 (3.98-10.04) x10^3/uL RBC 5.60 H (3.93-5.22) x10^6/uL Hgb 14.9 (11.2-15.7) g/dL Hct 51.9 H (34.1-44.9) % MCV 92.7 (79.4-94.8) fL MCH 26.6 (25.6-32.2) pg MCHC 28.7 L (32.2-35.5) g/dL RDW 19.6 H (11.7-14.4) % Plt Count 178 L (182-369) x10^3/uL MPV 9.4 (9.4-12.3) fL Gran % 92.9 H (34.0-71.1) % Immature Gran % (Auto) 0.9 H (0.001-0.429) % Nucleat RBC Rel Count 0.4 H (0.00-0.2) % Eos # (Auto) 0 L (0.04-0.36) x10^3/uL Immature Gran # (Auto) 0.07 H (0.001-0.031) x10^3u/L Absolute Lymphs (auto) 0.33 L (1.18-3.74) x10^3/uL Absolute Monos (auto) 0.13 L (0.24-0.86) x10^3/uL Absolute Nucleated RBC 0.03 H (0.00-0.012) x10^3u/L Lymphocytes % 4.4 L (19.3-51.7) % Monocytes % 1.7 L (4.7-12.5) % Eosinophils % 0.0 L (0.7-5.8) % Basophils % 0.1 (0.1-1.2) % Absolute Granulocytes 6.94 H (1.56-6.13) x10^3/uL Basophils # 0.01 (0.01-0.08) x10^3/uL Sodium 140 (135-145) mmol/L Potassium 4.8 (3.5-5.1) mmol/L Chloride 98 (98-107) mmol/L Carbon Dioxide 36 H (22-30) mmol/L Anion Gap 12.0 (5-15) MEQ/L BUN 14 (7-17) mg/dL Creatinine 0.55 (0.52-1.04) mg/dL Estimated GFR 103.6 ML/MIN Glucose 164 H (74-106) mg/dL POC Glucometer 149 H (74 to 106) mg/dL Hemoglobin A1c (4.5-6.0) % Lactic Acid (0.4-2.0) Calcium 8.7 (8.4-10.2) mg/dL Magnesium (1.6-2.3) mg/dL Total Bilirubin (0.2-1.3) mg/dL AST (14-36) U/L ALT (0-35) U/L Alkaline Phosphatase (38-126) U/L Troponin I (0.000-0.033) ng/mL Serum Total Protein (6.3-8.2) g/dL Albumin (3.5-5.0) g/dL Influenza Type A Ag (NEGATIVE) Influenza Type B Ag (NEGATIVE) RSV (PCR) (NEGATIVE) SARS-CoV-2 (PCR) (NEGATIVE) Slides for Path Review YES Micro Results-Entire Visit: Accuchecks Date 05/09/24 Date 05/08/24 Time 07:32 Time 22:16 - Radiology Exams Ordered Rad Exams-Entire Visit: Radiology Procedures Category Date Time Status CHEST 1 VIEW (PORTABLE) Stat Exams 05/08/24 15:28 Completed - Procedures and Test Procedures and Tests throughout Hospitalization: Therapy Orders & Screens 05/08/24 15:46 Respiratory Therapy Assessment DAILY Comment: 05/08/24 18:30 Oxygen Nasal Cannula 4 lpm Comment: 05/08/24 18:50 PT Eval & Treat (MD Order) ONCE Reason for Eval:: hypoxia Diagnosis: COPD exacerbation/pneumonia 05/08/24 18:51 ST Eval & Treat (MD Order) ROUTINE Comment: Physician Instructions: Reason For Exam: Evaluate: Yes Treat: Yes Reason for Eval: RLL pneumonia. Rule out occult dysphagia. Diagnosis: COPD exacerbation/pneumonia 05/08/24 18:54 Respiratory Therapy Consult ROUTINE Comment: Reason For Exam: Diagnosis: COPD exacerbation/pneumonia 05/08/24 19:56 Respiratory Therapy Assessment DAILY Comment: Diagnosis: COPD exacerbation/pneumonia 05/09/24 07:36 RT Miscellaneous Order ROUTINE Comment: Physician Instructions: Reason For Exam: eval and treat kepp O2 > 92% Diagnosis: COPD exacerbation/pneumonia 05/09/24 07:38 Respiratory MDI BID Comment: Diagnosis: COPD exacerbation/pneumonia Discharge Exam General Appearance: no apparent distress, alert Neurologic Exam: alert, oriented x 3, cooperative, normal mood/affect, nml cerebellar function, sensation nml, motor weakness (BLLE), No motor deficits Eye Exam: PERRL, EOMI, eyes nml inspection Ears, Nose, Throat Exam: normal ENT inspection, pharynx normal, moist mucous membranes Neck Exam: normal inspection, non-tender, supple, full range of motion Respiratory Exam: normal breath sounds, lungs clear, No respiratory distress Cardiovascular Exam: regular rate/rhythm, normal heart sounds Gastrointestinal/Abdomen Exam: soft, No tenderness, No mass Pelvic Exam: deferred Rectal Exam: deferred Back Exam: normal inspection, normal range of motion, No CVA tenderness, No vertebral tenderness Extremity Exam: normal inspection, normal range of motion Skin Exam: normal color, warm, dry Final Diagnosis/Problem List - Final Discharge Diagnosis/Problem (1) Acute respiratory failure with hypoxia Current Visit: Yes Status: Acute Code(s): J96.01 - ACUTE RESPIRATORY FAILURE WITH HYPOXIA (2) COPD exacerbation Current Visit: Yes Status: Acute Code(s): J44.1 - CHRONIC OBSTRUCTIVE PULMONARY DISEASE W (ACUTE) EXACERBATION (3) Essential hypertension Current Visit: Yes Status: Acute Code(s): I10 - ESSENTIAL (PRIMARY) HYPERTENSION (4) Pneumonia Current Visit: Yes Status: Acute Assessment & Plan: -IV antibiotics. -ST eval to rule out occult dysphagia- pt had no concerns per ST. - Mucinex. Code(s): J18.9 - PNEUMONIA, UNSPECIFIED ORGANISM (5) Ground-level fall Current Visit: Yes Status: Acute Assessment & Plan: - Pt fell in room last night with staff. - Pt reports she feel on her bottom and denies any injury - PT eval - Pt states she has a cane at home and needs no further equipment. - CT lumbar spine reviewed and no acute concerns seen. This D/C plan took > 32 minutes. Code(s): W18.30XA - FALL ON SAME LEVEL, UNSPECIFIED, INITIAL ENCOUNTER - Discharge Discharge Date: 05/09/24 Disposition: HOME HEALTH SERVICE Condition: Stable Prescriptions: New Nebulizer 1 each UD #1 misc Albuterol/Ipratropium 3ml Neb* [DUONEB 0.5-3 MG/3 ml Neb] 3 ml IH Q6HRT #0 cefuroxime axetiL [Cefuroxime] 500 mg PO BID 7 Days #14 tablet Prednisone 20 mg [Deltasone 20 mg] 20 mg PO BID 5 Days #10 tablet Continue Escitalopram Oxalate [Lexapro] 20 mg PO DAILY Nebivolol HCl 5 MG [Bystolic 5 MG] 5 mg PO 1900 Quetiapine Fumarate 100 mg [Seroquel 100 MG] 300 mg PO HS Prazosin HCl 2 mg PO HS buPROPion HCL [Wellbutrin Xl] 300 mg PO DAILY [place]-3/Dha/Epa/Fish Oil [Fish Oil 1,000 mg Softgel] 1 tab PO 1900 Omeprazole 10 mg PO HS Atorvastatin Calcium 10 mg PO 1900 Hydrocodone/Acetaminophen [Hydrocodone-Acetamin 10-325 mg] 1 each PO 0800,1400,1900,2200 Meclizine HCl 25 mg [Antivert 25 mg] 25 mg PO HS buPROPion HCL [Wellbutrin Xl] 150 mg PO DAILY Restful Legs 2 tab PO HS Follow up with: ANGIE ZHANG [Primary Care Provider] - 05/22/24 1:00 pm
[2024-05-09] MEDS: ENOXAPARIN SODIUM SQ SCH (10:47)
[2024-05-09] MEDS: FISH OIL 1,000 MG CAPSULE PO SCH (11:29)
--- NOTE | 2024-05-09 14:07 | XRAY ---
Indication: Bilateral leg weakness following fall. Multiple contiguous axial images obtained through the lumbar spine. Sagittal and coronal reformatted images obtained. Comparison: CT abdomen/pelvis February 07, 2022. Stable L5-S1 degenerative vacuum disc phenomena with moderate bilateral degenerative facet hypertrophy. Stable mild degenerative changes both SI joints. No acute fracture, suspicious bony lesions, or spinal canal stenosis. Remaining facets are bilaterally symmetric. Sagittal and coronal reformatted images again demonstrates normal lumbar alignment. Vertebral body heights/disc spaces maintained. No acute compression fracture or subluxation. Visualized noncontrasted soft tissues again demonstrates minimal aortoiliac calcifications and incompletely visualized left lung base pleural-parenchymal opacities. Impression: Stable L5-S1 degenerative and bilateral SI joint degenerative changes. Again incidental arteriosclerotic disease and left lung base pleural-parenchymal opacities. No new/acute findings.
[2024-05-09 14:13] VITALS: RESP 18; O2SAT 90
[2024-05-09] MEDS: Zithromax 500 MG/ 250 ML NaCl Premix 500 MG/250 ML IVPB IV SCH (16:16)
[2024-05-09 16:54] VITALS: BP 124/60; PULSE 90; TEMP 98
[2024-05-09] MEDS: Zofran 4 MG/2 ML VIAL IV PRN (17:07)
== END 2024-05-09 17:55 | disposition home health service (06) ==
LOC: ED 14:58 → MED SURG 18:21
PROVIDERS: ADMIT Internal Medicine; ATTEND Internal Medicine
DX: J96.01 Acute respiratory failure with hypoxia (principal); J44.1 Chronic obstructive pulmonary disease with (acute) exacerbation; I10 Essential (primary) hypertension; J18.9 Pneumonia, unspecified organism; W18.30XA Fall on same level, unspecified, initial encounter; Z99.81 Dependence on supplemental oxygen; Z79.899 Other long term (current) drug therapy; F17.200 Nicotine dependence, unspecified, uncomplicated
CPT/HCPCS: 0241U; 36415; 71045; 72131; 80048; 80053; 82947; 83036; 83605; 83735; 84484; 85025; 87040; 93005; 93041; 93268; 94640; 94760; 96365; 96374; 99285; J0456; J0696; J2405; J2919; A9270-GY; G0378